=== PATIENT | male | born 1965 | race African-American/Black ===

== ENCOUNTER 2017-08-25 07:42 | Emergency (ER) | payer OTHER ==
[~2017-08-25] VITALS: Ht 167.6 cm; Wt 93.4 kg
[~2017-08-25 07:42] MED LIST: AMLO10TA2 PO; AMLO10TA4 PO; AMOX1TAB61 PO; ASPI-612 PO; ATOR40TA59 PO; CARV25TA2 PO; CLON0.2T PO; CYCL5TAB PO; DOXA1TAB PO; FURO-68 PO; HYDR-2758 PO; HYDR-2869 PO; HYDR-971 PO; HYDR12.58 PO; INSU100C4 SQ; INSU100V13 SQ; ISOS30TA4 PO; LABE200T2 PO; LEVO750T31 PO; LISI1TAB7 PO; LISI40TA PO; LOSA100T6 PO; METO25TA4 PO; POLY17PO29 PO
[2017-08-25] MEDS ORDERED: BENZONATATE 100 MG CAPSULE. PO ONE (08:15)
[2017-08-25] MEDS ORDERED: IPRATRPIUM/ALBUTEROL 0.5/2.5MG 3 ML NEBU. NEB ONE (08:15)
[2017-08-25] MEDS ORDERED: predniSONE 20 MG TABLET PO ONE (08:15)
--- NOTE | 2017-08-25 08:30 | PHYS DOC ---
Past Medical History Past Medical History: Cancer, CHF, Diabetes-Type II, Hypertension, Other Additional Past Medical Histor: COLON CA Past Surgical History: Cholecystectomy, Colectomy Alcohol Use: Occasionally Drug Use: None Adult General Chief Complaint Chief Complaint: COUGH HPI HPI Patient is a 52 year old male with history of diabetes type 2, hypertension, who presents today with a productive cough that began one week. Patient denies any fever. Denies any chest pain or shortness of breath. PCP Dr. Ricketts Review of Systems Review of Systems Constitutional: Denies fever or chills [] Eyes: Denies change in visual acuity, redness, or eye pain [] HENT: Denies nasal congestion or sore throat [] Respiratory: Productive cough, denies shortness of breath [] Cardiovascular: No additional information not addressed in HPI [] GI: Denies abdominal pain, nausea, vomiting, bloody stools or diarrhea [] : Denies dysuria or hematuria [] Musculoskeletal: Denies back pain or joint pain [] Integument: Denies rash or skin lesions [] Neurologic: Denies headache, focal weakness or sensory changes [] Current Medications Current Medications Current Medications Medications (Trade) Dose Ordered Sig/Adam Start Time Stop Time Status Last Admin Dose Admin Albuterol/ Ipratropium (Duoneb) 3 ml 1X ONCE 08/25/17 08:15 08/25/17 08:16 DC 08/25/17 08:52 3 ML Benzonatate (Tessalon Perle) 200 mg 1X ONCE 08/25/17 08:15 08/25/17 08:16 DC 08/25/17 08:25 200 MG Ceftriaxone Sodium (Rocephin Im) 1 gm 1X ONCE 08/25/17 09:30 08/25/17 09:31 DC 08/25/17 09:48 1 GM Furosemide (Lasix) 40 mg 1X ONCE 08/25/17 09:30 08/25/17 09:31 DC 08/25/17 09:49 40 MG Hydralazine HCl (Apresoline) 100 mg 1X STAT 08/25/17 09:20 08/25/17 09:21 DC 08/25/17 09:53 100 MG Labetalol HCl (Trandate) 100 mg 1X STAT 08/25/17 09:21 08/25/17 09:22 DC 08/25/17 09:53 100 MG Lidocaine HCl (Xylocaine-Mpf 1% Vial) 2 ml 1X ONCE 08/25/17 09:30 08/25/17 09:31 DC 08/25/17 09:48 2 ML Prednisone (Prednisone) 60 mg 1X ONCE 08/25/17 08:15 08/25/17 08:16 DC 08/25/17 08:25 60 MG Allergies Allergies Allergies Coded Allergies Type Severity Reaction Last Updated Verified No Known Drug Allergies 03/20/16 No Physical Exam Physical Exam Constitutional: Well developed, well nourished, no acute distress, non-toxic appearance. [] HENT: Normocephalic, atraumatic, bilateral external ears normal, oropharynx moist, no oral exudates, nose normal. [] Eyes: PERRLA, EOMI, conjunctiva normal, no discharge. [] Neck: Normal range of motion, no tenderness, supple, no stridor. [] Cardiovascular:Heart rate regular rhythm, no murmur [] Lungs & Thorax: Patient is actively coughing, diminished breath sounds to posterior lung bases. Abdomen: Bowel sounds normal, soft, no tenderness, no masses, no pulsatile masses. [] Skin: Warm, dry, no erythema, no rash. [] Back: No tenderness, no CVA tenderness. [] Extremities: No tenderness, no cyanosis, no clubbing, ROM intact, no edema. [] Neurologic: Alert and oriented X 3, normal motor function, normal sensory function, no focal deficits noted. [] Psychologic: Affect normal, judgement normal, mood normal. [] Current Patient Data Vital Signs Vital Signs Date Time Temp Pulse Resp B/P (MAP) Pulse Ox O2 Delivery O2 Flow Rate FiO2 08/25/17 09:53 88 182/92 08/25/17 08:52 93 Room Air 08/25/17 07:58 97.7 18 97.7 EKG EKG [] Radiology/Procedures Radiology/Procedures []PROCEDURE: CHEST PA & LATERAL Chest, 2 views, 08/25/2017: History: Cough for one week Comparison is made to a study from 06/15/2017. The heart size and pulmonary vascularity are normal. There is a faint opacity abutting the anterior aspect of the inferior portion of the oblique fissure on the lateral view, most likely lying on the right. The appearance suggests minimal atelectasis/infiltrate. The lungs are otherwise clear. There is no evidence of pleural fluid. The lungs are somewhat hyperexpanded. IMPRESSION: Minimal right middle lobe atelectasis/infiltrate. DICTATED and SIGNED BY: MIRI TAYLOR MD DATE: 08/25/17 0857 CC: TERE RICKETTS MD; MERLINE CASTRO APRN; NON,STAFF ~ Course & Med Decision Making Course & Med Decision Making Pertinent Labs and Imaging studies reviewed. (See chart for details) This is a 52-year-old male patient presenting to the ED today with a productive cough for 1 week. Patient's lungs were diminished posterior lung bases, he was given a DuoNeb treatment. His chest x-ray showed -Minimal right middle lobe atelectasis/infiltrate. Highly suspect he has pneumonia. Vitals on arrival to the ED temperature 97.7, heart rate 88, respiration 18 on room air, O2 sats 95% on room air, blood pressure to 202/103, patient states he has not taken his blood pressure medicines this morning. He was given his morning blood pressure medicines and reminded to ensure he takes his BP medicines as prescribed. Patient was given 1 g of Rocephin. He was discharged on Levaquin. He was instructed to follow-up with his own PCP in 1-3 days. Patient was instructed to return to the ED if his symptoms worsen. Dragon Disclaimer Dragon Disclaimer This electronic medical record was generated, in whole or in part, using a voice recognition dictation system. Departure Departure Impression: Primary Impression: Community acquired bacterial pneumonia Additional Impression: Hypertension Disposition: 01 HOME, SELF-CARE Condition: STABLE Referrals: TERE RICKETTS MD (PCP) follow up with your doctor in 1-3 days Patient Instructions: Hypertension, Pneumonia, Adult Additional Instructions: You have pneumonia. We put you on antibiotics, take them as prescribed. Please return to the emergency room at any point your symptoms worsen. Return to the emergency room if you not able to take your medicines. Ensure you complete your antibiotics. Follow-up with your doctor in the next 1-3 days. Scripts Promethazine HCl/Codeine (Prometh-Codein 6.25-10 mg/5 ml) 5 Ml Syrup 5 ML PO Q6HRS, #80 MISC Prov: MERLINE CASTRO APRN 08/25/17 Levofloxacin (LEVAQUIN) 500 Mg Tablet 1 TAB PO DAILY, #7 TAB Prov: MERLINE CASTRO APRN 08/25/17 Albuterol Sulfate (Proair Respiclick) 90 Mcg Aer.pow.ba 1 PUFF IH PRN Q6HRS Y for SHORTNESS OF BREATH, #1 INHALER Prov: MERLINE CASTRO APRN 08/25/17 Problem Qualifiers Additional Impression: Hypertension Hypertension type: unspecified Qualified Codes: I10 - Essential (primary) hypertension MERLINE CASTRO APRN Aug 25, 2017 08:30
--- NOTE | 2017-08-25 09:06 | RAD ---
Chest, 2 views, 08/25/2017: History: Cough for one week Comparison is made to a study from 06/15/2017. The heart size and pulmonary vascularity are normal. There is a faint opacity abutting the anterior aspect of the inferior portion of the oblique fissure on the lateral view, most likely lying on the right. The appearance suggests minimal atelectasis/infiltrate. The lungs are otherwise clear. There is no evidence of pleural fluid. The lungs are somewhat hyperexpanded. IMPRESSION: Minimal right middle lobe atelectasis/infiltrate.
[2017-08-25] MEDS ORDERED: LABETALOL HCL 100 MG TABLET. PO STA (09:21)
[2017-08-25] MEDS ORDERED: cefTRIAXone IM 1 GM VIAL IM ONE (09:30)
[2017-08-25] MEDS ORDERED: FUROSEMIDE 40 MG TABLET. PO ONE (09:30)
[2017-08-25] MEDS ORDERED: LIDOCAINE 1% PF 2 ML VIAL. INJ ONE (09:30)
[2017-08-25] MEDS ORDERED: PROAIR RESPICL90 MCG IH (10:03)
[2017-08-25] MEDS ORDERED: LEVO500T59 PO (10:03)
[2017-08-25] MEDS ORDERED: PROM5SYR2 PO (10:03)
[2017-08-25 10:17] VITALS: BP 148/82
== END 2017-08-25 10:18 | disposition home or self-care (01) ==
LOC: ER 07:42
DX: J15.9 Unspecified bacterial pneumonia (principal); I11.0 Hypertensive heart disease with heart failure; I50.9 Heart failure, unspecified; E11.9 Type 2 diabetes mellitus without complications; Z85.038 Personal history of other malignant neoplasm of large intestine; Z90.49 Acquired absence of other specified parts of digestive tract
CPT/HCPCS: 71020; 94250; 94640; 96372; 99284; J0696; J7512; J7620

== ENCOUNTER 2017-11-28 16:09 | Emergency (ER) | payer OTHER ==
[2017-11-28] MEDS: DIPHTH,PERTUSS(ACELL),TET TOX 0.5 ML DISP.SYRIN. VAX IM ×2 (17:33)
== END 2017-11-28 17:38 | disposition home or self-care (01) ==
LOC: ER 16:09
DX: S51.852A Open bite of left forearm, initial encounter (principal); E11.9 Type 2 diabetes mellitus without complications; I11.0 Hypertensive heart disease with heart failure; I50.9 Heart failure, unspecified; F14.10 Cocaine abuse, uncomplicated; Z23 Encounter for immunization; Z87.891 Personal history of nicotine dependence; W54.0XXA Bitten by dog, initial encounter; Y93.89 Activity, other specified; Y92.89 Other specified places as the place of occurrence of the external cause; Y99.8 Other external cause status
CPT/HCPCS: 90471; 90715; 99283-25

== ENCOUNTER → 2017-12-02 | Outpatient (CLI) | payer OTHER | END | disposition home or self-care (01) | LOC: RAD 12:35 | DX: M16.11 Unilateral primary osteoarthritis, right hip (principal); M46.06 Spinal enthesopathy, lumbar region; R05 Cough; R06.02 Shortness of breath | CPT/HCPCS: 71046; 72100; 73502 ==

== ENCOUNTER → 2017-12-08 | Outpatient (CLI) | payer OTHER | END | disposition home or self-care (01) | LOC: KCIC CT 14:53 | DX: R10.9 Unspecified abdominal pain (principal); D17.9 Benign lipomatous neoplasm, unspecified; R91.8 Other nonspecific abnormal finding of lung field | CPT/HCPCS: 74176 ==

== ENCOUNTER 2017-12-31 07:14 | Emergency (ER) | payer OTHER ==
[2017-12-31 07:57] LABS: ADD MAN DIFF? NO
[2017-12-31 08:00] LABS: BASO # 0.1 x10^3/uL (0.0-0.2); BASO % 1 % (0-3); EOS # 0.2 x10^3/uL (0.0-0.7); EOS % 2 % (0-3); HEMATOCRIT 34.7 % (39.0-53.0); HEMOGLOBIN 10.9 g/dL (13.0-17.5); LYMPH # 1.5 x10^3/uL (1.0-4.8); LYMPH % 19 % (24-48); MEAN CORPUSCULAR HEMOGLOBIN 23 pg (25-35); MEAN CORPUSCULAR HGB CONC 32 g/dL (31-37); MEAN CORPUSCULAR VOLUME 73 fL (79-100); MONO # 0.5 x10^3/uL (0.0-1.1); MONO % 7 % (0-9); NEUT # 5.6 x10^3uL (1.8-7.7); NEUT % 71 % (31-73); PLATELET COUNT 221 x10^3/uL (140-400); RED BLOOD COUNT 4.77 x10^6/uL (4.30-5.70); RED CELL DISTRIBUTION WIDTH 16.7 % (11.5-14.5); WHITE BLOOD COUNT 7.9 x10^3/uL (4.0-11.0)
[2017-12-31 08:11] LABS: ANION GAP 15 (6-14); BLOOD UREA NITROGEN 30 mg/dL (8-26); BUN/CREATININE RATIO 9 (6-20); CARBON DIOXIDE 22 mmol/L (21-32); CHLORIDE 107 mmol/L (98-107); CREATININE 3.4 mg/dL (0.7-1.3); GLUCOSE 132 mg/dL (70-99); POTASSIUM 3.9 mmol/L (3.5-5.1); SODIUM 144 mmol/L (136-145)
[2017-12-31 08:18] LABS: TROPONINI < 0.017 ng/mL (0.000-0.055)
[2017-12-31 08:18] LABS: ALBUMIN 3.4 g/dL (3.4-5.0); ALBUMIN/GLOBULIN RATIO 0.9 (1.0-1.7); ALK PHOS 89 U/L (46-116); ALT (SGPT) 139 U/L (16-63); AST (SGOT) 80 U/L (15-37); TOTAL BILIRUBIN 0.4 mg/dL (0.2-1.0); TOTAL PROTEIN 7.3 g/dL (6.4-8.2)
[2017-12-31 08:26] LABS: CKMB INDEX 0.8 % (0-4); CKMB MASS 3.6 ng/mL (0.0-3.6); CREATINE KINASE 428 U/L (39-308)
[2017-12-31 08:26] LABS: NT-PRO BNP 1564 pg/mL (0-124)
[2017-12-31] MEDS ORDERED: FUROSEMIDE 40 MG/4 ML VIAL. IVP (08:30)
[2017-12-31 11:08] LABS: PLT ESTIMATE ADEQUATE (ADEQUATE)
== END 2017-12-31 10:39 | disposition home or self-care (01) ==
LOC: ER 07:14
DX: R06.02 Shortness of breath (principal); E10.22 Type 1 diabetes mellitus with diabetic chronic kidney disease; N18.9 Chronic kidney disease, unspecified; I13.0 Hypertensive heart and chronic kidney disease with heart failure and stage 1 through stage 4 chronic kidney disease, or unspecified chronic kidney disease; I50.9 Heart failure, unspecified; I25.10 Atherosclerotic heart disease of native coronary artery without angina pectoris; E78.00 Pure hypercholesterolemia, unspecified; Z90.49 Acquired absence of other specified parts of digestive tract; Z85.038 Personal history of other malignant neoplasm of large intestine; I25.2 Old myocardial infarction; F14.10 Cocaine abuse, uncomplicated; Z87.891 Personal history of nicotine dependence
CPT/HCPCS: 36415; 70450; 71046; 80053; 82553; 83880; 84484; 85025; 93005; 99285-25

== ENCOUNTER → 2018-06-12 | Outpatient (CLI) | payer OTHER ==
[2018-05-01 15:38] VITALS: BP 136/75
[~2018-06-12] MED LIST changes: +ASPI-630 PO; +CALC0.25 PO; +DOCU-109 PO; +DOXA8TAB59 PO; +FERR325T14 PO; +FURO20TA3 PO; +IPRA3AMP29 NEB; -LABE200T2 PO; +LABE200T4 PO; +LEVO500T59 PO; +LISI-130 PO; -LISI40TA PO; +LUBI8CAP4 PO; +POLY17PO3 PO; +PROAIR RESPICL90 MCG IH; +PROM5SYR2 PO
--- NOTE | 2018-06-12 11:13 | RAD ---
Renal ultrasound. 06/12/2018 INDICATION: Chronic renal disease. COMPARISON STUDY: April 26, 2018. Renal ultrasound Discussion: Ultrasound evaluation of the kidneys was performed. Static images are submitted to PACS. Right kidney measures 11.5 x 5.9 x 5.4 cm. Left kidney measures 12.0 x 5.4 x 6.9 cm. Bilateral kidneys are normal in morphology without hydronephrosis, nephrolithiasis, or focal renal lesion. The bladder is partially decompressed during the prevoid portion of the exam. This limits morphologic evaluation. Prevoid volume of 25 cc. Postvoid volume is 2 cc. IMPRESSION: Unremarkable sonographic appearance of the kidneys. Electronically signed by: Juancho Mcfarland MD (06/12/2018 11:10 AM) [id number]
== END | disposition home or self-care (01) ==
LOC: US 10:22
PROVIDERS: ATTEND Internal Medicine Nephrology
DX: I13.0 Hypertensive heart and chronic kidney disease with heart failure and stage 1 through stage 4 chronic kidney disease, or unspecified chronic kidney disease (principal); E11.22 Type 2 diabetes mellitus with diabetic chronic kidney disease; N18.4 Chronic kidney disease, stage 4 (severe); I50.9 Heart failure, unspecified; E78.00 Pure hypercholesterolemia, unspecified; J44.9 Chronic obstructive pulmonary disease, unspecified; I25.10 Atherosclerotic heart disease of native coronary artery without angina pectoris; K21.9 Gastro-esophageal reflux disease without esophagitis; Z90.49 Acquired absence of other specified parts of digestive tract
CPT/HCPCS: 76770

== ENCOUNTER 2018-08-09 01:05 | Inpatient (IN) | payer OTHER ==
[~2018-08-09] VITALS: Ht 167.6 cm; Wt 100.2 kg
[~2018-08-09 01:05] MED LIST changes: -AMLO10TA2 PO; +AMLO10TA6 PO; -LOSA100T6 PO; +LOSA100T7 PO
--- NOTE | 2018-08-09 02:06 | PHYS DOC ---
Past Medical History Past Medical History: Anemia, CAD, Cancer, CHF, High Cholesterol, Hypertension , [place], Renal Disease, Other Additional Past Medical Histor: COLON CA Past Surgical History: Cholecystectomy, Colectomy Alcohol Use: None Drug Use: Cocaine Adult General Chief Complaint Chief Complaint: LOWER EXTREMITY SWELLING [facility] HPI Patient is a 53 year old male who presents with complaining of shortness of breath and increasing edema of his feet. He states he is on a diuretic but it's not working despite being compliant and that he has increased fluid buildup and some shortness of breath. He is concerned that he might be getting CHF again. Patient was most recently admitted in April 2018 with atypical chest pain and CHF as well as acute renal failure. Please see the discharge summary and Hospital course below from that hospitalization. Patient has followed up with his renal specialist. He states he saw a specialist in June and was told to take a teaspoon of baking soda every day and this supposed to follow-up on August 18. Patient states he has been compliant with medications. Final Diagnosis - 05/01/2018 Problems Medical Problems: (1) Atypical chest pain Status: Acute (2) Congestive heart failure (CHF) Status: Acute (3) Renal failure Status: Acute Brief Hospital Course HISTORY OF PRESENT ILLNESS: The patient is a pleasant 53-year-old male who presents with shortness of breath. While in the ER, he was noted to have vascular congestion and elevated BNP. He also has a cough. He is noted to have [id number] systolic and diastolic heart failure with a flare. The patient is being admitted for consultation with Cardiology. Renal function was monitored. he may need HD - he has seen asked to f/u with them as an outpt His constipation was reviewed with GI and meds were Rx'ed. He needs an outpt f/ u for colo. He is stable and at baseline and ok for dc with close outpt f/u Patient History: Review of Systems Review of Systems Constitutional: Denies fever or chills [] Eyes: Denies change in visual acuity, redness, or eye pain [] HENT: Denies nasal congestion or sore throat [] Respiratory: Denies cough , positive shortness of breath [] Cardiovascular: No additional information not addressed in HPI [] GI: Denies abdominal pain, nausea, vomiting, bloody stools or diarrhea [] : Denies dysuria or hematuria [] Musculoskeletal: Denies back pain or joint pain [] Integument: Denies rash or skin lesions [] Neurologic: Denies headache, focal weakness or sensory changes [] Endocrine: Denies polyuria or polydipsia [] All other systems were reviewed and found to be within normal limits, except as documented in this note. Current Medications Current Medications Current Medications Medications (Trade) Dose Ordered Sig/Adam Start Time Stop Time Status Last Admin Dose Admin Furosemide (Lasix) 40 mg 1X ONCE 08/09/18 04:00 08/09/18 04:01 08/09/18 03:42 40 MG Allergies Allergies Allergies Coded Allergies Type Severity Reaction Last Updated Verified No Known Drug Allergies 03/20/16 No Physical Exam Physical Exam Constitutional: Well developed, well nourished, no acute distress, non-toxic appearance. [] HENT: Normocephalic, atraumatic, bilateral external ears normal, oropharynx moist, no oral exudates, nose normal. [] Eyes: PERRLA, EOMI, conjunctiva normal, no discharge. [] Neck: Normal range of motion, no tenderness, supple, no stridor. [] Cardiovascular:Heart rate regular rhythm, no murmur [] Lungs & Thorax: Bilateral breath sounds clear to auscultation [] Abdomen: Bowel sounds normal, soft, no tenderness, no masses, no pulsatile masses. [] Skin: Warm, dry, no erythema, no rash. [] Back: No tenderness, no CVA tenderness. [] Extremities: No tenderness, no cyanosis, no clubbing, ROM intact, 1-2+ edema of ankles and feet. [] Neurologic: Alert and oriented X 3, normal motor function, normal sensory function, no focal deficits noted. [] Psychologic: Affect normal, judgement normal, mood normal. [] Current Patient Data Vital Signs Vital Signs Date Time Temp Pulse Resp B/P (MAP) Pulse Ox O2 Delivery O2 Flow Rate FiO2 08/09/18 03:00 92 18 179/82 (114) 95 08/09/18 01:28 98.2 Room Air 98.2 Lab Values Laboratory Tests Test 08/09/18 01:37 White Blood Count 8.0 x10^3/uL (4.0-11.0) Red Blood Count 4.05 x10^6/uL (4.30-5.70) L Hemoglobin 9.5 g/dL (13.0-17.5) L Hematocrit 29.2 % (39.0-53.0) L Mean Corpuscular Volume 72 fL (79-100) L Mean Corpuscular Hemoglobin 23 pg (25-35) L Mean Corpuscular Hemoglobin Concent 32 g/dL (31-37) Red Cell Distribution Width 17.6 % (11.5-14.5) H Platelet Count 215 x10^3/uL (140-400) Neutrophils (%) (Auto) 77 % (31-73) H Lymphocytes (%) (Auto) 15 % (24-48) L Monocytes (%) (Auto) 6 % (0-9) Eosinophils (%) (Auto) 1 % (0-3) Basophils (%) (Auto) 1 % (0-3) Neutrophils # (Auto) 6.2 x10^3uL (1.8-7.7) Lymphocytes # (Auto) 1.2 x10^3/uL (1.0-4.8) Monocytes # (Auto) 0.5 x10^3/uL (0.0-1.1) Eosinophils # (Auto) 0.1 x10^3/uL (0.0-0.7) Basophils # (Auto) 0.0 x10^3/uL (0.0-0.2) Sodium Level 146 mmol/L (136-145) H Potassium Level 4.1 mmol/L (3.5-5.1) Chloride Level 111 mmol/L (98-107) H Carbon Dioxide Level 23 mmol/L (21-32) Anion Gap 12 (6-14) Blood Urea Nitrogen 48 mg/dL (8-26) H Creatinine 4.1 mg/dL (0.7-1.3) H Estimated GFR (Cockcroft-Gault) 18.5 BUN/Creatinine Ratio 12 (6-20) Glucose Level 152 mg/dL (70-99) H Calcium Level 8.3 mg/dL (8.5-10.1) L Total Bilirubin 0.4 mg/dL (0.2-1.0) Aspartate Amino Transferase (AST) 43 U/L (15-37) H Alanine Aminotransferase (ALT) 64 U/L (16-63) H Alkaline Phosphatase 79 U/L (46-116) Troponin I Quantitative < 0.017 ng/mL (0.000-0.055) TI-Civ-P-Type Natriuretic Peptide 3248 pg/mL (0-124) H Total Protein 7.1 g/dL (6.4-8.2) Albumin 3.1 g/dL (3.4-5.0) L Albumin/Globulin Ratio 0.8 (1.0-1.7) L Laboratory Tests 08/09/18 01:37 Laboratory Tests 08/09/18 01:37 EKG EKG Sinus rhythm at a rate of 78[] Radiology/Procedures Radiology/Procedures Portable chest x-ray- pulmonary vascular congestion with evolving pulmonary edema[] Course & Med Decision Making Course & Med Decision Making Pertinent Labs and Imaging studies reviewed. (See chart for details) Patient appears to have stable pulse ox when the patient starts to talk he will desat to low 90s as a result of his pulmonary vascular congestion Discussed with Dr. Ricketts who agrees to admit the patient [] Dragon Disclaimer Dragon Disclaimer This electronic medical record was generated, in whole or in part, using a voice recognition dictation system. Departure Departure Impression: Primary Impression: CHF (congestive heart failure) Additional Impression: Renal failure (ARF), acute on chronic Disposition: ADMITTED INPATIENT Admitting Physician: James Ricketts Condition: STABLE Referrals: JAMES RICKETTS MD (PCP) Problem Qualifiers ANTHONY DORANTES MD Aug 09, 2018 02:06
[2018-08-09 02:21] LABS: BASO % 1 % (0-3); EOS # 0.1 x10^3/uL (0.0-0.7); EOS % 1 % (0-3); HEMATOCRIT 29.2 % (39.0-53.0); HEMOGLOBIN 9.5 g/dL (13.0-17.5); LYMPH # 1.2 x10^3/uL (1.0-4.8); LYMPH % 15 % (24-48); MEAN CORPUSCULAR HEMOGLOBIN 23 pg (25-35); MEAN CORPUSCULAR HGB CONC 32 g/dL (31-37); MEAN CORPUSCULAR VOLUME 72 fL (79-100); MONO # 0.5 x10^3/uL (0.0-1.1); MONO % 6 % (0-9); NEUT # 6.2 x10^3uL (1.8-7.7); NEUT % 77 % (31-73); PLATELET COUNT 215 x10^3/uL (140-400); RED BLOOD COUNT 4.05 x10^6/uL (4.30-5.70); RED CELL DISTRIBUTION WIDTH 17.6 % (11.5-14.5)
[2018-08-09 02:33] LABS: CALCIUM 8.3 mg/dL (8.5-10.1); CREATININE 4.1 mg/dL (0.7-1.3); GFR 18.5; POTASSIUM 4.1 mmol/L (3.5-5.1)
[2018-08-09 02:41] LABS: ALBUMIN 3.1 g/dL (3.4-5.0); ALBUMIN/GLOBULIN RATIO 0.8 (1.0-1.7); TOTAL BILIRUBIN 0.4 mg/dL (0.2-1.0); TOTAL PROTEIN 7.1 g/dL (6.4-8.2)
[2018-08-09] MEDS ORDERED: FUROSEMIDE 40 MG/4 ML VIAL. IVP ONE (04:00)
--- NOTE | 2018-08-09 04:20 | RAD ---
EXAM: AP View of the chest DATE: 08/09/2018 2:31 AM INDICATION: cough COMPARISON: 12/31/2017, 04/23/2018 FINDINGS: Stable mild cardiomegaly. Mediastinal and hilar contours are stable. Patchy opacities in the peripheral right lung base, likely atelectasis. No lobar consolidation. No pleural effusion or pneumothorax. IMPRESSION: Patchy right lung base opacities likely atelectasis. Electronically signed by: Rizwan Jaramillo MD (08/09/2018 4:16 AM) [facility]
--- NOTE | 2018-08-09 04:55 | EKG ---
[facility] [address] [place] [address] Test Date: 2018-08-09 Test Time: 02:21:04 Pat Name: ZARI ELIZONDO Department: Room: 572 1 Gender: M [employer] Operator: : 1965 Requested By: ANTHONY DORANTES Order Number: [id number] Reading MD: Jai Tapia MD Measurements Intervals [place] Rate: 77 P: 69 OK: 174 QRS: 43 QRSD: 78 T: 16 QT: 372 QTc: 427 Interpretive Statements SINUS RHYTHM NON-SPECIFIC ST/T CHANGES Electronically Signed On 08-10-2018 9:12:18 CDT by Jai Tapia MD
[2018-08-09 05:51] VITALS: BP 167/84
[2018-08-09] MEDS ORDERED: CLON0.2T PO (06:40)
[2018-08-09] MEDS ORDERED: DOXY100C2 PO (06:40)
[2018-08-09] MEDS ORDERED: INSU100I17 SQ (06:40)
[2018-08-09] MEDS ORDERED: CALC30CA PO (06:40)
[2018-08-09 07:10] VITALS: BP 170/82
[2018-08-09] MEDS: INSULIN LISPRO 300 UNITS/3 ML INSULN.PEN. SQ SCH ×3 (08:00→18:01)
[2018-08-09] MEDS ORDERED: CALCIFEDIOL PO SCH (09:00)
[2018-08-09] MEDS ORDERED: FUROSEMIDE 40 MG TABLET. PO SCH (09:00)
[2018-08-09] MEDS: DOXYCYCLINE HYCLATE 100 MG TABLET PO SCH ×2 (09:10→20:45)
[2018-08-09] MEDS: ISOSORBIDE MONONITRATE ER 30 MG TAB.ER.24H PO SCH (09:10)
[2018-08-09] MEDS: amLODIPine BESYLATE 10 MG TABLET PO SCH (09:10)
[2018-08-09] MEDS: cloNIDine HCL 0.2 MG TABLET PO SCH ×2 (09:11→22:23)
[2018-08-09] MEDS: CARVEDILOL 12.5 MG TABLET. PO SCH ×2 (09:11→17:58)
[2018-08-09 11:36] VITALS: BP 132/62
[2018-08-09] MEDS: IPRATRPIUM/ALBUTEROL 0.5/2.5MG 3 ML NEBU. NEB SCH ×3 (11:41→19:51)
[2018-08-09] MEDS: POTASSIUM CHLORIDE 10 MEQ TABLET.ER. PO SCH (13:55)
[2018-08-09] MEDS: FUROSEMIDE 40 MG/4 ML VIAL. IVP SCH (13:55)
--- NOTE | 2018-08-09 13:59 | PDOC1 ---
History and Physical Date of Admission Date of Admission 08/09/18 Identification/Chief Complaint Chief Complaint Leg swelling Problems: (1) Extremity edema (2) Renal failure (ARF), acute on chronic (3) CHF (congestive heart failure) (4) Anemia (5) Community acquired bacterial pneumonia (6) Diabetes mellitus Source Source: Patient History of Present Illness History of Present Illness Patient presents to the ER with lower extremity edema, progressively worsening for the past 4 days. Pt visited [facility] ER last Friday, was diagnosed with community acquired pneumonia and discharged from ER on Doxycycline. Since then, he's been mostly inactive and the bilateral lower extremities started to accumulate more fluid. He has been taking his Lasix as prescribed - Lasix 40mg qam and 20 mg qpm. His acid treater is Dr. Heard, and his next appt is Aug 18. Patient last had his labs drawn last Friday. He denies any chest pain or palpitations. He does endorse productive cough, which has improved since starting the antibiotics as well as shortness of breath. Past Medical History Cardiovascular: HTN, Hyperlipidemia Pulmonary: No pertinent hx CENTRAL NERVOUS SYSTEM: Other GI: Constipation Heme/Onc: Anemia NOS, Cancer Hepatobiliary: Cholelithiasis Psych: No pertinent hx Rheumatologic: No pertinent hx Infectious disease: No pertinent hx Renal/: Chronic renal insuff Endocrine: Diabetes Past Surgical History Past Surgical History: Cholecystectomy, Colon Resection Family History Family History: Diabetes, Hypertension Social History ALCOHOL: none Drugs: None Current Problem List Problem List Problems Medical Problems: (1) CHF (congestive heart failure) Status: Acute (2) Renal failure (ARF), acute on chronic Status: Acute Current Medications Current Medications Current Medications Medications (Trade) Dose Ordered Sig/Adam Start Time Stop Time Status Last Admin Dose Admin Albuterol/ Ipratropium (Duoneb) 3 ml RTQID 08/09/18 08:00 08/09/18 11:41 3 ML Amlodipine Besylate (Norvasc) 10 mg DAILY 08/09/18 09:00 08/09/18 09:10 10 MG Atorvastatin Calcium (Lipitor) 40 mg HS 08/09/18 21:00 Carvedilol (Coreg) 25 mg BIDWMEALS 08/09/18 08:00 08/09/18 09:11 25 MG Clonidine HCl (Catapres) 0.2 mg BID 08/09/18 09:00 08/09/18 09:11 0.2 MG Doxazosin Mesylate (Cardura) 8 mg QHS 08/09/18 21:00 Doxycycline Hyclate (Vibra-Tab) 100 mg BID 08/09/18 09:00 08/13/18 21:01 08/09/18 09:10 100 MG Furosemide (Lasix) 40 mg BID92 08/09/18 14:00 Hydralazine HCl (Apresoline) 100 mg TID 08/09/18 09:00 08/09/18 09:09 100 MG Insulin Glargine (Lantus) 30 units QHS 08/09/18 21:00 Insulin Human Lispro (HumaLOG) 5 units TIDWMEALS 08/09/18 08:00 08/09/18 12:09 5 UNITS Isosorbide Mononitrate (Imdur) 60 mg DAILY 08/09/18 09:00 08/09/18 09:10 60 MG Non-Formulary Medication (Calcifediol (Rayaldee)) 300 mcg DAILY 08/09/18 09:00 08/09/18 13:02 DC Potassium Chloride (Klor-Con) 10 meq BID92 08/09/18 14:00 Allergies Allergies Allergies Coded Allergies Type Severity Reaction Last Updated Verified No Known Drug Allergies 03/20/16 No ROS Review of System CONSTITUTIONAL: No fever or chills EYES: No recent changes SKIN: No rash or itching CARDIOVASCULAR: No chest pain, syncope, palpitations, or edema RESPIRATORY: + SOB and cough GASTROINTESTINAL: No nausea, vomiting or abdominal pain NEUROLOGICAL: No headaches or weakness ENDOCRINE: No cold or heat intolerance GENITOURINARY: No urgency or frequency of urination MUSCULOSKELETAL: No back pain or joint pain LYMPHATICS: No enlarged lymph nodes PSYCHIATRIC: No anxiety or depression Physical Exam Physical Exam GEN.: No apparent distress. Alert and oriented. HEENT: Head is normocephalic, atraumatic NECK: Supple. LUNGS: Clear to auscultation. HEART: RRR, S1, S2 present. Peripheral pulses intact ABDOMEN: Soft, nontender. Positive bowel sounds. EXTREMITIES: Without any cyanosis. 1+ BLE edema NEUROLOGIC: Normal speech, normal tone PSYCHIATRIC: Normal affect, normal mood. SKIN: No ulcerations Vitals Vitals Vital Signs Date Time Temp Pulse Resp B/P (MAP) Pulse Ox O2 Delivery O2 Flow Rate FiO2 08/09/18 11:44 93 Room Air 08/09/18 11:36 98.0 74 17 132/62 (85) 98.0 Labs Labs Laboratory Tests Test 08/09/18 01:37 08/09/18 07:52 08/09/18 11:15 White Blood Count 8.0 x10^3/uL (4.0-11.0) Red Blood Count 4.05 x10^6/uL (4.30-5.70) Hemoglobin 9.5 g/dL (13.0-17.5) Hematocrit 29.2 % (39.0-53.0) Mean Corpuscular Volume 72 fL (79-100) Mean Corpuscular Hemoglobin 23 pg (25-35) Mean Corpuscular Hemoglobin Concent 32 g/dL (31-37) Red Cell Distribution Width 17.6 % (11.5-14.5) Platelet Count 215 x10^3/uL (140-400) Neutrophils (%) (Auto) 77 % (31-73) Lymphocytes (%) (Auto) 15 % (24-48) Monocytes (%) (Auto) 6 % (0-9) Eosinophils (%) (Auto) 1 % (0-3) Basophils (%) (Auto) 1 % (0-3) Neutrophils # (Auto) 6.2 x10^3uL (1.8-7.7) Lymphocytes # (Auto) 1.2 x10^3/uL (1.0-4.8) Monocytes # (Auto) 0.5 x10^3/uL (0.0-1.1) Eosinophils # (Auto) 0.1 x10^3/uL (0.0-0.7) Basophils # (Auto) 0.0 x10^3/uL (0.0-0.2) Sodium Level 146 mmol/L (136-145) Potassium Level 4.1 mmol/L (3.5-5.1) Chloride Level 111 mmol/L (98-107) Carbon Dioxide Level 23 mmol/L (21-32) Anion Gap 12 (6-14) Blood Urea Nitrogen 48 mg/dL (8-26) Creatinine 4.1 mg/dL (0.7-1.3) Estimated GFR (Cockcroft-Gault) 18.5 BUN/Creatinine Ratio 12 (6-20) Glucose Level 152 mg/dL (70-99) Calcium Level 8.3 mg/dL (8.5-10.1) Total Bilirubin 0.4 mg/dL (0.2-1.0) Aspartate Amino Transf (AST/SGOT) 43 U/L (15-37) Alanine Aminotransferase (ALT/SGPT) 64 U/L (16-63) Alkaline Phosphatase 79 U/L (46-116) Troponin I Quantitative < 0.017 ng/mL (0.000-0.055) VR-Fvn-P-Type Natriuretic Peptide 3248 pg/mL (0-124) Total Protein 7.1 g/dL (6.4-8.2) Albumin 3.1 g/dL (3.4-5.0) Albumin/Globulin Ratio 0.8 (1.0-1.7) Glucose (Fingerstick) 105 mg/dL (70-99) 124 mg/dL (70-99) Laboratory Tests Test 08/09/18 01:37 08/09/18 07:52 08/09/18 11:15 White Blood Count 8.0 x10^3/uL (4.0-11.0) Red Blood Count 4.05 x10^6/uL (4.30-5.70) Hemoglobin 9.5 g/dL (13.0-17.5) Hematocrit 29.2 % (39.0-53.0) Mean Corpuscular Volume 72 fL (79-100) Mean Corpuscular Hemoglobin 23 pg (25-35) Mean Corpuscular Hemoglobin Concent 32 g/dL (31-37) Red Cell Distribution Width 17.6 % (11.5-14.5) Platelet Count 215 x10^3/uL (140-400) Neutrophils (%) (Auto) 77 % (31-73) Lymphocytes (%) (Auto) 15 % (24-48) Monocytes (%) (Auto) 6 % (0-9) Eosinophils (%) (Auto) 1 % (0-3) Basophils (%) (Auto) 1 % (0-3) Neutrophils # (Auto) 6.2 x10^3uL (1.8-7.7) Lymphocytes # (Auto) 1.2 x10^3/uL (1.0-4.8) Monocytes # (Auto) 0.5 x10^3/uL (0.0-1.1) Eosinophils # (Auto) 0.1 x10^3/uL (0.0-0.7) Basophils # (Auto) 0.0 x10^3/uL (0.0-0.2) Sodium Level 146 mmol/L (136-145) Potassium Level 4.1 mmol/L (3.5-5.1) Chloride Level 111 mmol/L (98-107) Carbon Dioxide Level 23 mmol/L (21-32) Anion Gap 12 (6-14) Blood Urea Nitrogen 48 mg/dL (8-26) Creatinine 4.1 mg/dL (0.7-1.3) Estimated GFR (Cockcroft-Gault) 18.5 BUN/Creatinine Ratio 12 (6-20) Glucose Level 152 mg/dL (70-99) Calcium Level 8.3 mg/dL (8.5-10.1) Total Bilirubin 0.4 mg/dL (0.2-1.0) Aspartate Amino Transf (AST/SGOT) 43 U/L (15-37) Alanine Aminotransferase (ALT/SGPT) 64 U/L (16-63) Alkaline Phosphatase 79 U/L (46-116) Troponin I Quantitative < 0.017 ng/mL (0.000-0.055) ZA-Wkb-U-Type Natriuretic Peptide 3248 pg/mL (0-124) Total Protein 7.1 g/dL (6.4-8.2) Albumin 3.1 g/dL (3.4-5.0) Albumin/Globulin Ratio 0.8 (1.0-1.7) Glucose (Fingerstick) 105 mg/dL (70-99) 124 mg/dL (70-99) VTE Prophylaxis Ordered VTE Prophylaxis Devices: Yes VTE Pharmacological Prophylaxi: Yes (Heparin) Assessment/Plan Assessment/Plan 53yo M hx of CKD Stage IV, HFpEF (diastolic heart failure), hypertension, Type II diabetes, hyperlipidemia presents with lower extremity swelling, found to have HTN urgency and acute on chronic renal failure. 1. Bilateral lower extremity edema: diurese, consult nephro to assist and monitor renal function, Lasix 40mg IV bid 2. HTN urgency: place back on meds and diurese which should assist with lowering bp 3. Acute on chronic renal failure: nephro consulted, baseline eGFR approximately 20, followed by Dr. Heard as outpt 4. Acute on chronic diastolic heart failure: HFpEF, yahir, pt has f/u appt with Cards later this month, Dr. Spears 5. T2DM: levemir 30u qhs and regular insulin 5 units wm 6. HLD: cont statin 7. Anemia of chronic disease: possible iron infusion as outpt 8. CAP: cont Doxycycline, diagnosed and started abx 08/03/18 FEN: Renal diet, replete lytes PPx: Heparin Dispo: admit, possible dc tomorrow if renal function stable and euvolemic TERE SHINE MD Aug 09, 2018 13:59
[2018-08-09 15:02] VITALS: BP 159/74
[2018-08-09 15:53] LABS: BILIRUBIN,URINE NEGATIVE (NEG); CLARITY,URINE CLEAR; COLOR,URINE YELLOW; NITRITE,URINE NEGATIVE (NEG); PROTEIN,URINE 100 mg/dL (NEG-TRACE); UROBILINOGEN,URINE 0.2 mg/dL (0.2 mg/dL)
[2018-08-09 15:57] LABS: BACTERIA,URINE 0 /HPF (0-FEW); RBC,URINE 0 /HPF (0-2)
[2018-08-09 15:58] LABS: SQUAMOUS EPITHELIAL CELL,UR OCC /LPF
[2018-08-09 16:00] LABS: BARBITURATES NEG (NEG); BENZODIAZEPINES NEG (NEG); CANNABINOIDS NEG (NEG); COCAINE NEG (NEG); METHADONE NEG (NEG); OPIATES NEG (NEG); PHENCYCLIDINE NEG (NEG)
[2018-08-09 16:04] LABS: AMPHETAMINE/METHAMPHETAMINE NEG (NEG)
[2018-08-09 19:00] VITALS: BP 148/73
[2018-08-09] MEDS: ATORVASTATIN CALCIUM 40 MG TABLET. PO SCH (20:45)
[2018-08-09] MEDS: DOXAZOSIN MESYLATE 4 MG TABLET. PO SCH (20:47)
[2018-08-09] MEDS: HYDROcodone/APAP 5/325MG 1 TAB TABLET PO PRN (20:48)
[2018-08-09] MEDS ORDERED: INSULIN GLARGINE 300 UNITS/3 ML INSULN.PEN. SQ SCH (21:00)
[2018-08-09] MEDS: HEPARIN for SUB-Q USE 5,000 UNIT/ML VIAL. SQ SCH (22:00)
--- NOTE | 2018-08-09 22:34 | CONS ---
DATE OF CONSULTATION: 08/09/2018 REQUESTING PHYSICIAN: Dr. James Ricketts. REASON FOR CONSULTATION: Renal failure and edema. HISTORY OF PRESENT ILLNESS: A 53-year-old gentleman with history of diabetes mellitus, hypertension, congestive cardiomyopathy and chronic kidney disease stage 4. The patient follows with Dr. Heard of our practice for his renal failure. His GFR by his report has been 18 mL per minute. He currently is admitted in setting of increasing shortness of breath and lower extremity edema. No chest pain. PAST MEDICAL HISTORY: Diabetes mellitus, hypertension, chronic kidney disease stage 4, congestive cardiomyopathy. ALLERGIES: None. MEDICATIONS: Reviewed from medication list. FAMILY HISTORY: Noncontributory. SOCIAL HISTORY: The patient resides with assistance. REVIEW OF SYSTEMS: No headaches, sinus problem, nasal drainage, epistaxis, change in vision or hearing, no difficulty with swallowing. No fever, chills, cough, sputum production or hemoptysis. He has had shortness of breath, dyspnea on exertion. No abdominal pain or upper or lower gastrointestinal blood loss. No nausea, vomiting, diarrhea, seizures or malignancy. He has had lower extremity edema. PHYSICAL EXAMINATION: GENERAL APPEARANCE: The patient awake, conversant, appropriate. HEENT: Clear. NECK: No increased JVD. No thyromegaly, mass or adenopathy. LUNGS: Clear. CARDIAC: Without S3 or rub. ABDOMEN: Obese, bowel sounds are present. Nontender. EXTREMITIES: Bilateral lower extremity edema of 2+ pitting. NEUROLOGIC: Nonfocal localizing. PSYCHIATRIC: Good attention to detail, appropriate affect. LABORATORY DATA: Hemoglobin 9.5, hematocrit 29%. Sodium 146, potassium 4.1, chloride 111, CO2 of 23, BUN is 48, creatinine 4.1, GFR is 18.5. IMPRESSION: 1. Chronic kidney disease stage 4, likely secondary to diabetes mellitus. 2. Hypertension. 3. Congestive cardiomyopathy with edema. RECOMMENDATIONS: 1. Ongoing diuresis. 2. Assess renal function when euvolemic. At that time, decision can be made as to need for dialysis. WILBER MACE MD DR: HARLEY/vaani JOB#: [id number] / [id number]
[2018-08-09 23:00] VITALS: BP 165/83
[2018-08-09] MEDS ORDERED: hydrOXYzine PAMOATE 25 MG CAPSULE PO PRN (23:30)
[2018-08-09] MEDS: PROMETH/CODEINE 6.25/10MG 5 ML SYRUP. PO PRN (23:34)
[2018-08-10 03:00] VITALS: BP 141/68
[2018-08-10 04:38] LABS: CALCIUM 8.3 mg/dL (8.5-10.1); CREATININE 4.2 mg/dL (0.7-1.3); MAGNESIUM 1.6 mg/dL (1.8-2.4); POTASSIUM 3.9 mmol/L (3.5-5.1)
[2018-08-10] MEDS: HEPARIN for SUB-Q USE 5,000 UNIT/ML VIAL. SQ SCH ×2 (06:00→20:49)
[2018-08-10 07:00] VITALS: BP 159/78
[2018-08-10] MEDS: IPRATRPIUM/ALBUTEROL 0.5/2.5MG 3 ML NEBU. NEB SCH ×4 (07:42→19:38)
[2018-08-10] MEDS: INSULIN LISPRO 300 UNITS/3 ML INSULN.PEN. SQ SCH ×3 (08:00→17:57)
[2018-08-10] MEDS ORDERED: MAGNESIUM SULFATE 2GM 50 ML IV ONE (09:30)
[2018-08-10] MEDS: PROMETH/CODEINE 6.25/10MG 5 ML SYRUP. PO PRN ×3 (09:56→22:37)
[2018-08-10] MEDS: HYDROcodone/APAP 5/325MG 1 TAB TABLET PO PRN ×2 (09:56→22:38)
[2018-08-10] MEDS: ISOSORBIDE MONONITRATE ER 30 MG TAB.ER.24H PO SCH (09:58)
[2018-08-10] MEDS: amLODIPine BESYLATE 10 MG TABLET PO SCH (09:59)
[2018-08-10] MEDS: cloNIDine HCL 0.2 MG TABLET PO SCH ×3 (09:59→20:49)
[2018-08-10] MEDS: POTASSIUM CHLORIDE 10 MEQ TABLET.ER. PO SCH ×2 (10:01→15:42)
[2018-08-10] MEDS: CARVEDILOL 12.5 MG TABLET. PO SCH ×2 (10:01→17:57)
[2018-08-10] MEDS: FUROSEMIDE 40 MG/4 ML VIAL. IVP SCH ×2 (10:03→15:42)
[2018-08-10] MEDS: DOXYCYCLINE HYCLATE 100 MG TABLET PO SCH ×2 (10:08→20:47)
--- NOTE | 2018-08-10 10:40 | PDOC ---
SUBJECTIVE ROS Pt states he is doing well, LE edema Improved . Good UOP. Reports he has been Told at Dr. Heard's Office that his Kidney function has been 18% and he doesnt need Dialysis Yet He would like to go back and follow with Dr. Heard Post dc . His appt is on Aug 18 OBJECTIVE Vital Signs Vital Signs Date Time Temp Pulse Resp B/P (MAP) Pulse Ox O2 Delivery O2 Flow Rate FiO2 08/10/18 10:01 79 159/78 08/10/18 09:56 16 Room Air 08/10/18 07:00 96.8 93 96.8 I & 0 Intake and Output 08/10/18 07:00 Intake Total 960 ml Output Total 800 ml Balance 160 ml Intake Oral 960 ml Output Urine Total 800 ml # Voids 2 PHYSICAL EXAM Physical Exam GENERAL : NAD conversant, appropriate. HEENT: Clear. NECK: No increased JVD. LUNGS: Clear, Non labored CARDIAC: Without S3 or rub. ABDOMEN: Obese, bowel sounds are present. Nontender. EXTREMITIES: Bilateral lower extremity edema of 2+ pitting. NEUROLOGIC: Nonfocal localizing. - No Cardenas DIAGNOSIS/ASSESSMENT Assessment & Plan Chronic kidney disease stage 4, likely secondary to diabetes mellitus Follows with Dr. Heard Creatinine at his Baseline currently even with IV Diuretics No uremic Symptoms or Signs, No Emergent Indication for HD, Pt reluctant as well Edema/ CMP - Continue IV Diuretics today As per weight Recorded in the system- wt Going up- though Pt reports Improvement in LE edema He is also on Hydralazibe and amlodipine renal function stable Consider switching to PO Tomorrow and Likely DC Home tomorrow if stable He Has appt with Dr. Heard on 08/18 Hypertension- On multiple meds Discussed with Pt and RN COMMENT/RELEVANT DATA Meds Current Medications Medications (Trade) Dose Ordered Sig/Adam Start Time Stop Time Status Last Admin Dose Admin Acetaminophen/ Hydrocodone Bitart (Lortab 5/325) 1 tab BID PRN 08/09/18 14:15 08/10/18 09:56 1 TAB Albuterol/ Ipratropium (Duoneb) 3 ml RTQID 08/09/18 08:00 08/10/18 07:42 3 ML Amlodipine Besylate (Norvasc) 10 mg DAILY 08/09/18 09:00 08/10/18 09:59 10 MG Atorvastatin Calcium (Lipitor) 40 mg HS 08/09/18 21:00 08/09/18 20:45 40 MG Carvedilol (Coreg) 25 mg BIDWMEALS 08/09/18 08:00 08/10/18 10:01 25 MG Clonidine HCl (Catapres) 0.2 mg BID 08/09/18 09:00 08/10/18 09:59 0.2 MG Doxazosin Mesylate (Cardura) 8 mg QHS 08/09/18 21:00 08/09/18 20:47 8 MG Doxycycline Hyclate (Vibra-Tab) 100 mg BID 08/09/18 09:00 08/13/18 21:01 08/10/18 10:08 100 MG Furosemide (Lasix) 40 mg BID92 08/09/18 14:00 08/10/18 10:03 40 MG Heparin Sodium (Porcine) (Heparin Sodium) 5,000 unit Q8HRS 08/09/18 22:00 Hydralazine HCl (Apresoline) 100 mg TID 08/09/18 09:00 08/10/18 10:00 100 MG Hydroxyzine Pamoate (Vistaril) 25 mg PRN QHS PRN 08/09/18 23:30 Insulin Glargine (Lantus) 25 units QHS 08/10/18 21:00 Insulin Human Lispro (HumaLOG) 5 units TIDWMEALS 08/09/18 08:00 08/09/18 18:01 5 UNITS Isosorbide Mononitrate (Imdur) 60 mg DAILY 08/09/18 09:00 08/10/18 09:58 60 MG Magnesium Sulfate 50 ml @ 25 mls/hr 1X ONCE 08/10/18 09:30 08/10/18 11:29 08/10/18 10:06 25 MLS/HR Non-Formulary Medication (Calcifediol (Rayaldee)) 300 mcg DAILY 08/09/18 09:00 08/09/18 13:02 DC Potassium Chloride (Klor-Con) 10 meq BID92 08/09/18 14:00 08/10/18 10:01 10 MEQ Promethazine HCl/ Codeine (Phenergan With Codeine Oral Syrup) 5 ml PRN Q6HRS PRN 08/09/18 23:30 08/10/18 09:56 5 ML Lab Laboratory Tests Test 08/09/18 11:15 08/09/18 15:45 08/09/18 15:47 08/09/18 16:42 Glucose (Fingerstick) 124 mg/dL (70-99) 171 mg/dL (70-99) Urine Collection Type Unknown Urine Color Yellow Urine Clarity Clear Urine pH 6.0 Urine Specific [place] 1.010 Urine Protein 100 mg/dL (NEG-TRACE) Urine Glucose (UA) Negative mg/dL (NEG) Urine Ketones (Stick) Negative mg/dL (NEG) Urine Blood Negative (NEG) Urine Nitrite Negative (NEG) Urine Bilirubin Negative (NEG) Urine Urobilinogen Dipstick 0.2 mg/dL (0.2 mg/dL) Urine Leukocyte Esterase Negative (NEG) Urine RBC 0 /HPF (0-2) Urine WBC 1-4 /HPF (0-4) Urine Squamous Epithelial Cells Occ /LPF Urine Bacteria 0 /HPF (0-FEW) Urine Opiates Screen Neg (NEG) Urine Methadone Screen Neg (NEG) Urine Barbiturates Neg (NEG) Urine Phencyclidine Screen Neg (NEG) Urine Amphetamine/Methamphetamine Neg (NEG) Urine Benzodiazepines Screen Neg (NEG) Urine Cocaine Screen Neg (NEG) Urine Cannabinoids Screen Neg (NEG) Urine Ethyl Alcohol Neg (NEG) Test 08/09/18 20:43 08/10/18 03:25 08/10/18 07:34 Glucose (Fingerstick) 171 mg/dL (70-99) 73 mg/dL (70-99) Sodium Level 144 mmol/L (136-145) Potassium Level 3.9 mmol/L (3.5-5.1) Chloride Level 111 mmol/L (98-107) Carbon Dioxide Level 22 mmol/L (21-32) Anion Gap 11 (6-14) Blood Urea Nitrogen 42 mg/dL (8-26) Creatinine 4.2 mg/dL (0.7-1.3) Estimated GFR (Cockcroft-Gault) 18.0 Glucose Level 116 mg/dL (70-99) Calcium Level 8.3 mg/dL (8.5-10.1) Magnesium Level 1.6 mg/dL (1.8-2.4) Results All relevant outside records, renal labs, imaging studies, telemetry/EKG's were reviewed. LEYDI IBARRA MD Aug 10, 2018 10:40
[2018-08-10 11:00] VITALS: BP 147/77
--- NOTE | 2018-08-10 12:24 | PDOC ---
PROGRESS NOTES Subjective Subjective Patient doing well, still with productive cough but improved. Almost to baseline as far as swelling goes. Still has some dependent edema. Denies any fever or chest pain Review of System CONSTITUTIONAL: No fever or chills CARDIOVASCULAR: No chest pain, syncope, palpitations RESPIRATORY: + SOB and cough GASTROINTESTINAL: No nausea, vomiting or abdominal pain NEUROLOGICAL: No headaches or weakness . Objective Objective Vital Signs Date Time Temp Pulse Resp B/P (MAP) Pulse Ox O2 Delivery O2 Flow Rate FiO2 08/10/18 12:09 95 Room Air 08/10/18 11:00 98.4 72 18 147/77 (100) 98.4 Intake and Output 08/10/18 07:00 Intake Total 960 ml Output Total 800 ml Balance 160 ml Intake Oral 960 ml Output Urine Total 800 ml # Voids 2 Physical Exam Physical Exam Physical Exam GEN.: No apparent distress. Alert and oriented. HEENT: Head is normocephalic, atraumatic LUNGS: Clear to auscultation. HEART: RRR, S1, S2 present. Peripheral pulses intact ABDOMEN: Soft, nontender. Positive bowel sounds. EXTREMITIES: Without any cyanosis. 1+ BLE edema NEUROLOGIC: Normal speech, normal tone PSYCHIATRIC: Normal affect, normal mood. Assessment Assessment Problems Medical Problems: (1) Anemia in chronic kidney disease (CKD) Status: Acute (2) CHF (congestive heart failure) Status: Acute (3) Community acquired pneumonia Status: Acute (4) Diabetes mellitus Status: Chronic (5) Extremity edema Status: Acute (6) Heart failure with preserved ejection fraction Status: Acute (7) Hypertensive urgency Status: Acute (8) Renal failure (ARF), acute on chronic Status: Acute Plan Plan of Care Assessment/Plan 53yo M hx of CKD Stage IV, HFpEF (diastolic heart failure), hypertension, Type II diabetes, hyperlipidemia presents with lower extremity swelling, found to have HTN urgency and acute on chronic renal failure. 1. Bilateral lower extremity edema: diurese, consult nephro to assist and monitor renal function, Lasix 40mg IV bid, plan to switch to po tomorrow 2. HTN urgency: place back on meds and diurese which should assist with lowering bp 3. Acute on chronic renal failure: resolved, nephro consulted, baseline eGFR approximately 20, followed by Dr. Heard as outpt 4. Acute on chronic diastolic heart failure: HFpEF, diurese, pt has f/u appt with Cards later this month, Dr. Spears 5. T2DM: levemir 25u qhs and regular insulin 7 units wm 6. HLD: cont statin 7. Anemia of chronic disease: possible iron infusion as outpt 8. CAP: cont Doxycycline, diagnosed at outside facility and started abx 08/03/18 FEN: Renal diet, replete lytes PPx: Heparin Dispo: admit, possible dc tomorrow if renal function stable and euvolemic Comment Review of Relevant I have reviewed the following items akanksha (where applicable) has been applied. Labs Laboratory Tests Test 08/09/18 01:37 08/09/18 07:52 08/09/18 11:15 08/09/18 15:45 White Blood Count 8.0 x10^3/uL (4.0-11.0) Red Blood Count 4.05 x10^6/uL (4.30-5.70) Hemoglobin 9.5 g/dL (13.0-17.5) Hematocrit 29.2 % (39.0-53.0) Mean Corpuscular Volume 72 fL (79-100) Mean Corpuscular Hemoglobin 23 pg (25-35) Mean Corpuscular Hemoglobin Concent 32 g/dL (31-37) Red Cell Distribution Width 17.6 % (11.5-14.5) Platelet Count 215 x10^3/uL (140-400) Neutrophils (%) (Auto) 77 % (31-73) Lymphocytes (%) (Auto) 15 % (24-48) Monocytes (%) (Auto) 6 % (0-9) Eosinophils (%) (Auto) 1 % (0-3) Basophils (%) (Auto) 1 % (0-3) Neutrophils # (Auto) 6.2 x10^3uL (1.8-7.7) Lymphocytes # (Auto) 1.2 x10^3/uL (1.0-4.8) Monocytes # (Auto) 0.5 x10^3/uL (0.0-1.1) Eosinophils # (Auto) 0.1 x10^3/uL (0.0-0.7) Basophils # (Auto) 0.0 x10^3/uL (0.0-0.2) Sodium Level 146 mmol/L (136-145) Potassium Level 4.1 mmol/L (3.5-5.1) Chloride Level 111 mmol/L (98-107) Carbon Dioxide Level 23 mmol/L (21-32) Anion Gap 12 (6-14) Blood Urea Nitrogen 48 mg/dL (8-26) Creatinine 4.1 mg/dL (0.7-1.3) Estimated GFR (Cockcroft-Gault) 18.5 BUN/Creatinine Ratio 12 (6-20) Glucose Level 152 mg/dL (70-99) Calcium Level 8.3 mg/dL (8.5-10.1) Total Bilirubin 0.4 mg/dL (0.2-1.0) Aspartate Amino Transf (AST/SGOT) 43 U/L (15-37) Alanine Aminotransferase (ALT/SGPT) 64 U/L (16-63) Alkaline Phosphatase 79 U/L (46-116) Troponin I Quantitative < 0.017 ng/mL (0.000-0.055) CV-Sao-N-Type Natriuretic Peptide 3248 pg/mL (0-124) Total Protein 7.1 g/dL (6.4-8.2) Albumin 3.1 g/dL (3.4-5.0) Albumin/Globulin Ratio 0.8 (1.0-1.7) Glucose (Fingerstick) 105 mg/dL (70-99) 124 mg/dL (70-99) Urine Collection Type Unknown Urine Color Yellow Urine Clarity Clear Urine pH 6.0 Urine Specific [place] 1.010 Urine Protein 100 mg/dL (NEG-TRACE) Urine Glucose (UA) Negative mg/dL (NEG) Urine Ketones (Stick) Negative mg/dL (NEG) Urine Blood Negative (NEG) Urine Nitrite Negative (NEG) Urine Bilirubin Negative (NEG) Urine Urobilinogen Dipstick 0.2 mg/dL (0.2 mg/dL) Urine Leukocyte Esterase Negative (NEG) Urine RBC 0 /HPF (0-2) Urine WBC 1-4 /HPF (0-4) Urine Squamous Epithelial Cells Occ /LPF Urine Bacteria 0 /HPF (0-FEW) Test 08/09/18 15:47 08/09/18 16:42 08/09/18 20:43 08/10/18 03:25 Urine Opiates Screen Neg (NEG) Urine Methadone Screen Neg (NEG) Urine Barbiturates Neg (NEG) Urine Phencyclidine Screen Neg (NEG) Urine Amphetamine/Methamphetamine Neg (NEG) Urine Benzodiazepines Screen Neg (NEG) Urine Cocaine Screen Neg (NEG) Urine Cannabinoids Screen Neg (NEG) Urine Ethyl Alcohol Neg (NEG) Glucose (Fingerstick) 171 mg/dL (70-99) 171 mg/dL (70-99) Sodium Level 144 mmol/L (136-145) Potassium Level 3.9 mmol/L (3.5-5.1) Chloride Level 111 mmol/L (98-107) Carbon Dioxide Level 22 mmol/L (21-32) Anion Gap 11 (6-14) Blood Urea Nitrogen 42 mg/dL (8-26) Creatinine 4.2 mg/dL (0.7-1.3) Estimated GFR (Cockcroft-Gault) 18.0 Glucose Level 116 mg/dL (70-99) Calcium Level 8.3 mg/dL (8.5-10.1) Magnesium Level 1.6 mg/dL (1.8-2.4) Test 08/10/18 07:34 08/10/18 11:41 Glucose (Fingerstick) 73 mg/dL (70-99) 155 mg/dL (70-99) Laboratory Tests Test 08/09/18 15:45 08/09/18 15:47 08/09/18 16:42 08/09/18 20:43 Urine Collection Type Unknown Urine Color Yellow Urine Clarity Clear Urine pH 6.0 Urine Specific [place] 1.010 Urine Protein 100 mg/dL (NEG-TRACE) Urine Glucose (UA) Negative mg/dL (NEG) Urine Ketones (Stick) Negative mg/dL (NEG) Urine Blood Negative (NEG) Urine Nitrite Negative (NEG) Urine Bilirubin Negative (NEG) Urine Urobilinogen Dipstick 0.2 mg/dL (0.2 mg/dL) Urine Leukocyte Esterase Negative (NEG) Urine RBC 0 /HPF (0-2) Urine WBC 1-4 /HPF (0-4) Urine Squamous Epithelial Cells Occ /LPF Urine Bacteria 0 /HPF (0-FEW) Urine Opiates Screen Neg (NEG) Urine Methadone Screen Neg (NEG) Urine Barbiturates Neg (NEG) Urine Phencyclidine Screen Neg (NEG) Urine Amphetamine/Methamphetamine Neg (NEG) Urine Benzodiazepines Screen Neg (NEG) Urine Cocaine Screen Neg (NEG) Urine Cannabinoids Screen Neg (NEG) Urine Ethyl Alcohol Neg (NEG) Glucose (Fingerstick) 171 mg/dL (70-99) 171 mg/dL (70-99) Test 08/10/18 03:25 08/10/18 07:34 08/10/18 11:41 Sodium Level 144 mmol/L (136-145) Potassium Level 3.9 mmol/L (3.5-5.1) Chloride Level 111 mmol/L (98-107) Carbon Dioxide Level 22 mmol/L (21-32) Anion Gap 11 (6-14) Blood Urea Nitrogen 42 mg/dL (8-26) Creatinine 4.2 mg/dL (0.7-1.3) Estimated GFR (Cockcroft-Gault) 18.0 Glucose Level 116 mg/dL (70-99) Calcium Level 8.3 mg/dL (8.5-10.1) Magnesium Level 1.6 mg/dL (1.8-2.4) Glucose (Fingerstick) 73 mg/dL (70-99) 155 mg/dL (70-99) Medications Current Medications Furosemide (Lasix) 40 mg 1X ONCE IVP Last administered on 08/09/18 03:42; Start 08/09/18 at 04:00; Stop 08/09/18 at 04:01; Status DC Amlodipine Besylate (Norvasc) 10 mg DAILY PO Last administered on 08/10/18at 09 :59; Start 08/09/18 at 09:00 Atorvastatin Calcium (Lipitor) 40 mg HS PO Last administered on 08/09/18at 20: 45; Start 08/09/18 at 21:00 Clonidine HCl (Catapres) 0.2 mg BID PO Last administered on 08/09/18at 22:23; Start 08/09/18 at 09:00 Furosemide (Lasix) 40 mg [id number] PO Last administered on 08/09/18 09:10; Start 08/09/18 at 09:00; Stop 08/09/18 at 13:38; Status DC Albuterol/ Ipratropium (Duoneb) 3 ml RTQID NEB Last administered on 08/10/18at 12:09; Start 08/09/18 at 08:00 Isosorbide Mononitrate (Imdur) 60 mg DAILY PO Last administered on 10/15/18at 09:58; Start 08/09/18 at 09:00 Non-Formulary Medication (Calcifediol (Rayaldee)) 300 mcg DAILY PO ; Start at 09:00; Stop 08/09/18 at 13:02; Status DC Carvedilol (Coreg) 25 mg BIDWMEALS PO Last administered on 08/10/18at 10:01; Start 08/09/18 at 08:00 Doxazosin Mesylate (Cardura) 8 mg QHS PO Last administered on 08/09/18at 20:47 ; Start 08/09/18 at 21:00 Doxycycline Hyclate (Vibra-Tab) 100 mg BID PO Last administered on 08/10/18 10:08; Start 08/09/18 at 09:00; Stop 08/13/18 at 21:01 Hydralazine HCl (Apresoline) 100 mg TID PO Last administered on 08/10/18at 10: 00; Start 08/09/18 at 09:00 Insulin Human Lispro (HumaLOG) 5 units TIDWMEALS SQ Last administered on at 18:01; Start 08/09/18 at 08:00 Insulin Glargine (Lantus) 30 units QHS SQ Last administered on 08/09/18at 20:51 ; Start 08/09/18 at 21:00; Stop 08/10/18 at 09:33; Status DC Furosemide (Lasix) 40 mg BID92 IVP Last administered on 08/10/18at 10:03; Start 08/09/18 at 14:00 Potassium Chloride (Klor-Con) 10 meq BID92 PO Last administered on 08/10/18at 10:01; Start 08/09/18 at 14:00 Acetaminophen/ Hydrocodone Bitart (Lortab 5/325) 1 tab BID PRN PO PAIN Last administered on 08/10/18at 09:56; Start 08/09/18 at 14:15 Heparin Sodium (Porcine) (Heparin Sodium) 5,000 unit Q8HRS SQ ; Start 08/09/18 at 22:00; Stop 08/10/18 at 11:22; Status DC Promethazine HCl/ Codeine (Phenergan With Codeine Oral Syrup) 5 ml PRN Q6HRS PRN PO COUGH 1ST COUGH Last administered on 08/10/18at 09:56; Start 08/09/18 at 23:30 Hydroxyzine Pamoate (Vistaril) 25 mg PRN QHS PRN PO ITCHING; Start 08/09/18 at 23:30 Magnesium Sulfate 50 ml @ 25 mls/hr 1X ONCE IV Last administered on at 10:06; Start 08/10/18 at 09:30; Stop 08/10/18 at 11:29; Status DC Insulin Glargine (Lantus) 25 units QHS SQ ; Start 08/10/18 at 21:00 Heparin Sodium (Porcine) (Heparin Sodium) 5,000 unit Q12HR SQ ; Start 08/10/18 at 21:00 Active Scripts Active Duoneb 0.5-3(2.5) Mg/3 Ml (Albuterol/Ipratropium) 3 Ml Ampul.neb 3 Ml NEB RTQID 30 Days Isosorbide Mononitrate Er (Isosorbide Mononitrate) 30 Mg Tab.er.24h 60 Mg PO DAILY 30 Days Hydralazine Hcl 50 Mg Tablet 100 Mg PO TID 30 Days Reported Rayaldee (Calcifediol) 30 Mcg Cap.sa.24h 300 Mcg PO DAILY Novolog Flexpen (Insulin Aspart) 100 Unit/1 Ml Insuln.pen 5 Unit SQ TIDAC Doxycycline Hyclate 100 Mg Capsule 1 Cap PO BID Clonidine Hcl 0.2 Mg Tablet 1 Tab PO BID Doxazosin Mesylate 8 Mg Tablet 8 Mg PO HS Lasix (Furosemide) 40 Mg Tablet 1 Tab PO BID Carvedilol 25 Mg Tablet 1 Tab PO BID Atorvastatin Calcium 40 Mg Tablet 40 Mg PO HS Norvasc (Amlodipine Besylate) 10 Mg Tablet 10 Mg PO DAILY Levemir (Insulin Detemir) 100 Unit/1 Ml Vial 30 Unit SQ HS Vitals/I & O Vital Sign - Last 24 Hours 08/09/18 08/09/18 08/09/18 08/09/18 13:54 15:02 15:37 17:58 Temp 98.6 98.6 Pulse 74 80 80 Resp 17 B/P (MAP) 132/62 159/74 (102) 159/74 Pulse Ox 90 O2 Delivery Room Air Room Air 08/09/18 08/09/18 08/09/18 08/09/18 19:00 19:45 19:51 20:46 Temp 98.7 98.7 Pulse 83 83 Resp 18 B/P (MAP) 148/73 (98) 148/73 Pulse Ox 90 93 O2 Delivery Room Air Room Air 08/09/18 08/09/18 08/09/18 08/09/18 20:47 20:48 21:49 22:23 Pulse 83 87 Resp 16 14 B/P (MAP) 148/73 165/83 Pulse Ox 93 93 O2 Delivery Room Air Room Air 08/09/18 08/10/18 08/10/18 08/10/18 23:00 03:00 07:00 07:43 Temp 98.1 97.9 96.8 98.1 97.9 96.8 Pulse 87 73 79 Resp 17 18 20 B/P (MAP) 165/83 (110) 141/68 (92) 159/78 (105) Pulse Ox 92 90 93 O2 Delivery Room Air Room Air Room Air Room Air 08/10/18 08/10/18 08/10/18 08/10/18 08:00 09:56 09:58 09:59 Pulse 79 79 Resp 16 B/P (MAP) 159/78 159/78 O2 Delivery Room Air Room Air 08/10/18 08/10/18 08/10/18 08/10/18 10:00 10:01 10:25 11:00 Temp 98.4 98.4 Pulse 79 79 79 72 Resp 18 B/P (MAP) 159/78 159/78 159/78 147/77 (100) Pulse Ox 92 O2 Delivery Room Air 08/10/18 12:09 Pulse Ox 95 O2 Delivery Room Air Intake and Output 08/09/18 08/09/18 08/10/18 15:00 23:00 07:00 Intake Total 960 ml Output Total 800 ml Balance 160 ml TERE SHINE MD Aug 10, 2018 12:24
[2018-08-10] MEDS ORDERED: INSULIN LISPRO 300 UNITS/3 ML INSULN.PEN. SQ SCH (12:30)
[2018-08-10 15:29] VITALS: BP 138/67
[2018-08-10 19:35] VITALS: BP 146/66
[2018-08-10] MEDS: ATORVASTATIN CALCIUM 40 MG TABLET. PO SCH (20:47)
[2018-08-10] MEDS: DOXAZOSIN MESYLATE 4 MG TABLET. PO SCH (20:48)
[2018-08-10] MEDS ORDERED: INSULIN GLARGINE 300 UNITS/3 ML INSULN.PEN. SQ SCH (21:00)
[2018-08-10 23:06] VITALS: BP 143/60
[2018-08-11 03:47] VITALS: BP 153/69
[2018-08-11 03:50] LABS: HEMATOCRIT 28.7 % (39.0-53.0); HEMOGLOBIN 9.2 g/dL (13.0-17.5); RED BLOOD COUNT 4.02 x10^6/uL (4.30-5.70); RED CELL DISTRIBUTION WIDTH 17.7 % (11.5-14.5); WHITE BLOOD COUNT 6.9 x10^3/uL (4.0-11.0)
[2018-08-11 04:13] LABS: CALCIUM 8.2 mg/dL (8.5-10.1); MAGNESIUM 1.9 mg/dL (1.8-2.4); POTASSIUM 3.8 mmol/L (3.5-5.1)
[2018-08-11 07:00] VITALS: BP 116/59
[2018-08-11] MEDS: IPRATRPIUM/ALBUTEROL 0.5/2.5MG 3 ML NEBU. NEB SCH ×3 (07:40→15:52)
[2018-08-11] MEDS: PROMETH/CODEINE 6.25/10MG 5 ML SYRUP. PO PRN ×2 (08:27→15:00)
[2018-08-11] MEDS: HYDROcodone/APAP 5/325MG 1 TAB TABLET PO PRN ×2 (08:28→15:00)
[2018-08-11] MEDS: POTASSIUM CHLORIDE 10 MEQ TABLET.ER. PO SCH ×2 (08:29→17:18)
[2018-08-11] MEDS: CARVEDILOL 12.5 MG TABLET. PO SCH ×2 (08:31→17:18)
[2018-08-11] MEDS: amLODIPine BESYLATE 10 MG TABLET PO SCH (08:32)
[2018-08-11] MEDS: cloNIDine HCL 0.2 MG TABLET PO SCH (08:41)
[2018-08-11] MEDS: HEPARIN for SUB-Q USE 5,000 UNIT/ML VIAL. SQ SCH (08:41)
[2018-08-11] MEDS: ISOSORBIDE MONONITRATE ER 30 MG TAB.ER.24H PO SCH (08:41)
[2018-08-11] MEDS: DOXYCYCLINE HYCLATE 100 MG TABLET PO SCH (08:41)
[2018-08-11] MEDS ORDERED: DOCUSATE SODIUM 100 MG CAPSULE. PO PRN (08:45)
[2018-08-11] MEDS: INSULIN LISPRO 300 UNITS/3 ML INSULN.PEN. SQ SCH ×3 (08:47→17:00)
[2018-08-11] MEDS ORDERED: LACTOBACILLUS RHAMNOSUS GG 1 CAPSULE. PO SCH (09:30)
[2018-08-11] MEDS ORDERED: POLYETHYLENE GLYCOL 3350 17 GM PACKET. PO SCH (09:30)
[2018-08-11] MEDS ORDERED: FUROSEMIDE 40 MG TABLET. PO SCH (09:30)
--- NOTE | 2018-08-11 11:12 | PDOC ---
PROGRESS NOTES Subjective Subjective Pt doing well, a little constipated, no fever or chills or shortness of breath. Productive cough. Swelling improved, compression stalkings help. Agreeable to going home today Review of System CONSTITUTIONAL: No fever or chills CARDIOVASCULAR: No chest pain, syncope, palpitations RESPIRATORY: + SOB and cough GASTROINTESTINAL: No nausea, vomiting or abdominal pain NEUROLOGICAL: No headaches or weakness Objective Objective Vital Signs Date Time Temp Pulse Resp B/P (MAP) Pulse Ox O2 Delivery O2 Flow Rate FiO2 08/11/18 09:28 96 Room Air 08/11/18 08:41 76 116/59 08/11/18 08:28 18 08/11/18 07:00 98.1 98.1 Intake and Output 08/11/18 07:00 Intake Total 2000 ml Output Total 1100 ml Balance 900 ml Intake Oral 2000 ml Output Urine Total 1100 ml # Voids 3 Physical Exam Physical Exam Physical Exam GEN.: No apparent distress. Alert and oriented. HEENT: Head is normocephalic, atraumatic LUNGS: Clear to auscultation. HEART: RRR, S1, S2 present. Peripheral pulses intact ABDOMEN: Soft, nontender. Positive bowel sounds. EXTREMITIES: Without any cyanosis. no LE edema NEUROLOGIC: Normal speech, normal tone PSYCHIATRIC: Normal affect, normal mood. Assessment Assessment Problems Medical Problems: (1) Anemia in chronic kidney disease (CKD) Status: Acute (2) CHF (congestive heart failure) Status: Acute (3) Community acquired pneumonia Status: Acute (4) Diabetes mellitus Status: Chronic (5) Extremity edema Status: Acute (6) Heart failure with preserved ejection fraction Status: Acute (7) Hypertensive urgency Status: Acute (8) Hypomagnesemia Status: Acute (9) Renal failure (ARF), acute on chronic Status: Acute Plan Plan of Care Assessment/Plan 53yo M hx of CKD Stage IV, HFpEF (diastolic heart failure), hypertension, Type II diabetes, hyperlipidemia presents with lower extremity swelling, found to have HTN urgency and acute on chronic renal failure. 1. Bilateral lower extremity edema: diurese, consult nephro to assist and monitor renal function, Lasix 40mg IV bid, plan to switch to po today 2. HTN urgency: place back on meds and diurese which should assist with lowering bp 3. Acute on chronic renal failure: resolved, nephro consulted, baseline eGFR approximately 20, followed by Dr. Heard as outpt, next appt 08/18 4. Acute on chronic diastolic heart failure: HFpEF, marciee, pt has f/u appt with Cards later this month, Dr. Spears 5. T2DM: levemir 25u qhs and regular insulin 7 units wm 6. HLD: cont statin 7. Anemia of chronic disease: stable, possible iron infusion before dc home today 8. CAP: cont Doxycycline, diagnosed at outside facility and started abx 08/03/18 FEN: Renal diet, replete lytes PPx: Heparin Dispo: anticipate dc today following completion of IV iron per Nephro Comment Review of Relevant I have reviewed the following items akanksha (where applicable) has been applied. Labs Laboratory Tests Test 08/09/18 11:15 08/09/18 15:45 08/09/18 15:47 08/09/18 16:42 Glucose (Fingerstick) 124 mg/dL (70-99) 171 mg/dL (70-99) Urine Collection Type Unknown Urine Color Yellow Urine Clarity Clear Urine pH 6.0 Urine Specific [place] 1.010 Urine Protein 100 mg/dL (NEG-TRACE) Urine Glucose (UA) Negative mg/dL (NEG) Urine Ketones (Stick) Negative mg/dL (NEG) Urine Blood Negative (NEG) Urine Nitrite Negative (NEG) Urine Bilirubin Negative (NEG) Urine Urobilinogen Dipstick 0.2 mg/dL (0.2 mg/dL) Urine Leukocyte Esterase Negative (NEG) Urine RBC 0 /HPF (0-2) Urine WBC 1-4 /HPF (0-4) Urine Squamous Epithelial Cells Occ /LPF Urine Bacteria 0 /HPF (0-FEW) Urine Opiates Screen Neg (NEG) Urine Methadone Screen Neg (NEG) Urine Barbiturates Neg (NEG) Urine Phencyclidine Screen Neg (NEG) Urine Amphetamine/Methamphetamine Neg (NEG) Urine Benzodiazepines Screen Neg (NEG) Urine Cocaine Screen Neg (NEG) Urine Cannabinoids Screen Neg (NEG) Urine Ethyl Alcohol Neg (NEG) Test 08/09/18 20:43 08/10/18 03:25 08/10/18 07:34 08/10/18 11:41 Glucose (Fingerstick) 171 mg/dL (70-99) 73 mg/dL (70-99) 155 mg/dL (70-99) Sodium Level 144 mmol/L (136-145) Potassium Level 3.9 mmol/L (3.5-5.1) Chloride Level 111 mmol/L (98-107) Carbon Dioxide Level 22 mmol/L (21-32) Anion Gap 11 (6-14) Blood Urea Nitrogen 42 mg/dL (8-26) Creatinine 4.2 mg/dL (0.7-1.3) Estimated GFR (Cockcroft-Gault) 18.0 Glucose Level 116 mg/dL (70-99) Calcium Level 8.3 mg/dL (8.5-10.1) Magnesium Level 1.6 mg/dL (1.8-2.4) Test 08/10/18 16:47 08/10/18 20:45 08/11/18 03:25 08/11/18 07:17 Glucose (Fingerstick) 97 mg/dL (70-99) 85 mg/dL (70-99) 123 mg/dL (70-99) White Blood Count 6.9 x10^3/uL (4.0-11.0) Red Blood Count 4.02 x10^6/uL (4.30-5.70) Hemoglobin 9.2 g/dL (13.0-17.5) Hematocrit 28.7 % (39.0-53.0) Mean Corpuscular Volume 72 fL (79-100) Mean Corpuscular Hemoglobin 23 pg (25-35) Mean Corpuscular Hemoglobin Concent 32 g/dL (31-37) Red Cell Distribution Width 17.7 % (11.5-14.5) Platelet Count 219 x10^3/uL (140-400) Sodium Level 143 mmol/L (136-145) Potassium Level 3.8 mmol/L (3.5-5.1) Chloride Level 108 mmol/L (98-107) Carbon Dioxide Level 22 mmol/L (21-32) Anion Gap 13 (6-14) Blood Urea Nitrogen 39 mg/dL (8-26) Creatinine 4.0 mg/dL (0.7-1.3) Estimated GFR (Cockcroft-Gault) 19.0 Glucose Level 139 mg/dL (70-99) Calcium Level 8.2 mg/dL (8.5-10.1) Magnesium Level 1.9 mg/dL (1.8-2.4) Laboratory Tests Test 08/10/18 11:41 08/10/18 16:47 08/10/18 20:45 08/11/18 03:25 Glucose (Fingerstick) 155 mg/dL (70-99) 97 mg/dL (70-99) 85 mg/dL (70-99) White Blood Count 6.9 x10^3/uL (4.0-11.0) Red Blood Count 4.02 x10^6/uL (4.30-5.70) Hemoglobin 9.2 g/dL (13.0-17.5) Hematocrit 28.7 % (39.0-53.0) Mean Corpuscular Volume 72 fL (79-100) Mean Corpuscular Hemoglobin 23 pg (25-35) Mean Corpuscular Hemoglobin Concent 32 g/dL (31-37) Red Cell Distribution Width 17.7 % (11.5-14.5) Platelet Count 219 x10^3/uL (140-400) Sodium Level 143 mmol/L (136-145) Potassium Level 3.8 mmol/L (3.5-5.1) Chloride Level 108 mmol/L (98-107) Carbon Dioxide Level 22 mmol/L (21-32) Anion Gap 13 (6-14) Blood Urea Nitrogen 39 mg/dL (8-26) Creatinine 4.0 mg/dL (0.7-1.3) Estimated GFR (Cockcroft-Gault) 19.0 Glucose Level 139 mg/dL (70-99) Calcium Level 8.2 mg/dL (8.5-10.1) Magnesium Level 1.9 mg/dL (1.8-2.4) Test 08/11/18 07:17 Glucose (Fingerstick) 123 mg/dL (70-99) Medications Current Medications Furosemide (Lasix) 40 mg 1X ONCE IVP Last administered on 08/09/18at 03:42; Start 08/09/18 at 04:00; Stop 08/09/18 at 04:01; Status DC Amlodipine Besylate (Norvasc) 10 mg DAILY PO Last administered on 08/11/18at 08 :32; Start 08/09/18 at 09:00 Atorvastatin Calcium (Lipitor) 40 mg HS PO Last administered on 08/10/18at 20: 47; Start 08/09/18 at 21:00 Clonidine HCl (Catapres) 0.2 mg BID PO Last administered on 08/10/18at 20:49; Start 08/09/18 at 09:00 Furosemide (Lasix) 40 mg [id number] PO Last administered on 08/09/18at 09:10; Start 08/09/18 at 09:00; Stop 08/09/18 at 13:38; Status DC Albuterol/ Ipratropium (Duoneb) 3 ml RTQID NEB Last administered on 08/11/18at 07:40; Start 08/09/18 at 08:00 Isosorbide Mononitrate (Imdur) 60 mg DAILY PO Last administered on 08/11/18 08:41; Start 08/09/18 at 09:00 Non-Formulary Medication (Calcifediol (Rayaldee)) 300 mcg DAILY PO ; Start at 09:00; Stop 08/09/18 at 13:02; Status DC Carvedilol (Coreg) 25 mg BIDWMEALS PO Last administered on 08/11/18at 08:31; Start 08/09/18 at 08:00 Doxazosin Mesylate (Cardura) 8 mg QHS PO Last administered on 08/10/18 20:48 ; Start 08/09/18 at 21:00 Doxycycline Hyclate (Vibra-Tab) 100 mg BID PO Last administered on 08/11/18 08:41; Start 08/09/18 at 09:00; Stop 08/13/18 at 21:01 Hydralazine HCl (Apresoline) 100 mg TID PO Last administered on 08/11/18at 08: 29; Start 08/09/18 at 09:00 Insulin Human Lispro (HumaLOG) 5 units TIDWMEALS SQ Last administered on at 18:01; Start 08/09/18 at 08:00; Stop 08/10/18 at 12:36; Status DC Insulin Glargine (Lantus) 30 units QHS SQ Last administered on 08/09/18at 20:51 ; Start 08/09/18 at 21:00; Stop 08/10/18 at 09:33; Status DC Furosemide (Lasix) 40 mg BID92 IVP Last administered on 08/10/18at 15:42; Start 08/09/18 at 14:00; Stop 08/11/18 at 08:37; Status DC Potassium Chloride (Klor-Con) 10 meq BID92 PO Last administered on 08/11/18at 08:29; Start 08/09/18 at 14:00 Acetaminophen/ Hydrocodone Bitart (Lortab 5/325) 1 tab BID PRN PO PAIN Last administered on 08/11/18 08:28; Start 08/09/18 at 14:15 Heparin Sodium (Porcine) (Heparin Sodium) 5,000 unit Q8HRS SQ ; Start 08/09/18 at 22:00; Stop 08/10/18 at 11:22; Status DC Promethazine HCl/ Codeine (Phenergan With Codeine Oral Syrup) 5 ml PRN Q6HRS PRN PO COUGH 1ST COUGH Last administered on 08/11/18at 08:27; Start 08/09/18 at 23:30 Hydroxyzine Pamoate (Vistaril) 25 mg PRN QHS PRN PO ITCHING; Start 08/09/18 at 23:30 Magnesium Sulfate 50 ml @ 25 mls/hr 1X ONCE IV Last administered on at 10:06; Start 08/10/18 at 09:30; Stop 08/10/18 at 11:29; Status DC Insulin Glargine (Lantus) 25 units QHS SQ ; Start 08/10/18 at 21:00 Heparin Sodium (Porcine) (Heparin Sodium) 5,000 unit Q12HR SQ ; Start 08/10/18 at 21:00 Insulin Human Lispro (HumaLOG) 7 units TIDWMEALS SQ Last administered on at 08:47; Start 08/10/18 at 13:00 Insulin Human Lispro (HumaLOG) 7 units TIDAC SQ ; Start 08/10/18 at 12:30; Status UNV Polyethylene Glycol (miraLAX PACKET) 17 gm DAILY PO Last administered on at 10:34; Start 08/11/18 at 09:30 Docusate Sodium (Colace) 100 mg PRN DAILY PRN PO HARD STOOLS Last administered on 08/11/18at 10:33; Start 08/11/18 at 08:45 Furosemide (Lasix) 40 mg BID PO Last administered on 08/11/18at 10:33; Start 08/11/18 at 09:30 Lactobacillus Rhamnosus (Culturelle) 1 cap BID PO Last administered on at 10:33; Start 08/11/18 at 09:30 Active Scripts Active Duoneb 0.5-3(2.5) Mg/3 Ml (Albuterol/Ipratropium) 3 Ml Ampul.neb 3 Ml NEB RTQID 30 Days Isosorbide Mononitrate Er (Isosorbide Mononitrate) 30 Mg Tab.er.24h 60 Mg PO DAILY 30 Days Hydralazine Hcl 50 Mg Tablet 100 Mg PO TID 30 Days Reported Rayaldee (Calcifediol) 30 Mcg Cap.sa.24h 300 Mcg PO DAILY Novolog Flexpen (Insulin Aspart) 100 Unit/1 Ml Insuln.pen 5 Unit SQ TIDAC Doxycycline Hyclate 100 Mg Capsule 1 Cap PO BID Clonidine Hcl 0.2 Mg Tablet 1 Tab PO BID Doxazosin Mesylate 8 Mg Tablet 8 Mg PO HS Lasix (Furosemide) 40 Mg Tablet 1 Tab PO BID Carvedilol 25 Mg Tablet 1 Tab PO BID Atorvastatin Calcium 40 Mg Tablet 40 Mg PO HS Norvasc (Amlodipine Besylate) 10 Mg Tablet 10 Mg PO DAILY Levemir (Insulin Detemir) 100 Unit/1 Ml Vial 30 Unit SQ HS Vitals/I & O Vital Sign - Last 24 Hours 08/10/18 08/10/18 08/10/18 08/10/18 12:09 15:27 15:29 15:42 Temp 98.0 98.0 Pulse 77 77 Resp 18 B/P (MAP) 138/67 (90) 138/67 Pulse Ox 95 92 93 O2 Delivery Room Air Room Air Room Air 08/10/18 08/10/18 08/10/18 08/10/18 17:57 19:35 19:39 20:00 Temp 97.5 97.5 Pulse 77 76 Resp 16 B/P (MAP) 138/67 146/66 (92) Pulse Ox 92 95 O2 Delivery Room Air Room Air Room Air 08/10/18 08/10/18 08/10/18 08/10/18 20:48 20:48 20:49 22:38 Pulse 76 76 76 Resp 16 B/P (MAP) 146/66 146/66 146/66 Pulse Ox 95 O2 Delivery Room Air 08/10/18 08/10/18 08/11/18 08/11/18 23:06 23:37 03:47 07:00 Temp 97.7 98.6 98.1 97.7 98.6 98.1 Pulse 79 75 76 Resp 16 16 18 B/P (MAP) 143/60 (87) 153/69 (97) 116/59 (78) Pulse Ox 92 92 92 O2 Delivery Room Air Room Air Room Air 08/11/18 08/11/18 08/11/18 08/11/18 07:41 08:00 08:28 08:29 Pulse 76 Resp 18 B/P (MAP) 116/59 Pulse Ox 96 O2 Delivery Room Air Room Air Room Air 08/11/18 08/11/18 08/11/18 08/11/18 08:31 08:32 08:41 09:28 Pulse 76 76 76 B/P (MAP) 116/59 116/59 116/59 Pulse Ox 96 O2 Delivery Room Air Intake and Output 08/10/18 08/10/18 08/11/18 15:00 23:00 07:00 Intake Total 1200 ml 800 ml Output Total 1100 ml Balance 1200 ml -300 ml TERE SHINE MD Aug 11, 2018 11:12
--- NOTE | 2018-08-11 11:19 | PDOC ---
SUBJECTIVE ROS Pt states he is feeling better , LE edema Improved . Good UOP He states he called our Office yesterday and Teri(LPN0 told him he should get IV Fe While he is in the Hospital OBJECTIVE Vital Signs Vital Signs Date Time Temp Pulse Resp B/P (MAP) Pulse Ox O2 Delivery O2 Flow Rate FiO2 08/11/18 09:28 96 Room Air 08/11/18 08:41 76 116/59 08/11/18 08:28 18 08/11/18 07:00 98.1 98.1 I & 0 Intake and Output 08/11/18 07:00 Intake Total 2000 ml Output Total 1100 ml Balance 900 ml Intake Oral 2000 ml Output Urine Total 1100 ml # Voids 3 PHYSICAL EXAM Physical Exam GENERAL : NAD conversant, appropriate. HEENT: Clear. NECK: No increased JVD. LUNGS: Clear, Non labored CARDIAC: Without S3 or rub. ABDOMEN: Obese, bowel sounds are present. Nontender. EXTREMITIES: Bilateral lower extremity edema of 2+ pitting. NEUROLOGIC: Nonfocal localizing. - No Cardenas DIAGNOSIS/ASSESSMENT Assessment & Plan Chronic kidney disease stage 4, likely secondary to diabetes mellitus Follows with Dr. Beckford Creatinine at his Baseline (on IV Diuretics), switched to PO today No uremic Symptoms or Signs, No Emergent Indication for HD, Edema/ CMP - Switched to PO He is also on Hydralazine and amlodipine renal function stable He Has appt with Dr. Beckford on 08/18 Hypertension- On multiple meds Anemia - as per Pt told by [employer]UCATION TEACHER at our office to get IV Fe Most recent TSat April 2018 - 5% Iron studies done today Tsat 10%, [facility] [employer] following the pt- Plan to Give IV FE if Indicated after seeing him at his OP appt Discussed with Pt and RN, can be dced from Renal standpoint , follow up with Dr. beckford COMMENT/RELEVANT DATA Meds Current Medications Medications (Trade) Dose Ordered Sig/Adam Start Time Stop Time Status Last Admin Dose Admin Acetaminophen/ Hydrocodone Bitart (Lortab 5/325) 1 tab BID PRN 08/09/18 14:15 08/11/18 08:28 1 TAB Albuterol/ Ipratropium (Duoneb) 3 ml RTQID 08/09/18 08:00 08/11/18 07:40 3 ML Amlodipine Besylate (Norvasc) 10 mg DAILY 08/09/18 09:00 08/11/18 08:32 10 MG Atorvastatin Calcium (Lipitor) 40 mg HS 08/09/18 21:00 08/10/18 20:47 40 MG Carvedilol (Coreg) 25 mg BIDWMEALS 08/09/18 08:00 08/11/18 08:31 25 MG Clonidine HCl (Catapres) 0.2 mg BID 08/09/18 09:00 08/10/18 20:49 0.2 MG Docusate Sodium (Colace) 100 mg PRN DAILY PRN 08/11/18 08:45 08/11/18 10:33 100 MG Doxazosin Mesylate (Cardura) 8 mg QHS 08/09/18 21:00 08/10/18 20:48 8 MG Doxycycline Hyclate (Vibra-Tab) 100 mg BID 08/09/18 09:00 08/13/18 21:01 08/11/18 08:41 100 MG Furosemide (Lasix) 40 mg BID 08/11/18 09:30 08/11/18 10:33 40 MG Heparin Sodium (Porcine) (Heparin Sodium) 5,000 unit Q12HR 08/10/18 21:00 Hydralazine HCl (Apresoline) 100 mg TID 08/09/18 09:00 08/11/18 08:29 100 MG Hydroxyzine Pamoate (Vistaril) 25 mg PRN QHS PRN 08/09/18 23:30 Insulin Glargine (Lantus) 25 units QHS 08/10/18 21:00 Insulin Human Lispro (HumaLOG) 7 units TIDAC 08/10/18 12:30 UNV Isosorbide Mononitrate (Imdur) 60 mg DAILY 08/09/18 09:00 08/11/18 08:41 60 MG Lactobacillus Rhamnosus (Culturelle) 1 cap BID 08/11/18 09:30 08/11/18 10:33 1 CAP Magnesium Sulfate 50 ml @ 25 mls/hr 1X ONCE 08/10/18 09:30 08/10/18 11:29 DC 08/10/18 10:06 25 MLS/HR Non-Formulary Medication (Calcifediol (Rayaldee)) 300 mcg DAILY 08/09/18 09:00 08/09/18 13:02 DC Polyethylene Glycol (miraLAX PACKET) 17 gm DAILY 08/11/18 09:30 08/11/18 10:34 17 GM Potassium Chloride (Klor-Con) 10 meq BID92 08/09/18 14:00 08/11/18 08:29 10 MEQ Promethazine HCl/ Codeine (Phenergan With Codeine Oral Syrup) 5 ml PRN Q6HRS PRN 08/09/18 23:30 08/11/18 08:27 5 ML Lab Laboratory Tests Test 08/10/18 11:41 08/10/18 16:47 08/10/18 20:45 08/11/18 03:25 Glucose (Fingerstick) 155 mg/dL (70-99) 97 mg/dL (70-99) 85 mg/dL (70-99) White Blood Count 6.9 x10^3/uL (4.0-11.0) Red Blood Count 4.02 x10^6/uL (4.30-5.70) Hemoglobin 9.2 g/dL (13.0-17.5) Hematocrit 28.7 % (39.0-53.0) Mean Corpuscular Volume 72 fL (79-100) Mean Corpuscular Hemoglobin 23 pg (25-35) Mean Corpuscular Hemoglobin Concent 32 g/dL (31-37) Red Cell Distribution Width 17.7 % (11.5-14.5) Platelet Count 219 x10^3/uL (140-400) Sodium Level 143 mmol/L (136-145) Potassium Level 3.8 mmol/L (3.5-5.1) Chloride Level 108 mmol/L (98-107) Carbon Dioxide Level 22 mmol/L (21-32) Anion Gap 13 (6-14) Blood Urea Nitrogen 39 mg/dL (8-26) Creatinine 4.0 mg/dL (0.7-1.3) Estimated GFR (Cockcroft-Gault) 19.0 Glucose Level 139 mg/dL (70-99) Calcium Level 8.2 mg/dL (8.5-10.1) Magnesium Level 1.9 mg/dL (1.8-2.4) Test 08/11/18 07:17 Glucose (Fingerstick) 123 mg/dL (70-99) Results All relevant outside records, renal labs, imaging studies, telemetry/EKG's were reviewed. LEYDI IBARRA MD Aug 11, 2018 11:19
[2018-08-11 11:21] VITALS: BP 138/74
--- NOTE | 2018-08-11 13:11 | DISCH ---
DISCHARGE INSTRUCTIONS Condition on Discharge Condition on Discharge: Stable Activity After Discharge Activity Instructions for Disc: Activity as tolerated Exercise Instruction after Dis: Progress as tolerated Weight Bearing Status after Di: No restrictions Diet after Discharge Diet after Discharge: Low Potassium, Renal Non-Dialysis, No Added Salt, Diabetic No Calorie Level, Low Sodium 2 gm Diet Texture: Regular Swallowing Supervision: None needed Wound Incision Care Wound/Incision Care: No wound care needed Checks after Discharge Checks after discharge: Check blood press - daily, Check blood sugar, ac/hs, Weigh Yourself Daily Contacting the [facility] after DC Call your doctor for: If your condition worsens Follow-Up Follow up with: Dr. Logan Ricketts @ [facility] Tuesday 08/14 @ 1:15pm TERE RICKETTS MD Aug 11, 2018 13:11
[2018-08-11] MEDS ORDERED: INSU100I13 SQ (13:16)
[2018-08-11] MEDS ORDERED: INSU100I11 SQ (13:16)
[2018-08-11] MEDS ORDERED: FURO-68 PO (13:16)
[2018-08-11 15:30] VITALS: BP 150/69
--- NOTE | 2018-08-11 17:02 | PDOC3 ---
Discharge Summary Visit Information Date of Admission: Aug 09, 2018 Date of Discharge: Aug 11, 2018 Admitting Diagnosis: Peripheral edema, acute kidney injury, pneumonia Final Diagnosis Problems Medical Problems: (1) Anemia in chronic kidney disease (CKD) Status: Acute (2) CHF (congestive heart failure) Status: Acute (3) Community acquired pneumonia Status: Acute (4) Diabetes mellitus Status: Chronic (5) Extremity edema Status: Acute (6) Heart failure with preserved ejection fraction Status: Acute (7) Hypertensive urgency Status: Acute (8) Hypomagnesemia Status: Acute (9) Renal failure (ARF), acute on chronic Status: Acute Brief Hospital Course Allergies Allergies Coded Allergies Type Severity Reaction Last Updated Verified No Known Drug Allergies 03/20/16 No Vital Signs Vital Signs Date Time Temp Pulse Resp B/P (MAP) Pulse Ox O2 Delivery O2 Flow Rate FiO2 08/11/18 15:30 98.0 74 18 150/69 (96) 92 Room Air 98.0 Lab Results Laboratory Tests Test 08/09/18 20:43 08/10/18 03:25 08/10/18 07:34 08/10/18 11:41 Glucose (Fingerstick) 171 mg/dL (70-99) 73 mg/dL (70-99) 155 mg/dL (70-99) Sodium Level 144 mmol/L (136-145) Potassium Level 3.9 mmol/L (3.5-5.1) Chloride Level 111 mmol/L (98-107) Carbon Dioxide Level 22 mmol/L (21-32) Anion Gap 11 (6-14) Blood Urea Nitrogen 42 mg/dL (8-26) Creatinine 4.2 mg/dL (0.7-1.3) Estimated GFR (Cockcroft-Gault) 18.0 Glucose Level 116 mg/dL (70-99) Calcium Level 8.3 mg/dL (8.5-10.1) Magnesium Level 1.6 mg/dL (1.8-2.4) Test 08/10/18 16:47 08/10/18 20:45 08/11/18 03:25 08/11/18 07:17 Glucose (Fingerstick) 97 mg/dL (70-99) 85 mg/dL (70-99) 123 mg/dL (70-99) White Blood Count 6.9 x10^3/uL (4.0-11.0) Red Blood Count 4.02 x10^6/uL (4.30-5.70) Hemoglobin 9.2 g/dL (13.0-17.5) Hematocrit 28.7 % (39.0-53.0) Mean Corpuscular Volume 72 fL (79-100) Mean Corpuscular Hemoglobin 23 pg (25-35) Mean Corpuscular Hemoglobin Concent 32 g/dL (31-37) Red Cell Distribution Width 17.7 % (11.5-14.5) Platelet Count 219 x10^3/uL (140-400) Sodium Level 143 mmol/L (136-145) Potassium Level 3.8 mmol/L (3.5-5.1) Chloride Level 108 mmol/L (98-107) Carbon Dioxide Level 22 mmol/L (21-32) Anion Gap 13 (6-14) Blood Urea Nitrogen 39 mg/dL (8-26) Creatinine 4.0 mg/dL (0.7-1.3) Estimated GFR (Cockcroft-Gault) 19.0 Glucose Level 139 mg/dL (70-99) Calcium Level 8.2 mg/dL (8.5-10.1) Magnesium Level 1.9 mg/dL (1.8-2.4) Iron Level 24 ug/dL (65-175) Total Iron Binding Capacity 239 ug/dL (250-450) Iron Saturation 10 % (15-34) Test 08/11/18 10:43 08/11/18 14:28 08/11/18 15:25 08/11/18 16:29 Glucose (Fingerstick) 142 mg/dL (70-99) 46 mg/dL (70-99) 114 mg/dL (70-99) 171 mg/dL (70-99) Laboratory Tests Test 08/10/18 20:45 08/11/18 03:25 08/11/18 07:17 08/11/18 10:43 Glucose (Fingerstick) 85 mg/dL (70-99) 123 mg/dL (70-99) 142 mg/dL (70-99) White Blood Count 6.9 x10^3/uL (4.0-11.0) Red Blood Count 4.02 x10^6/uL (4.30-5.70) Hemoglobin 9.2 g/dL (13.0-17.5) Hematocrit 28.7 % (39.0-53.0) Mean Corpuscular Volume 72 fL (79-100) Mean Corpuscular Hemoglobin 23 pg (25-35) Mean Corpuscular Hemoglobin Concent 32 g/dL (31-37) Red Cell Distribution Width 17.7 % (11.5-14.5) Platelet Count 219 x10^3/uL (140-400) Sodium Level 143 mmol/L (136-145) Potassium Level 3.8 mmol/L (3.5-5.1) Chloride Level 108 mmol/L (98-107) Carbon Dioxide Level 22 mmol/L (21-32) Anion Gap 13 (6-14) Blood Urea Nitrogen 39 mg/dL (8-26) Creatinine 4.0 mg/dL (0.7-1.3) Estimated GFR (Cockcroft-Gault) 19.0 Glucose Level 139 mg/dL (70-99) Calcium Level 8.2 mg/dL (8.5-10.1) Magnesium Level 1.9 mg/dL (1.8-2.4) Iron Level 24 ug/dL (65-175) Total Iron Binding Capacity 239 ug/dL (250-450) Iron Saturation 10 % (15-34) Test 08/11/18 14:28 08/11/18 15:25 08/11/18 16:29 Glucose (Fingerstick) 46 mg/dL (70-99) 114 mg/dL (70-99) 171 mg/dL (70-99) Brief Hospital Course 53yo M hx of CKD Stage IV, HFpEF (diastolic heart failure), hypertension, Type II diabetes, hyperlipidemia presents with lower extremity swelling, found to have HTN urgency and acute on chronic renal failure. 1. Bilateral lower extremity edema: resolved by diuresis of Lasix 40mg IV bid with stable renal function, consulted nephro to assist and monitor renal function, discharged on Lasix 40mg po bid, f/u with Dr. Heard Aug 18 2. HTN urgency: resolved, placed back on meds and diuresed 3. Acute on chronic renal failure: nephro consulted, baseline eGFR approximately 20, followed by Dr. Heard as outpt 4. Acute on chronic diastolic heart failure: resolved, HFpEF, diuresed, pt has f /u appt with [facility] later this month, Dr. Spears 5. T2DM: lowered levemir from 30u qhs to 25units qhs and increased regular insulin from 5 units wm to 7 units wm 6. HLD: cont statin 7. Anemia of chronic disease: possible iron infusion as outpt 8. CAP: completed doxycycline while inpt, started at outside facility 08/03/18 Patient to f/u with pcp, [facility]. Tere Shine at [facility] Friday08/14/18 @ 1:15pm Discharge Information Condition at Discharge: Stable Follow Up: Weeks Disposition/Orders: D/C to Home Scheduled Amlodipine Besylate (Norvasc) 10 Mg Tablet, 10 MG PO DAILY, (Reported) Entered as Reported by: ROSIO ANDERSEN on 03/16/16 1602 Last Action: Continued on 08/09/18640 by BOBBY BOYD Atorvastatin Calcium (Atorvastatin Calcium) 40 Mg Tablet, 40 MG PO HS for FOR CHOLESTEROL, #30 Ref 0 (Reported) Entered as Reported by: JOHN WARE on 06/13/17 1112 Last Action: Continued on 08/09/18640 by BOBBY BOYD Calcifediol (Rayaldee) 30 Mcg Cap.sa.24h, 300 MCG PO DAILY, (Reported) Entered as Reported by: BOBBY BOYD on 08/09/18639 Last Taken: UNKNOWN on Unknown Date & Time Last Action: Converted on 641 by BOBBY BOYD Carvedilol (Carvedilol) 25 Mg Tablet, 1 TAB PO BID, #180 Ref 1 (Reported) Entered as Reported by: JOHN WARE on 06/13/17 1112 Last Action: Converted on 08/09/18641 by BOBBY BOYD Clonidine Hcl (Clonidine Hcl) 0.2 Mg Tablet, 1 TAB PO BID, #60 Ref 5 (Reported) Entered as Reported by: BOBBY BOYD on 08/09/18639 Last Taken: UNKNOWN on Unknown Date & Time Last Action: Continued on 640 by BOBBY BOYD Doxazosin Mesylate (Doxazosin Mesylate) 8 Mg Tablet, 8 MG PO HS, (Reported) Entered as Reported by: MARYCHUY LAWSON on 04/23/18 0647 Last Action: Converted on 08/09/18641 by BOBBY BOYD Furosemide (Lasix) 40 Mg Tablet, 1 TAB PO BID, #60 Ref 2 Prescribed by: TERE SHINE MD on 08/11/18 1316 Hydralazine Hcl (Hydralazine Hcl) 50 Mg Tablet, 100 MG PO TID for 30 Days, #180 Prescribed by: TERE SHINE MD on 06/17/17 1215 Last Action: Converted on 08/09/18641 by BOBBY BOYD Insulin Glargine,Hum.rec.anlog (Lantus Solostar) 100 Unit/1 Ml Insuln.pen, 25 UNITS SQ QHS for 30 Days, #750 Ref 2 Prescribed by: TERE SHINE MD on 08/11/18 1316 Insulin Lispro (Humalog) 100 Unit/1 Ml Insuln.pen, 7 UNITS SQ TIDWMEALS for 30 Days, #630 Ref 2 Prescribed by: TERE SHINE MD on 08/11/18 1316 Isosorbide Mononitrate (Isosorbide Mononitrate Er) 30 Mg Tab.er.24h, 60 MG PO DAILY for 30 Days, #60 Prescribed by: TERE SHINE MD on 06/17/17 1215 Last Action: Continued on 08/09/18640 by BOBBY BOYD Discontinued Medications Aspirin (Aspirin) 81 Mg Tab.chew, 1 TAB PO DAILY, #90 Ref 3 (Reported) Entered as Reported by: MARYCHUY LAWSON on 04/23/18646 Last Action: Discontinued on 08/09/18639 by BOBBY BOYD Calcitriol (Calcitriol) 0.25 Mcg Capsule, 1 CAP PO DAILY, #90 Ref 3 (Reported) Entered as Reported by: MARYCHUY LAWSON on 04/23/18646 Last Action: Discontinued on 08/09/18639 by BOBBY BOYD Doxycycline Hyclate (Doxycycline Hyclate) 100 Mg Capsule, 1 CAP PO BID, #14 ( Reported) Entered as Reported by: BOBBY BOYD on 08/09/18639 Last Taken: UNKNOWN on Unknown Date & Time Last Action: Converted on 641 by BOBBY BOYD Ferrous Sulfate (Ferrous Sulfate) 325 Mg Tablet, 1 TAB PO BID, #30 Ref 3 ( Reported) Entered as Reported by: MARYCHUY LAWSON on 04/23/18646 Last Action: Discontinued on 08/09/18639 by BOBBY BOYD Insulin Aspart (Novolog Flexpen) 100 Unit/1 Ml Insuln.pen, 5 UNIT SQ TIDAC, ( Reported) Entered as Reported by: BOBBY BOYD on 08/09/18639 Last Taken: UNKNOWN on Unknown Date & Time Last Action: Converted on 641 by BOBBY BOYD Insulin Detemir (Levemir) 100 Unit/1 Ml Vial, 30 UNIT SQ HS, (Reported) Entered as Reported by: ROSIO ANDERSEN on 03/16/16 1602 Last Action: Converted on 08/09/18641 by BOBBY BOYD Ipratropium/Albuterol Sulfate (Duoneb 0.5-3(2.5) Mg/3 Ml) 3 Ml Ampul.neb, 3 ML NEB RTQID for 30 Days, #120 Prescribed by: CHOLO KITCHEN MD on 05/01/18 1604 Last Action: Continued on 08/09/18 06 by TERE DEE MD Aug 11, 2018 17:01
[2018-08-11 17:18] VITALS: BP 150/69
== END 2018-08-11 15:30 | disposition home or self-care (01) | DRG 682 ==
LOC: ER 01:05 → 5 SOUTH 04:18 → EEVIPCON 04:18
PROVIDERS: ADMIT Family Medicine; ATTEND Family Medicine
DX: N17.9 Acute kidney failure, unspecified (principal); I50.43 Acute on chronic combined systolic (congestive) and diastolic (congestive) heart failure; J18.9 Pneumonia, unspecified organism; I13.0 Hypertensive heart and chronic kidney disease with heart failure and stage 1 through stage 4 chronic kidney disease, or unspecified chronic kidney disease; I42.0 Dilated cardiomyopathy; D63.1 Anemia in chronic kidney disease; E11.22 Type 2 diabetes mellitus with diabetic chronic kidney disease; E78.00 Pure hypercholesterolemia, unspecified; E78.5 Hyperlipidemia, unspecified; E83.42 Hypomagnesemia; I16.0 Hypertensive urgency; I25.10 Atherosclerotic heart disease of native coronary artery without angina pectoris; N18.4 Chronic kidney disease, stage 4 (severe); Z79.4 Long term (current) use of insulin; Z82.49 Family history of ischemic heart disease and other diseases of the circulatory system; Z83.3 Family history of diabetes mellitus; Z85.038 Personal history of other malignant neoplasm of large intestine; I25.2 Old myocardial infarction; Z90.49 Acquired absence of other specified parts of digestive tract
CPT/HCPCS: 36415; 71045; 80048; 80053; 80307; 81001; 82962; 83540; 83550; 83735; 83880; 84484; 85025; 85027; 93005; 94640; 96374; J1815; J1940; J3475; J7620; 99285-25; G0479

== ENCOUNTER → 2018-08-18 | Outpatient (CLI) | payer OTHER ==
[2018-08-11 17:18] VITALS: BP 150/69
[~2018-08-18] MED LIST changes: +CALC30CA PO; +DOXY100C2 PO; +INSU100I11 SQ; +INSU100I13 SQ; +INSU100I17 SQ
--- NOTE | 2018-08-18 15:02 | CARD ---
MR#: [id number] Date of Study: 08/18/2018 Ordering Physician: SUKUMAR STANLEY, Referring Physician: SUKUMAR STANLEY, Tech: Rosalva Avila APPROVED REPORT EXAM: Two-dimensional and M-mode echocardiogram with Doppler and color Doppler. Other Information Quality : AverageHR: 76bpm Rhythm : NSR INDICATION Diastolic Heart Failure RISK FACTORS Hypertension Hyperlipidemia Diabetes 2D DIMENSIONS RVDd3.1 (2.9-3.5cm)Left Atrium(2D)3.8 (1.6-4.0cm) IVSd1.0 (0.7-1.1cm)Aortic Root(2D)3.0 (2.0-3.7cm) LVDd6.1 (3.9-5.9cm)LVOT Diameter2.0 (1.8-2.4cm) PWd1.3 (0.7-1.1cm)LVDs3.4 (2.5-4.0cm) FS (%) 43.6 %SV135.8 ml LVEF(%)74.0 (>50%) Aortic Valve AoV Peak Sin.151.7cm/sAoV VTI32.9cm AO Peak GR.9.2mmHgLVOT Peak Sin.115.8cm/s AO Mean GR.5mmHgAVA (VMAX)2.50cm2 Mitral Valve MV E Avbaayyr16.2cm/sMV DECEL [id number] MV A Scbfnsub77.2cm/sE/A Ratio1.1 Tricuspid Valve TR P. [id number]/sRAP [id number] TR Peak Gr.[id number] LEFT VENTRICLE The left ventricle is normal size. There is borderline concentric left ventricular hypertrophy. The l eft ventricular systolic function is normal and the ejection fraction is within normal range. The Eje ction Fraction is 60-65%. There is normal LV segmental wall motion. Tissue Doppler imaging reveals mi ld left ventricular diastolic dysfunction. RIGHT VENTRICLE The right ventricle is normal size. There is normal right ventricular wall thickness. The right ventr icular systolic function is normal. ATRIA The left atrium size is normal. The right atrium size is normal. The interatrial septum is intact wit h no evidence for an atrial septal defect or patent foramen ovale as noted on 2-D or Doppler imaging. AORTIC VALVE The aortic valve is normal in structure and function. Doppler and Color Flow revealed trace aortic re gurgitation. Calculated aortic valve area is 2.6 cm2 with maximum pressure gradient of 9 mmHg and beatrice n pressure gradient of 5 mmHg. MITRAL VALVE The mitral valve is normal in structure and function. There is no mitral valve stenosis. Doppler and Color-flow revealed trace mitral regurgitation. TRICUSPID VALVE The tricuspid valve is not well visualized. Doppler and Color Flow revealed trace tricuspid regurgita tion. There is no tricuspid valve stenosis. PULMONIC VALVE The pulmonic valve is not well visualized. Doppler and Color Flow revealed no pulmonic valvular regur gitation. There is no pulmonic valvular stenosis. GREAT VESSELS The aortic root is normal in size. The IVC is normal in size and collapses >50% with inspiration. PERICARDIAL EFFUSION There is no evidence of significant pericardial effusion. Critical Notification Critical Value: No <Conclusion> The left ventricular systolic function is normal and the ejection fraction is within normal range. Th e Ejection Fraction is 60-65%. There is normal LV segmental wall motion. Signed by : Jai Tapia, Electronically Approved : 08/18/2018 15:02:15
== END | disposition home or self-care (01) ==
LOC: ECHO 13:22
PROVIDERS: ATTEND Internal Medicine Cardiovascular Disease
DX: E11.22 Type 2 diabetes mellitus with diabetic chronic kidney disease (principal); I13.0 Hypertensive heart and chronic kidney disease with heart failure and stage 1 through stage 4 chronic kidney disease, or unspecified chronic kidney disease; I50.33 Acute on chronic diastolic (congestive) heart failure; N18.4 Chronic kidney disease, stage 4 (severe); F17.200 Nicotine dependence, unspecified, uncomplicated; Z79.4 Long term (current) use of insulin
CPT/HCPCS: 93306

== ENCOUNTER 2019-10-17 05:00 | Inpatient (IN) | payer MEDICARE, OTHER ==
[~2019-10-17] VITALS: Ht 167.6 cm; Wt 83.1 kg
[~2019-10-17 05:00] MED LIST changes: -AMLO10TA6 PO; +AMLO10TA8 PO; +CETI10TA16 PO; +FAMO20TA5 PO; +FLUT16SP NS; +FOLI1CAP10 PO; -HYDR-2758 PO; +HYDR-2761 PO; +HYDR-3164 PO; -HYDR-971 PO; +LISI1TAB20 PO; -LISI1TAB7 PO; +LOSA100T14 PO; -LOSA100T7 PO; +OSEL30CA PO; +POLY17PO28 PO; -POLY17PO3 PO; +guaiFENesin/CODEINE 100mg/10mg PO
[2019-10-17] MEDS ORDERED: IPRATRPIUM/ALBUTEROL 0.5/2.5MG 3 ML NEBU. NEB ONE (06:30)
[2019-10-17] MEDS ORDERED: fentaNYL PF VIAL 100 MCG/2 ML VIAL IVP ONE ×2 (06:30→07:15)
[2019-10-17] MEDS ORDERED: ACETAMINOPHEN 500 MG TABLET PO ONE (06:30)
[2019-10-17 06:31] LABS: BASO % 1 % (0-3); EOS # 0.1 x10^3/uL (0.0-0.7); EOS % 2 % (0-3); HEMATOCRIT 34.9 % (39.0-53.0); HEMOGLOBIN 11.2 g/dL (13.0-17.5); LYMPH # 0.5 x10^3/uL (1.0-4.8); LYMPH % 6 % (24-48); MEAN CORPUSCULAR HEMOGLOBIN 25 pg (25-35); MEAN CORPUSCULAR HGB CONC 32 g/dL (31-37); MEAN CORPUSCULAR VOLUME 77 fL (79-100); MONO % 13 % (0-9); NEUT # 6.3 x10^3/uL (1.8-7.7); NEUT % 79 % (31-73); PLATELET COUNT 177 x10^3/uL (140-400); RED BLOOD COUNT 4.51 x10^6/uL (4.30-5.70); RED CELL DISTRIBUTION WIDTH 15.7 % (11.5-14.5)
[2019-10-17 06:35] LABS: CALCIUM 9.7 mg/dL (8.5-10.1); CREATININE 5.2 mg/dL (0.7-1.3); POTASSIUM 4.2 mmol/L (3.5-5.1)
[2019-10-17 06:41] LABS: ALBUMIN 3.9 g/dL (3.4-5.0); ALBUMIN/GLOBULIN RATIO 0.8 (1.0-1.7); TOTAL BILIRUBIN 0.3 mg/dL (0.2-1.0); TOTAL PROTEIN 8.7 g/dL (6.4-8.2)
--- NOTE | 2019-10-17 06:56 | RAD ---
Exam: Chest one view INDICATION: Fever TECHNIQUE: Frontal view of the chest Comparisons: 01/20/2019 FINDINGS: The cardiomediastinal silhouette and pulmonary vessels are within normal limits. The lung and pleural spaces are clear. IMPRESSION: No acute cardiopulmonary process. Electronically signed by: Onel Rivas MD (10/17/2019 6:53 AM) [facility]
[2019-10-17 06:58] LABS: INFLUENZA A PATIENT POSITIVE (NEGATIVE); INFLUENZA B PATIENT NEGATIVE (NEGATIVE)
--- NOTE | 2019-10-17 07:14 | PHYS DOC ---
Past Medical History Past Medical History: Anemia, CAD, Cancer, CHF, High Cholesterol, Hypertension, VT, Renal Disease, Other Additional Past Medical Histor: COLON CA Past Surgical History: Cholecystectomy, Colectomy, Other Additional Past Surgical Histo: left upper arm dialysis fistula; rightn chest dialysis catheter Alcohol Use: None Drug Use: Cocaine Adult General Chief Complaint Chief Complaint: FLU SYMPTOM HPI HPI Patient is a 54 year old patient with history of hypertension, anemia, coronary artery disease, diabetes mellitus, CHF, anemia, chronic renal failure on dialysis with the last dialysis yesterday colon cancer and status post colectomy who presents with complaining of cough and congestion. Patient complaining of productive cough with brownish sputum since yesterday with shortness of breath and chest soreness during episodes of cough. Patient states he had 2 episodes of vomiting and one episode of diarrhea and complaining of hurting all over and had chills and subjective fever. Patient complaining of generalized weakness and not feeling good. Review of Systems Review of Systems Constitutional: Reports subjective fever and chills Eyes: Denies change in visual acuity, redness, or eye pain [] HENT: Reports nasal congestion and sore throat Respiratory: Reports cough and shortness of breath Cardiovascular: No additional information not addressed in HPI [] GI: Denies abdominal pain, reports nausea, vomiting, diarrhea [] : Denies dysuria or hematuria [] Musculoskeletal: Denies back pain or joint pain [] Integument: Denies rash or skin lesions [] Neurologic: Denies headache, focal weakness or sensory changes [] Endocrine: Denies polyuria or polydipsia [] All other systems were reviewed and found to be within normal limits, except as documented in this note. Current Medications Current Medications Current Medications Medications (Trade) Dose Ordered Sig/[facility] Start Time Stop Time Status Last Admin Dose Admin Acetaminophen (Tylenol) 1,000 mg 1X ONCE 10/17/19 06:30 10/17/19 06:31 DC 10/17/19 06:25 1,000 MG Albuterol/ Ipratropium (Duoneb) 3 ml 1X ONCE 10/17/19 06:30 10/17/19 06:31 DC 10/17/19 06:25 3 ML Fentanyl Citrate (Fentanyl 2ml Vial) 50 mcg PRN Q2HR PRN 10/17/19 07:30 Ondansetron HCl (Zofran) 4 mg PRN Q8HRS PRN 10/17/19 07:30 10/17/19 14:00 Oseltamivir Phosphate (Tamiflu) 30 mg 1X ONCE 10/17/19 07:30 10/17/19 07:31 DC 10/17/19 07:22 30 MG Allergies Allergies Allergies Coded Allergies Type Severity Reaction Last Updated Verified No Known Medication Allergies Allergy Unknown 09/05/18 Yes Influenza Virus Vaccines Adverse Reaction Intermediate Swelling 09/01/18 Yes shrimp Adverse Reaction Intermediate Swelling 09/01/18 Yes Physical Exam Physical Exam Constitutional: Well developed, moderate distress, non-toxic appearance, temperature 100.6. [] HENT: Normocephalic, atraumatic, bilateral external ears normal, oropharynx moist, pharyngeal erythema, no oral exudates, nose normal. [] Eyes: PERRLA, EOMI, conjunctiva normal, no discharge. [] Neck: Normal range of motion, no tenderness, supple, no stridor. [] Cardiovascular:Heart rate regular rhythm, no murmur [] Lungs & Thorax: Bilateral breath sounds clear to auscultation [] Abdomen: Bowel sounds normal, soft, no tenderness, no masses, no pulsatile masses. [] Skin: Warm, dry, no erythema, no rash. [] Back: No tenderness, no CVA tenderness. [] Extremities: No tenderness, no cyanosis, no clubbing, ROM intact, no edema. [] Neurologic: Alert and oriented X 3, normal motor function, normal sensory function, no focal deficits noted. [] Psychologic: Affect normal, judgement normal, mood normal. [] Current Patient Data Vital Signs Vital Signs Date Time Temp Pulse Resp B/P (MAP) Pulse Ox O2 Delivery O2 Flow Rate FiO2 10/17/19 06:26 94 Room Air 10/17/19 05:28 100.6 93 24 152/71 (98) 100.6 Lab Values Laboratory Tests Test 10/17/19 05:42 10/17/19 06:05 White Blood Count 8.0 x10^3/uL (4.0-11.0) Red Blood Count 4.51 x10^6/uL (4.30-5.70) Hemoglobin 11.2 g/dL (13.0-17.5) L Hematocrit 34.9 % (39.0-53.0) L Mean Corpuscular Volume 77 fL (79-100) L Mean Corpuscular Hemoglobin 25 pg (25-35) Mean Corpuscular Hemoglobin Concent 32 g/dL (31-37) Red Cell Distribution Width 15.7 % (11.5-14.5) H Platelet Count 177 x10^3/uL (140-400) Neutrophils (%) (Auto) 79 % (31-73) H Lymphocytes (%) (Auto) 6 % (24-48) L Monocytes (%) (Auto) 13 % (0-9) H Eosinophils (%) (Auto) 2 % (0-3) Basophils (%) (Auto) 1 % (0-3) Neutrophils # (Auto) 6.3 x10^3/uL (1.8-7.7) Lymphocytes # (Auto) 0.5 x10^3/uL (1.0-4.8) L Monocytes # (Auto) 1.0 x10^3/uL (0.0-1.1) Eosinophils # (Auto) 0.1 x10^3/uL (0.0-0.7) Basophils # (Auto) 0.0 x10^3/uL (0.0-0.2) Sodium Level 134 mmol/L (136-145) L Potassium Level 4.2 mmol/L (3.5-5.1) Chloride Level 98 mmol/L (98-107) Carbon Dioxide Level 28 mmol/L (21-32) Anion Gap 8 (6-14) Blood Urea Nitrogen 34 mg/dL (8-26) H Creatinine 5.2 mg/dL (0.7-1.3) H Estimated GFR (Cockcroft-Gault) 14.0 BUN/Creatinine Ratio 7 (6-20) Glucose Level 178 mg/dL (70-99) H Calcium Level 9.7 mg/dL (8.5-10.1) Total Bilirubin 0.3 mg/dL (0.2-1.0) Aspartate Amino Transferase (AST) 23 U/L (15-37) Alanine Aminotransferase (ALT) 40 U/L (16-63) Alkaline Phosphatase 59 U/L (46-116) Total Protein 8.7 g/dL (6.4-8.2) H Albumin 3.9 g/dL (3.4-5.0) Albumin/Globulin Ratio 0.8 (1.0-1.7) L Influenza Type A Antigen Positive (NEGATIVE) Influenza Type B Antigen Negative (NEGATIVE) Laboratory Tests 10/17/19 05:42 Laboratory Tests 10/17/19 05:42 EKG EKG [] Radiology/Procedures Radiology/Procedures [][facility] [address] [place] [address] IMAGING REPORT Signed PATIENT: RAUL ELIZONDOOUNT: [id number] : 1965 LOCATION: ER AGE: 54 SEX: M EXAM STATUS: REG ER ORD. PHYSICIAN: CARLOS RHOADES MD REASON: fever, chest pain, cough PROCEDURE: PORTABLE CHEST 1V Exam: Chest one view INDICATION: Fever TECHNIQUE: Frontal view of the chest Comparisons: 01/20/2019 FINDINGS: The cardiomediastinal silhouette and pulmonary vessels are within normal limits. The lung and pleural spaces are clear. IMPRESSION: No acute cardiopulmonary process. Electronically signed by: Onel Wharton MD (10/17/2019 6:53 AM) [facility] DICTATED and SIGNED BY: ONEL WHARTON MD DATE: 10/17/19 0653 Course & Med Decision Making Course & Med Decision Making Pertinent Labs and Imaging studies reviewed. (See chart for details) Evaluation of patient in ER showed 54-year-old male patient with multiple medical problem on dialysis presented with fever and cough and congestion and positive influenza A. Because of several comorbidity plan to admit patient. Patient requiring admission for further evaluation and treatment. Discussed with Dr. Zamorano who is in agreement with admission. Discussed findings and plan with patient and family, who acknowledge understanding and agreement. Patient was treated with fentanyl, Zofran, DuoNeb and Tylenol with improvement of his condition, IV fluids was not given because of renal failure. Dragon Disclaimer Dragon Disclaimer This electronic medical record was generated, in whole or in part, using a voice recognition dictation system. Departure Departure Impression: Primary Impression: Influenza A Additional Impressions: Chronic kidney disease with end stage renal failure on dialysis Anemia in chronic kidney disease (CKD) Generalized weakness Disposition: ADMITTED INPATIENT Admitting Physician: MARGARITO Condition: IMPROVED Referrals: TERE SHINE MD (PCP) Problem Qualifiers Additional Impressions: Anemia in chronic kidney disease (CKD) Chronic kidney disease stage: unspecified stage Qualified Codes: N18.9 - Chronic kidney disease, unspecified; D63.1 - Anemia in chronic kidney disease CARLOS RHOADES MD Oct 17, 2019 07:14
[2019-10-17] MEDS ORDERED: ONDANSETRON PF 4 MG/2 ML VIAL. IV ONE (07:15)
[2019-10-17] MEDS ORDERED: OSELTAMIVIR 30 MG CAPSULE PO ONE (07:30)
[2019-10-17] MEDS ORDERED: ONDANSETRON PF 4 MG/2 ML VIAL. IV PRN ×2 (07:30→11:30)
[2019-10-17] MEDS ORDERED: fentaNYL PF VIAL 100 MCG/2 ML VIAL IV PRN (07:30)
[2019-10-17 09:00] VITALS: BP 150/73
--- NOTE | 2019-10-17 09:34 | PDOC1 ---
History and Physical Date of Admission Date of Admission DATE: 10/17/19 TIME: 07:32 Identification/Chief Complaint Chief Complaint SEEN IN ER FLU A POS 54 year old patient with history of hypertension, anemia, coronary artery disease, diabetes mellitus, CHF, anemia, chronic renal failure on dialysis with the last dialysis yesterday colon cancer and status post colectomy who presents with complaining of cough and congestion. Patient complaining of productive cough with brownish sputum since yesterday with shortness of breath and chest soreness during episodes of cough Past Medical History Past Medical History Past Medical History Past Medical History Past Medical History: Anemia, CAD, Cancer, CHF, High Cholesterol, Hypertension, DC, Renal Disease, Other Additional Past Medical Histor: COLON CA Past Surgical History: Cholecystectomy, Colectomy, Other Additional Past Surgical Histo: left upper arm dialysis fistula; rightn chest dialysis catheter Alcohol Use: None Drug Use: Cocaine fhx htn Cardiovascular: HTN, Hyperlipidemia Pulmonary: No pertinent hx CENTRAL NERVOUS SYSTEM: Other GI: Constipation Heme/Onc: Anemia NOS, Cancer Hepatobiliary: Cholelithiasis Psych: No pertinent hx Rheumatologic: No pertinent hx Infectious disease: No pertinent hx Renal/: Chronic renal insuff Endocrine: Diabetes, Hyperparathyroidism Past Surgical History Past Surgical History: Cholecystectomy, Colon Resection Family History Family History: Diabetes, Hypertension Social History Smoke: No ALCOHOL: none Drugs: None Current Problem List Problem List Problems Medical Problems: (1) Anemia in chronic kidney disease (CKD) Status: Acute (2) Chronic kidney disease with end stage renal failure on dialysis Status: Acute (3) Generalized weakness Status: Acute (4) Influenza A Status: Acute Current Medications Current Medications Current Medications Acetaminophen (Tylenol) 1,000 mg 1X ONCE PO Last administered on 10/17/19at 06:25; Start 10/17/19 at 06:30; Stop 10/17/19 at 06:31; Status DC Fentanyl Citrate (Fentanyl 2ml Vial) 50 mcg 1X ONCE IVP ; Start 10/17/19 at 06:30; Stop 10/17/19 at 06:31; Status DC Albuterol/ Ipratropium (Duoneb) 3 ml 1X ONCE NEB Last administered on 10/17/19at 06:25; Start 10/17/19 at 06:30; Stop 10/17/19 at 06:31; Status DC Oseltamivir Phosphate (Tamiflu) 30 mg 1X ONCE PO Last administered on 10/17/19at 07:22; Start 10/17/19 at 07:30; Stop 10/17/19 at 07:31; Status DC Ondansetron HCl (Zofran) 4 mg 1X ONCE IV Last administered on 10/17/19at 07:21; Start 10/17/19 at 07:15; Stop 10/17/19 at 07:16; Status DC Fentanyl Citrate (Fentanyl 2ml Vial) 50 mcg 1X ONCE IVP Last administered on 10/17/19at 07:22; Start 10/17/19 at 07:15; Stop 10/17/19 at 07:16; Status DC Ondansetron HCl (Zofran) 4 mg PRN Q8HRS PRN IV NAUSEA/VOMITING; Start 10/17/19 at 07:30; Stop 10/17/19 at 14:00 Fentanyl Citrate (Fentanyl 2ml Vial) 50 mcg PRN Q2HR PRN IV PAIN; Start 10/17/19 at 07:30 Active Scripts Active Fluticasone Propionate Nasal [place] (Fluticasone Propionate) 16 Gm [place].susp 2 [place] NS DAILY MDD 1 7 Days [guaiFENesin/CODEINE 100mg/10mg] 5 ML Liquid 10 Ml PO QID MDD 1 7 Days Tamiflu (Oseltamivir Phosphate) 30 Mg Capsule 30 Mg PO QMWF MDD 1 7 Days Cetirizine Hcl 10 Mg Tablet 10 Mg PO DAILY MDD 1 7 Days Famotidine 20 Mg Tablet 20 Mg PO Q48H Isosorbide Mononitrate Er (Isosorbide Mononitrate) 30 Mg Tab.er.24h 120 Mg PO DA TIFFANIE 30 Days Humalog (Insulin Lispro) 100 Unit/1 Ml Insuln.pen 7 Units SQ TIDWMEALS 30 Days Lantus Solostar (Insulin Glargine,Hum.rec.anlog) 100 Unit/1 Ml Insuln.pen 25 Units SQ QHS 30 Days Lasix (Furosemide) 40 Mg Tablet 1 Tab PO BID Hydralazine Hcl 50 Mg Tablet 100 Mg PO TID 30 Days Reported Renal Caps Softgel (Folic Acid/Vitamin B Comp W-C) 1 Mg Capsule 1 Cap PO DAILY Doxazosin Mesylate 8 Mg Tablet 8 Mg PO HS Carvedilol 25 Mg Tablet 1 Tab PO BID Atorvastatin Calcium 40 Mg Tablet 40 Mg PO HS Norvasc (Amlodipine Besylate) 10 Mg Tablet 10 Mg PO DAILY Allergies Allergies: Coded Allergies: No Known Medication Allergies (Verified Allergy, Unknown, 09/05/18) Influenza Virus Vaccines (Verified Adverse Reaction, Intermediate, Swelling, 09/01/18) shrimp (Verified Adverse Reaction, Intermediate, Swelling, 09/01/18) ROS Review of System Review of Systems Review of Systems Constitutional: Reports subjective fever and chills Eyes: Denies change in visual acuity, redness, or eye pain [] HENT: Reports nasal congestion and sore throat Respiratory: Reports cough and shortness of breath Cardiovascular: No additional information not addressed in HPI [] GI: Denies abdominal pain, reports nausea, vomiting, diarrhea [] : Denies dysuria or hematuria [] Musculoskeletal: Denies back pain or joint pain [] Integument: Denies rash or skin lesions [] Neurologic: Denies headache, focal weakness or sensory changes [] Endocrine: Denies polyuria or polydipsia [] 14 PT systems were reviewed and found to be within normal limits, except as documented . Musculoskeletal: Yes Joint Stiffness Physical Exam Physical Exam Physical Exam Physical Exam Constitutional: Well developed, moderate distress, non-toxic appearance, temperature 100.6. [] HENT: Normocephalic, atraumatic, bilateral external ears normal, oropharynx moist, pharyngeal erythema, no oral exudates, nose normal. [] Eyes: PERRLA, EOMI, conjunctiva normal, no discharge. [] Neck: Normal range of motion, no tenderness, supple, no stridor. [] Cardiovascular:Heart rate regular rhythm, no murmur [] Lungs & Thorax: Bilateral breath sounds clear to auscultation [] Abdomen: Bowel sounds normal, soft, no tenderness, no masses, no pulsatile masses. [] Skin: Warm, dry, no erythema, no rash. [] Back: No tenderness, no CVA tenderness. [] Extremities: No tenderness, no cyanosis, no clubbing, ROM intact, no edema. [] Neurologic: Alert and oriented X 3, normal motor function, normal sensory function, no focal deficits noted. [] Psychologic: Affect normal, judgement normal, mood normal. [] General: Alert, Oriented X3, Cooperative, moderate distress HEENT: EOMI Lungs: Normal air movement Heart: RRR Abdomen: Normal bowel sounds, Soft Rectal Exam: not examined PELVIC: Examination not indicated Extremities: No cyanosis Neuro: Normal speech, Cranial nerves 3-12 NL Psych/Mental Status: Mental status NL, Mood NL Vitals Vitals Vital Signs Date Time Temp Pulse Resp B/P (MAP) Pulse Ox O2 Delivery O2 Flow Rate FiO2 10/17/19 06:26 94 Room Air 10/17/19 05:28 100.6 93 24 152/71 (98) 100.6 Labs Labs Laboratory Tests Test 10/17/19 05:42 10/17/19 06:05 White Blood Count 8.0 x10^3/uL (4.0-11.0) Red Blood Count 4.51 x10^6/uL (4.30-5.70) Hemoglobin 11.2 g/dL (13.0-17.5) Hematocrit 34.9 % (39.0-53.0) Mean Corpuscular Volume 77 fL (79-100) Mean Corpuscular Hemoglobin 25 pg (25-35) Mean Corpuscular Hemoglobin Concent 32 g/dL (31-37) Red Cell Distribution Width 15.7 % (11.5-14.5) Platelet Count 177 x10^3/uL (140-400) Neutrophils (%) (Auto) 79 % (31-73) Lymphocytes (%) (Auto) 6 % (24-48) Monocytes (%) (Auto) 13 % (0-9) Eosinophils (%) (Auto) 2 % (0-3) Basophils (%) (Auto) 1 % (0-3) Neutrophils # (Auto) 6.3 x10^3/uL (1.8-7.7) Lymphocytes # (Auto) 0.5 x10^3/uL (1.0-4.8) Monocytes # (Auto) 1.0 x10^3/uL (0.0-1.1) Eosinophils # (Auto) 0.1 x10^3/uL (0.0-0.7) Basophils # (Auto) 0.0 x10^3/uL (0.0-0.2) Sodium Level 134 mmol/L (136-145) Potassium Level 4.2 mmol/L (3.5-5.1) Chloride Level 98 mmol/L (98-107) Carbon Dioxide Level 28 mmol/L (21-32) Anion Gap 8 (6-14) Blood Urea Nitrogen 34 mg/dL (8-26) Creatinine 5.2 mg/dL (0.7-1.3) Estimated GFR (Cockcroft-Gault) 14.0 BUN/Creatinine Ratio 7 (6-20) Glucose Level 178 mg/dL (70-99) Calcium Level 9.7 mg/dL (8.5-10.1) Total Bilirubin 0.3 mg/dL (0.2-1.0) Aspartate Amino Transf (AST/SGOT) 23 U/L (15-37) Alanine Aminotransferase (ALT/SGPT) 40 U/L (16-63) Alkaline Phosphatase 59 U/L (46-116) Total Protein 8.7 g/dL (6.4-8.2) Albumin 3.9 g/dL (3.4-5.0) Albumin/Globulin Ratio 0.8 (1.0-1.7) Influenza Type A Antigen Positive (NEGATIVE) Influenza Type B Antigen Negative (NEGATIVE) Laboratory Tests Test 10/17/19 05:42 10/17/19 06:05 White Blood Count 8.0 x10^3/uL (4.0-11.0) Red Blood Count 4.51 x10^6/uL (4.30-5.70) Hemoglobin 11.2 g/dL (13.0-17.5) Hematocrit 34.9 % (39.0-53.0) Mean Corpuscular Volume 77 fL (79-100) Mean Corpuscular Hemoglobin 25 pg (25-35) Mean Corpuscular Hemoglobin Concent 32 g/dL (31-37) Red Cell Distribution Width 15.7 % (11.5-14.5) Platelet Count 177 x10^3/uL (140-400) Neutrophils (%) (Auto) 79 % (31-73) Lymphocytes (%) (Auto) 6 % (24-48) Monocytes (%) (Auto) 13 % (0-9) Eosinophils (%) (Auto) 2 % (0-3) Basophils (%) (Auto) 1 % (0-3) Neutrophils # (Auto) 6.3 x10^3/uL (1.8-7.7) Lymphocytes # (Auto) 0.5 x10^3/uL (1.0-4.8) Monocytes # (Auto) 1.0 x10^3/uL (0.0-1.1) Eosinophils # (Auto) 0.1 x10^3/uL (0.0-0.7) Basophils # (Auto) 0.0 x10^3/uL (0.0-0.2) Sodium Level 134 mmol/L (136-145) Potassium Level 4.2 mmol/L (3.5-5.1) Chloride Level 98 mmol/L (98-107) Carbon Dioxide Level 28 mmol/L (21-32) Anion Gap 8 (6-14) Blood Urea Nitrogen 34 mg/dL (8-26) Creatinine 5.2 mg/dL (0.7-1.3) Estimated GFR (Cockcroft-Gault) 14.0 BUN/Creatinine Ratio 7 (6-20) Glucose Level 178 mg/dL (70-99) Calcium Level 9.7 mg/dL (8.5-10.1) Total Bilirubin 0.3 mg/dL (0.2-1.0) Aspartate Amino Transf (AST/SGOT) 23 U/L (15-37) Alanine Aminotransferase (ALT/SGPT) 40 U/L (16-63) Alkaline Phosphatase 59 U/L (46-116) Total Protein 8.7 g/dL (6.4-8.2) Albumin 3.9 g/dL (3.4-5.0) Albumin/Globulin Ratio 0.8 (1.0-1.7) Influenza Type A Antigen Positive (NEGATIVE) Influenza Type B Antigen Negative (NEGATIVE) Images Images Exam: Chest one view INDICATION: Fever TECHNIQUE: Frontal view of the chest Comparisons: 01/20/2019 FINDINGS: The cardiomediastinal silhouette and pulmonary vessels are within normal limits. The lung and pleural spaces are clear. IMPRESSION: No acute cardiopulmonary process. Electronically signed by: Teo Wharton MD (10/17/2019 6:53 AM) [facility] DICTATED and SIGNED BY: TEO WHARTON MD VTE Prophylaxis Ordered VTE Prophylaxis Devices: No VTE Pharmacological Prophylaxi: Yes Assessment/Plan Assessment/Plan Impression: fever viral sepsis Chronic kidney disease with end stage renal failure on dialysis Anemia in chronic kidney disease (CKD) Generalized weakness Influenza A+ ESRD on dialysis TTH S Anemia of ESRD Hypertension, Diabetes type 2 on insulin Myalgias ADMITTED ID CONSULT TAMIFLU BID RENAL DOSING NEPHROLOGY CONSULT DUONEBS QID BLOOD CULTURE PULM CONSULT HEPARIN DVT PROPHYLAXIS pt/ot IBIS RIVERA MD Oct 17, 2019 09:34
[2019-10-17 11:02] VITALS: BP 142/58
[2019-10-17] MEDS ORDERED: ACETAMINOPHEN 325 MG TABLET. PO PRN (11:15)
[2019-10-17] MEDS ORDERED: cloNIDine HCL 0.1 MG TABLET PO PRN (11:30)
[2019-10-17] MEDS ORDERED: 0.9 % SODIUM CHLORIDE 10 ML DISP.SYRIN. IV PRN (11:30)
[2019-10-17] MEDS: IPRATRPIUM/ALBUTEROL 0.5/2.5MG 3 ML NEBU. NEB SCH ×4 (11:30→23:30)
--- NOTE | 2019-10-17 11:58 | PDOC ---
Infectious Disease Note Vital Sign Vital Signs Vital Signs Date Time Temp Pulse Resp B/P (MAP) Pulse Ox O2 Delivery O2 Flow Rate FiO2 10/17/19 11:02 101.3 88 18 142/58 (86) 95 Room Air 101.3 Labs Lab Laboratory Tests Test 10/17/19 05:42 10/17/19 06:05 White Blood Count 8.0 x10^3/uL (4.0-11.0) Red Blood Count 4.51 x10^6/uL (4.30-5.70) Hemoglobin 11.2 g/dL (13.0-17.5) Hematocrit 34.9 % (39.0-53.0) Mean Corpuscular Volume 77 fL (79-100) Mean Corpuscular Hemoglobin 25 pg (25-35) Mean Corpuscular Hemoglobin Concent 32 g/dL (31-37) Red Cell Distribution Width 15.7 % (11.5-14.5) Platelet Count 177 x10^3/uL (140-400) Neutrophils (%) (Auto) 79 % (31-73) Lymphocytes (%) (Auto) 6 % (24-48) Monocytes (%) (Auto) 13 % (0-9) Eosinophils (%) (Auto) 2 % (0-3) Basophils (%) (Auto) 1 % (0-3) Neutrophils # (Auto) 6.3 x10^3/uL (1.8-7.7) Lymphocytes # (Auto) 0.5 x10^3/uL (1.0-4.8) Monocytes # (Auto) 1.0 x10^3/uL (0.0-1.1) Eosinophils # (Auto) 0.1 x10^3/uL (0.0-0.7) Basophils # (Auto) 0.0 x10^3/uL (0.0-0.2) Sodium Level 134 mmol/L (136-145) Potassium Level 4.2 mmol/L (3.5-5.1) Chloride Level 98 mmol/L (98-107) Carbon Dioxide Level 28 mmol/L (21-32) Anion Gap 8 (6-14) Blood Urea Nitrogen 34 mg/dL (8-26) Creatinine 5.2 mg/dL (0.7-1.3) Estimated GFR (Cockcroft-Gault) 14.0 BUN/Creatinine Ratio 7 (6-20) Glucose Level 178 mg/dL (70-99) Calcium Level 9.7 mg/dL (8.5-10.1) Total Bilirubin 0.3 mg/dL (0.2-1.0) Aspartate Amino Transf (AST/SGOT) 23 U/L (15-37) Alanine Aminotransferase (ALT/SGPT) 40 U/L (16-63) Alkaline Phosphatase 59 U/L (46-116) Total Protein 8.7 g/dL (6.4-8.2) Albumin 3.9 g/dL (3.4-5.0) Albumin/Globulin Ratio 0.8 (1.0-1.7) Influenza Type A Antigen Positive (NEGATIVE) Influenza Type B Antigen Negative (NEGATIVE) Objective Assessment Influenza A Fever N/V CKD on hemodialysis via AV fistula Diabetes h/o E. coli (pansensitive) Plan Plan of Care Tamiflu, renally dosed Maintain aspiration precautions Supportive care Droplet isolation D/w Dr. Zamorano Thank you [phone] Patient seen and examined. Chart reviewed in detail. Case discussed with PLANT MAINTENANCE TECHNICIAN. Agree with above plan. RENE HALL APRN Oct 17, 2019 11:58 ANNABEL VILLANUEVA MD Oct 17, 2019 19:46
[2019-10-17] MEDS: INSULIN LISPRO 300 UNITS/3 ML VIAL. SQ SCH ×2 (12:00→17:00)
[2019-10-17] MEDS ORDERED: ISOSORBIDE MONONITRATE ER 30 MG TAB.ER.24H PO SCH (12:00)
--- NOTE | 2019-10-17 12:38 | CONS ---
DATE OF CONSULTATION: 10/17/2019 REFERRING PHYSICIAN: Bob Zamorano MD REASON FOR CONSULTATION: Influenza. HISTORY OF PRESENT ILLNESS: This patient is a 54-year-old -[place] male who about 2 days ago developed acute onset of cough, chest congestion, shortness of air associated with fevers, chills and sweats. He tried to self-manage with [id number] cough suppressant and Tylenol without improvement. He tested positive for influenza A. Chest x-ray showed clear lungs. He is now on Tamiflu. The patient continues not to feel very well. He says he had some nausea and vomiting yesterday. He has a history of chronic kidney disease, on hemodialysis via AV fistula. He has noticed several other patients with cough. He denies recent travel, antibiotics or pets. He says his sinuses have been draining some and has a mild headache. He denies difficulty swallowing or sore throat. He makes some urine. Denies rash or itching. PAST MEDICAL HISTORY: Influenza A 12/2018. Chronic kidney disease on hemodialysis, diabetes, peripheral neuropathy, coronary artery disease, congestive heart failure, heart attack, hyperlipidemia, hypertension, history of colon cancer, gastroesophageal reflux, anxiety, left retinal detachment, history of E. coli (pansensitive). PAST SURGICAL HISTORY: Colectomy, cholecystectomy, AV fistula. FAMILY HISTORY: Diabetes. SOCIAL HISTORY: The patient lives at home alone. No pets. Nonsmoker. ALLERGIES: INFLUENZA A VIRUS VACCINES AND SHRIMP. REVIEW OF SYSTEMS: Per HPI, otherwise all other review of systems are negative. PHYSICAL EXAMINATION: VITAL SIGNS: Temperature is 101.3, blood pressure 142/58, heart rate 88, respiratory rate 18, and pulse oximetry 95% on room air. BMI is 30.8. GENERAL: The patient is lying down, alert, tired appearance. HEENT: Pupils equal. Oropharynx pink and moist. No lesions. NECK: Supple. LUNGS: Clear to auscultation. CARDIAC: S1, S2. ABDOMEN: Obese, soft, nontender with bowel sounds present. EXTREMITIES: No gross edema or cyanosis. LUE-AV fistula unremarkable. SKIN: Warm to touch without signs of rash. NEUROLOGIC: Alert, answering questions appropriately. LABORATORY DATA: Today's WBC 8.0, hemoglobin 11.2, platelets 177,000. Sodium 134, potassium 4.2, creatinine 5.2, BUN 34, glucose 178. Total bilirubin 0.3, AST 23, ALT 40, albumin 3.9. Influenza type A positive. Chest x-ray per HPI. Blood cultures pending. IMPRESSION: 1. Influenza A. 2. Fever, nausea and vomiting. 3. Chronic kidney disease, on hemodialysis. 4. Diabetes PLAN: 1. Continue Tamiflu renally dosed. 2. Maintain aspiration precautions. 3. Supportive care. 4. Droplet isolation. Thank you, Dr. Zamorano for asking us to participate in this patient's care. Should you have further questions or concerns, please call. ANNABEL VILLANUEVA MD DR: MARICEL/avani JOB#: [id number] / [id number]
[2019-10-17] MEDS: CARVEDILOL 12.5 MG TABLET. PO SCH ×2 (12:51→17:24)
[2019-10-17] MEDS: CETIRIZINE HCL 10 MG TABLET. PO SCH (12:51)
[2019-10-17] MEDS: FLUTICASONE 50MCG/NASAL SPRAY 16GM BOTTLE. NS SCH (12:51)
[2019-10-17] MEDS: HYDROcodone/APAP 5/325MG 1 TAB TABLET PO PRN ×4 (12:52→23:24)
[2019-10-17] MEDS: FOLIC/VIT B COMP W-C (RENAL) TABLET. PO SCH (12:53)
[2019-10-17] MEDS: amLODIPine BESYLATE 10 MG TABLET PO SCH (12:55)
--- NOTE | 2019-10-17 13:33 | PDOC ---
PULMONARY PROGRESS NOTES Vitals Vital Signs Date Time Temp Pulse Resp B/P (MAP) Pulse Ox O2 Delivery O2 Flow Rate FiO2 10/17/19 12:55 88 142/58 10/17/19 12:52 18 Room Air 10/17/19 11:02 101.3 95 101.3 Lungs: Clear, Crackles Cardiovascular: S1, S2 Abdomen: Soft Extremities: No Edema Labs Laboratory Tests Test 10/17/19 05:42 10/17/19 06:05 10/17/19 12:42 White Blood Count 8.0 x10^3/uL (4.0-11.0) Red Blood Count 4.51 x10^6/uL (4.30-5.70) Hemoglobin 11.2 g/dL (13.0-17.5) Hematocrit 34.9 % (39.0-53.0) Mean Corpuscular Volume 77 fL (79-100) Mean Corpuscular Hemoglobin 25 pg (25-35) Mean Corpuscular Hemoglobin Concent 32 g/dL (31-37) Red Cell Distribution Width 15.7 % (11.5-14.5) Platelet Count 177 x10^3/uL (140-400) Neutrophils (%) (Auto) 79 % (31-73) Lymphocytes (%) (Auto) 6 % (24-48) Monocytes (%) (Auto) 13 % (0-9) Eosinophils (%) (Auto) 2 % (0-3) Basophils (%) (Auto) 1 % (0-3) Neutrophils # (Auto) 6.3 x10^3/uL (1.8-7.7) Lymphocytes # (Auto) 0.5 x10^3/uL (1.0-4.8) Monocytes # (Auto) 1.0 x10^3/uL (0.0-1.1) Eosinophils # (Auto) 0.1 x10^3/uL (0.0-0.7) Basophils # (Auto) 0.0 x10^3/uL (0.0-0.2) Sodium Level 134 mmol/L (136-145) Potassium Level 4.2 mmol/L (3.5-5.1) Chloride Level 98 mmol/L (98-107) Carbon Dioxide Level 28 mmol/L (21-32) Anion Gap 8 (6-14) Blood Urea Nitrogen 34 mg/dL (8-26) Creatinine 5.2 mg/dL (0.7-1.3) Estimated GFR (Cockcroft-Gault) 14.0 BUN/Creatinine Ratio 7 (6-20) Glucose Level 178 mg/dL (70-99) Calcium Level 9.7 mg/dL (8.5-10.1) Total Bilirubin 0.3 mg/dL (0.2-1.0) Aspartate Amino Transf (AST/SGOT) 23 U/L (15-37) Alanine Aminotransferase (ALT/SGPT) 40 U/L (16-63) Alkaline Phosphatase 59 U/L (46-116) Total Protein 8.7 g/dL (6.4-8.2) Albumin 3.9 g/dL (3.4-5.0) Albumin/Globulin Ratio 0.8 (1.0-1.7) Procalcitonin 0.43 ng/mL (0.00-0.10) Influenza Type A Antigen Positive (NEGATIVE) Influenza Type B Antigen Negative (NEGATIVE) Glucose (Fingerstick) 138 mg/dL (70-99) Laboratory Tests Test 10/17/19 05:42 10/17/19 06:05 10/17/19 12:42 White Blood Count 8.0 x10^3/uL (4.0-11.0) Red Blood Count 4.51 x10^6/uL (4.30-5.70) Hemoglobin 11.2 g/dL (13.0-17.5) Hematocrit 34.9 % (39.0-53.0) Mean Corpuscular Volume 77 fL (79-100) Mean Corpuscular Hemoglobin 25 pg (25-35) Mean Corpuscular Hemoglobin Concent 32 g/dL (31-37) Red Cell Distribution Width 15.7 % (11.5-14.5) Platelet Count 177 x10^3/uL (140-400) Neutrophils (%) (Auto) 79 % (31-73) Lymphocytes (%) (Auto) 6 % (24-48) Monocytes (%) (Auto) 13 % (0-9) Eosinophils (%) (Auto) 2 % (0-3) Basophils (%) (Auto) 1 % (0-3) Neutrophils # (Auto) 6.3 x10^3/uL (1.8-7.7) Lymphocytes # (Auto) 0.5 x10^3/uL (1.0-4.8) Monocytes # (Auto) 1.0 x10^3/uL (0.0-1.1) Eosinophils # (Auto) 0.1 x10^3/uL (0.0-0.7) Basophils # (Auto) 0.0 x10^3/uL (0.0-0.2) Sodium Level 134 mmol/L (136-145) Potassium Level 4.2 mmol/L (3.5-5.1) Chloride Level 98 mmol/L (98-107) Carbon Dioxide Level 28 mmol/L (21-32) Anion Gap 8 (6-14) Blood Urea Nitrogen 34 mg/dL (8-26) Creatinine 5.2 mg/dL (0.7-1.3) Estimated GFR (Cockcroft-Gault) 14.0 BUN/Creatinine Ratio 7 (6-20) Glucose Level 178 mg/dL (70-99) Calcium Level 9.7 mg/dL (8.5-10.1) Total Bilirubin 0.3 mg/dL (0.2-1.0) Aspartate Amino Transf (AST/SGOT) 23 U/L (15-37) Alanine Aminotransferase (ALT/SGPT) 40 U/L (16-63) Alkaline Phosphatase 59 U/L (46-116) Total Protein 8.7 g/dL (6.4-8.2) Albumin 3.9 g/dL (3.4-5.0) Albumin/Globulin Ratio 0.8 (1.0-1.7) Procalcitonin 0.43 ng/mL (0.00-0.10) Influenza Type A Antigen Positive (NEGATIVE) Influenza Type B Antigen Negative (NEGATIVE) Glucose (Fingerstick) 138 mg/dL (70-99) Medications Active Scripts Medications Dose Route/Sig Max Daily Dose Days Date Category Fluticasone Propionate Nasal [place] (Fluticasone Propionate) 16 Gm [place].susp 2 [place] NS DAILY MDD 1 7 01/22/19 Rx [guaiFENesin/CODEINE 100mg/10mg] 5 ML Liquid 10 Ml PO QID MDD 1 7 01/22/19 Rx Tamiflu (Oseltamivir Phosphate) 30 Mg Capsule 30 Mg PO QMWF MDD 1 7 01/22/19 Rx Cetirizine Hcl 10 Mg Tablet 10 Mg PO DAILY MDD 1 7 01/22/19 Rx Renal Caps Softgel (Folic Acid/Vitamin B Comp W-C) 1 Mg Capsule 1 Cap PO DAILY 01/20/19 Reported Famotidine 20 Mg Tablet 20 Mg PO Q48H 09/12/18 Rx Isosorbide Mononitrate Er (Isosorbide Mononitrate) 30 Mg Tab.er.24h 120 Mg PO DAILY 30 09/12/18 Rx Humalog (Insulin Lispro) 100 Unit/1 Ml Insuln.pen 7 Units SQ TIDWMEALS 30 08/11/18 Rx Lantus Solostar (Insulin Glargine,Hum.rec.anlog) 100 Unit/1 Ml Insuln.pen 25 Units SQ QHS 30 08/11/18 Rx Lasix (Furosemide) 40 Mg Tablet 1 Tab PO BID 08/11/18 Rx Doxazosin Mesylate 8 Mg Tablet 8 Mg PO HS 04/23/18 Reported Hydralazine Hcl 50 Mg Tablet 100 Mg PO TID 30 06/17/17 Rx Carvedilol 25 Mg Tablet 1 Tab PO BID 06/13/17 Reported Atorvastatin Calcium 40 Mg Tablet 40 Mg PO HS 06/13/17 Reported Norvasc (Amlodipine Besylate) 10 Mg Tablet 10 Mg PO DAILY 03/16/16 Reported Impression . note dictated thanks agree with current rx RACHID ANDERSEN MD Oct 17, 2019 13:33
[2019-10-17] MEDS ORDERED: guaiFENesin/CODEINE 100mg/10mg 5 ML LIQUID PO PRN (13:45)
[2019-10-17] MEDS: HEPARIN for SUB-Q USE 5,000 UNIT/ML VIAL. SQ SCH ×2 (14:00→21:21)
[2019-10-17] MEDS: FUROSEMIDE 40 MG TABLET. PO SCH (14:00)
[2019-10-17 15:00] VITALS: BP 101/58
--- NOTE | 2019-10-17 17:25 | NUR ---
lunch and dinner insulin non administered by RN d/t no eating
[2019-10-17 19:00] VITALS: BP 114/56
--- NOTE | 2019-10-17 19:03 | CONS ---
DATE OF CONSULTATION: 10/17/2019 ATTENDING PHYSICIAN: Dr. Zamorano. REASON FOR CONSULTATION: The patient seen in pulmonary consultation at the request of Dr. Zamorano for increasing shortness of breath and cough. HISTORY OF PRESENT ILLNESS: The patient is a 54-year-old immunocompromised on hemodialysis, presented with a 2-3 day history of increasing shortness of breath, cough, congestion. He took some [id number]-[id number] medications with no significant improvement. He has severe muscle aches and joint pain. His cough is mostly nonproductive. No documented fever, chills, nausea, vomiting. Allergic to influenza virus vaccine. He had influenza screen, which was positive for influenza A. His electrolytes were noted. BUN and creatinine were elevated. White count was normal. Chest x-ray was reviewed, no acute infiltrates. PAST MEDICAL HISTORY: Chronic kidney disease, on hemodialysis; peripheral neuropathy, type 2 diabetes, coronary artery disease, congestive heart failure, previous myocardial infarction, hyperlipidemia, hypertension, colon cancer, gastroesophageal reflux. He has had previous Escherichia coli septicemia. PAST SURGICAL HISTORY: Status post colostomy, cholecystectomy, AV fistula formation. FAMILY HISTORY: Diabetes. SOCIAL HISTORY: He is currently not working. He quit tobacco in 1992. ALLERGIES: TO INFLUENZA VIRUS VACCINE. REVIEW OF SYSTEMS: As indicated above, otherwise, a 10-point system was reviewed and negative. CONSTITUTIONAL: No fever or chills. EYES: No change in visual acuity. HENT: No nasal congestion or sore throat. PULMONARY: As indicated above. CARDIOVASCULAR: No chest pain. No pressure. GASTROINTESTINAL: No nausea, vomiting, diarrhea. GENITOURINARY: No dysuria or frequency. MUSCULOSKELETAL: As indicated above. SKIN: No new skin rashes. NEUROLOGIC: No headaches, diplopia or blurred vision. PHYSICAL EXAMINATION: GENERAL: The patient had severe paroxysmal coughing spells. VITAL SIGNS: T-max was 101.3. HEENT: Eyes, the sclerae were nonicteric. NECK: Jugular venous distention was not elevated. No lymphadenopathy. CHEST: Full expansion. LUNGS: Crackles throughout both lung vazquez. CARDIOVASCULAR: Regular rate and rhythm with S1, S2, no S3. ABDOMEN: Soft, nontender, nondistended. EXTREMITIES: No clubbing, cyanosis or edema. NEUROLOGICAL: The patient was awake, alert, following commands. A detailed neuro exam was not performed. LABORATORY DATA: As indicated above. IMPRESSION: 1. Progressive dyspnea, paroxysmal coughing spell secondary to influenza A. 2. Influenza A. 3. Fever. 4. Immunocompromised, the patient on chronic hemodialysis for chronic kidney disease. 5. History of Escherichia coli sepsis. PLAN: 1. We will continue support with Tamiflu. 2. Oxygen supplementation. 3. Pain management. 4. Cough suppressor. I do appreciate the privilege in sharing in the patient's care. RACHID ANDERSEN MD DR: ALEXANDRA/avani JOB#: [id number] / [id number]
[2019-10-17] MEDS ORDERED: DOXAZOSIN MESYLATE 4 MG TABLET. PO SCH (21:00)
[2019-10-17] MEDS ORDERED: ATORVASTATIN CALCIUM 40 MG TABLET. PO SCH (21:00)
[2019-10-17] MEDS: ACETAMINOPHEN 325 MG TABLET. PO PRN (21:10)
[2019-10-17] MEDS: guaiFENesin ORAL 200 MG/10 ML LIQUID. PO PRN (21:11)
[2019-10-17] MEDS: INSULIN GLARGINE SYRINGE. SQ SCH (21:21)
[2019-10-17 23:00] VITALS: BP 116/57
[2019-10-18] MEDS ORDERED: ASPI-612 PO (00:18)
[2019-10-18] MEDS ORDERED: OMEP-229 PO (00:18)
[2019-10-18] MEDS ORDERED: ENAL10TA PO (00:18)
[2019-10-18] MEDS ORDERED: HYDR-2869 PO (00:18)
[2019-10-18] MEDS ORDERED: ATOR10TA60 PO (00:18)
[2019-10-18] MEDS ORDERED: INSU100V6 SQ (00:24)
[2019-10-18] MEDS ORDERED: INSU100I13 SQ (00:24)
--- NOTE | 2019-10-18 00:39 | NUR ---
MEDICATION NOTE After reviewing pts home medications that he brought to the hospital compared with the home med list in the computer, medication doses adjusted to what pt actually takes at home, and medications d/c'd in orders because pt no longer takes them at home. Home medication list is now correct with pts current home meds.
--- NOTE | 2019-10-18 01:23 | CONS ---
DATE OF CONSULTATION: REASON FOR CONSULTATION: Renal failure. HISTORY OF PRESENT ILLNESS: A 54-year-old gentleman with history of diabetes mellitus and end-stage renal disease, hemodialysis dependent on Friday, Friday, Friday schedule. Presented to the hospital with fever, chills, diaphoresis, cough, and shortness of breath. He was found to be positive for influenza A. ____ the ongoing dialysis such Nephrology evaluation requested. PAST MEDICAL HISTORY: Diabetes mellitus, hypertension, end-stage renal disease, hemodialysis dependent, anemia of chronic kidney disease, secondary hyperparathyroidism, renal disease, peripheral neuropathy, coronary artery disease with congestive cardiomyopathy, hyperlipidemia, colon cancer, GE reflux disease, left retinal detachment with E. coli, history of E. coli infection, colectomy, cholecystectomy, AV fistula placement. ALLERGIES: SHRIMP, IV CONTRAST, IODINE. MEDICATIONS: Reviewed per medication list. FAMILY HISTORY: Noncontributory. SOCIAL HISTORY: The patient resides independently. REVIEW OF SYSTEMS: No headache, sinus problem, nasal drainage, epistaxis, change in vision or hearing. No difficulty swallowing. No fever, chills, cough, sputum production, or hemoptysis. No abdominal pain. No nausea, vomiting, diarrhea, or seizures. He does have history of colon cancer. PHYSICAL EXAMINATION: GENERAL APPEARANCE: The patient is somnolent, but awakens and follows. HEENT: Clear. NECK: No increased JVD. No thyromegaly, mass or adenopathy. LUNGS: Clear. CARDIAC: Without S3 or rub. ABDOMEN: Soft, nontender, no bruits. EXTREMITIES: Without edema. NEUROLOGIC: Nonfocal, nonlocalized. PSYCHIATRIC: Somnolent reduced attention to detail. LABORATORY DATA: White count 8, hemoglobin 11.2, hematocrit 34.9, platelets are 177. Sodium 134, potassium 4.2, chloride 98, CO2 28, BUN 34, creatinine 5.2, GFR is 14, calcium 9.7. Influenza A antigen positive. Influenza B antigen negative. IMPRESSION: 1. End-stage renal disease, hemodialysis dependent, secondary to diabetic nephropathy. 2. Influenza A. 3. Anemia of chronic kidney disease. RECOMMENDATIONS: 1. Ongoing dialysis with dialysis scheduled for Friday. 2. Treatment of influenza as per Infectious Disease consultation. We will follow. WILBER MACE MD DR: HARLEY/avani JOB#: [id number] / [id number]
[2019-10-18 03:00] VITALS: BP 126/59
[2019-10-18] MEDS: IPRATRPIUM/ALBUTEROL 0.5/2.5MG 3 ML NEBU. NEB SCH ×6 (03:30→23:30)
[2019-10-18] MEDS: HYDROcodone/APAP 5/325MG 1 TAB TABLET PO PRN ×3 (04:48→20:04)
[2019-10-18] MEDS: HEPARIN for SUB-Q USE 5,000 UNIT/ML VIAL. SQ SCH ×3 (04:55→20:17)
[2019-10-18 05:20] LABS: BASO % 1 % (0-3); EOS # 0.1 x10^3/uL (0.0-0.7); EOS % 1 % (0-3); HEMATOCRIT 32.2 % (39.0-53.0); HEMOGLOBIN 10.3 g/dL (13.0-17.5); LYMPH # 1.4 x10^3/uL (1.0-4.8); LYMPH % 29 % (24-48); MEAN CORPUSCULAR HEMOGLOBIN 25 pg (25-35); MEAN CORPUSCULAR HGB CONC 32 g/dL (31-37); MEAN CORPUSCULAR VOLUME 79 fL (79-100); MONO % 20 % (0-9); NEUT # 2.5 x10^3/uL (1.8-7.7); NEUT % 50 % (31-73); PLATELET COUNT 138 x10^3/uL (140-400); RED CELL DISTRIBUTION WIDTH 15.9 % (11.5-14.5)
[2019-10-18 05:40] LABS: ALBUMIN 3.3 g/dL (3.4-5.0); CALCIUM 9.1 mg/dL (8.5-10.1); CREATININE 6.6 mg/dL (0.7-1.3); GFR 10.6; PHOSPHORUS 4.9 mg/dL (2.6-4.7); POTASSIUM 4.1 mmol/L (3.5-5.1)
[2019-10-18 07:00] VITALS: BP 127/67
[2019-10-18 07:29] LABS: % BANDS 2 % (0-9); % EOS 3 % (0-5); % LYMPHS 33 % (24-48); % MONOS 10 % (0-10); % SEGS 52 % (35-66); ANISOCYTOSIS SLIGHT; NUCLEATED RBC 1; PLT ESTIMATE ADEQUATE (ADEQUATE)
--- NOTE | 2019-10-18 09:47 | NUR ---
IP: Pt is influenza + requiring droplet precautions for 7 days and 24 hours without a fever, whichever is longest.
--- NOTE | 2019-10-18 09:58 | PDOC ---
PROGRESS NOTES History of Present Illness History of Present Illness VTE Prophylaxis Ordered VTE Prophylaxis Devices: No VTE Pharmacological Prophylaxi: Yes Assessment/Plan Assessment/Plan Impression: fever viral sepsis Chronic kidney disease with end stage renal failure on dialysis Anemia in chronic kidney disease (CKD) Generalized weakness Influenza A+ ESRD on dialysis TTH S Anemia of ESRD Hypertension, Diabetes type 2 on insulin Myalgias ADMITTED ID CONSULT TAMIFLU BID RENAL DOSING NEPHROLOGY CONSULT DUONEBS QID BLOOD CULTURE PULM CONSULT HEPARIN DVT PROPHYLAXIS pt/ot 10/18 poor appetite, little intake so far Vitals Vitals Vital Signs Date Time Temp Pulse Resp B/P (MAP) Pulse Ox O2 Delivery O2 Flow Rate FiO2 10/18/19 08:12 94 Room Air 10/18/19 07:00 98.5 72 18 127/67 (87) 98.5 Physical Exam General: Alert, Oriented X3, Cooperative, moderate distress Lungs: Clear, Crackles Abdomen: Normal bowel sounds, Soft Extremities: No cyanosis Labs LABS SPEC #: [id number] MAYNOR: 10/17/19 STATUS: RES REQ #: [id number] RECD: 10/17/[address]: IBIS RIVERA MD SOURCE: BLOOD ENTR: 10/17/[address]: ISABEL RODRIGUEZ MD SPDESC: TERE SHINE MD,WILBER Cheney MD ORDERED: BCULT Procedure Result ---- -------- BLOOD CULTURE Preliminary NO GROWTH AFTER 1 DAY Laboratory Tests Test 10/17/19 12:42 10/17/19 13:00 10/17/19 16:24 10/17/19 19:46 Glucose (Fingerstick) 138 mg/dL (70-99) 141 mg/dL (70-99) 218 mg/dL (70-99) Lactic Acid Level 0.8 mmol/L (0.4-2.0) Test 10/18/19 03:40 10/18/19 07:26 White Blood Count 5.0 x10^3/uL (4.0-11.0) Red Blood Count 4.10 x10^6/uL (4.30-5.70) Hemoglobin 10.3 g/dL (13.0-17.5) Hematocrit 32.2 % (39.0-53.0) Mean Corpuscular Volume 79 fL (79-100) Mean Corpuscular Hemoglobin 25 pg (25-35) Mean Corpuscular Hemoglobin Concent 32 g/dL (31-37) Red Cell Distribution Width 15.9 % (11.5-14.5) Platelet Count 138 x10^3/uL (140-400) Neutrophils (%) (Auto) 50 % (31-73) Lymphocytes (%) (Auto) 29 % (24-48) Monocytes (%) (Auto) 20 % (0-9) Eosinophils (%) (Auto) 1 % (0-3) Basophils (%) (Auto) 1 % (0-3) Neutrophils # (Auto) 2.5 x10^3/uL (1.8-7.7) Lymphocytes # (Auto) 1.4 x10^3/uL (1.0-4.8) Monocytes # (Auto) 1.0 x10^3/uL (0.0-1.1) Eosinophils # (Auto) 0.1 x10^3/uL (0.0-0.7) Basophils # (Auto) 0.0 x10^3/uL (0.0-0.2) Segmented Neutrophils % 52 % (35-66) Band Neutrophils % 2 % (0-9) Lymphocytes % 33 % (24-48) Monocytes % 10 % (0-10) Eosinophils % 3 % (0-5) Nucleated Red Blood Cells 1 Platelet Estimate Adequate (ADEQUATE) Anisocytosis Slight Sodium Level 135 mmol/L (136-145) Potassium Level 4.1 mmol/L (3.5-5.1) Chloride Level 97 mmol/L (98-107) Carbon Dioxide Level 28 mmol/L (21-32) Anion Gap 10 (6-14) Blood Urea Nitrogen 51 mg/dL (8-26) Creatinine 6.6 mg/dL (0.7-1.3) Estimated GFR (Cockcroft-Gault) 10.6 Glucose Level 146 mg/dL (70-99) Calcium Level 9.1 mg/dL (8.5-10.1) Phosphorus Level 4.9 mg/dL (2.6-4.7) Albumin 3.3 g/dL (3.4-5.0) Glucose (Fingerstick) 198 mg/dL (70-99) Assessment and Plan Assessmemt and Plan Problems Medical Problems: (1) Anemia in chronic kidney disease (CKD) Status: Acute (2) Chronic kidney disease with end stage renal failure on dialysis Status: Acute (3) Generalized weakness Status: Acute (4) Influenza A Status: Acute Comment Review of Relevant I have reviewed the following items akanksha (where applicable) has been applied. Labs Laboratory Tests Test 10/17/19 05:42 10/17/19 06:05 10/17/19 12:42 10/17/19 13:00 White Blood Count 8.0 x10^3/uL (4.0-11.0) Red Blood Count 4.51 x10^6/uL (4.30-5.70) Hemoglobin 11.2 g/dL (13.0-17.5) Hematocrit 34.9 % (39.0-53.0) Mean Corpuscular Volume 77 fL (79-100) Mean Corpuscular Hemoglobin 25 pg (25-35) Mean Corpuscular Hemoglobin Concent 32 g/dL (31-37) Red Cell Distribution Width 15.7 % (11.5-14.5) Platelet Count 177 x10^3/uL (140-400) Neutrophils (%) (Auto) 79 % (31-73) Lymphocytes (%) (Auto) 6 % (24-48) Monocytes (%) (Auto) 13 % (0-9) Eosinophils (%) (Auto) 2 % (0-3) Basophils (%) (Auto) 1 % (0-3) Neutrophils # (Auto) 6.3 x10^3/uL (1.8-7.7) Lymphocytes # (Auto) 0.5 x10^3/uL (1.0-4.8) Monocytes # (Auto) 1.0 x10^3/uL (0.0-1.1) Eosinophils # (Auto) 0.1 x10^3/uL (0.0-0.7) Basophils # (Auto) 0.0 x10^3/uL (0.0-0.2) Sodium Level 134 mmol/L (136-145) Potassium Level 4.2 mmol/L (3.5-5.1) Chloride Level 98 mmol/L (98-107) Carbon Dioxide Level 28 mmol/L (21-32) Anion Gap 8 (6-14) Blood Urea Nitrogen 34 mg/dL (8-26) Creatinine 5.2 mg/dL (0.7-1.3) Estimated GFR (Cockcroft-Gault) 14.0 BUN/Creatinine Ratio 7 (6-20) Glucose Level 178 mg/dL (70-99) Calcium Level 9.7 mg/dL (8.5-10.1) Total Bilirubin 0.3 mg/dL (0.2-1.0) Aspartate Amino Transf (AST/SGOT) 23 U/L (15-37) Alanine Aminotransferase (ALT/SGPT) 40 U/L (16-63) Alkaline Phosphatase 59 U/L (46-116) Total Protein 8.7 g/dL (6.4-8.2) Albumin 3.9 g/dL (3.4-5.0) Albumin/Globulin Ratio 0.8 (1.0-1.7) Procalcitonin 0.43 ng/mL (0.00-0.10) Influenza Type A Antigen Positive (NEGATIVE) Influenza Type B Antigen Negative (NEGATIVE) Glucose (Fingerstick) 138 mg/dL (70-99) Lactic Acid Level 0.8 mmol/L (0.4-2.0) Test 10/17/19 16:24 10/17/19 19:46 10/18/19 03:40 10/18/19 07:26 Glucose (Fingerstick) 141 mg/dL (70-99) 218 mg/dL (70-99) 198 mg/dL (70-99) White Blood Count 5.0 x10^3/uL (4.0-11.0) Red Blood Count 4.10 x10^6/uL (4.30-5.70) Hemoglobin 10.3 g/dL (13.0-17.5) Hematocrit 32.2 % (39.0-53.0) Mean Corpuscular Volume 79 fL (79-100) Mean Corpuscular Hemoglobin 25 pg (25-35) Mean Corpuscular Hemoglobin Concent 32 g/dL (31-37) Red Cell Distribution Width 15.9 % (11.5-14.5) Platelet Count 138 x10^3/uL (140-400) Neutrophils (%) (Auto) 50 % (31-73) Lymphocytes (%) (Auto) 29 % (24-48) Monocytes (%) (Auto) 20 % (0-9) Eosinophils (%) (Auto) 1 % (0-3) Basophils (%) (Auto) 1 % (0-3) Neutrophils # (Auto) 2.5 x10^3/uL (1.8-7.7) Lymphocytes # (Auto) 1.4 x10^3/uL (1.0-4.8) Monocytes # (Auto) 1.0 x10^3/uL (0.0-1.1) Eosinophils # (Auto) 0.1 x10^3/uL (0.0-0.7) Basophils # (Auto) 0.0 x10^3/uL (0.0-0.2) Segmented Neutrophils % 52 % (35-66) Band Neutrophils % 2 % (0-9) Lymphocytes % 33 % (24-48) Monocytes % 10 % (0-10) Eosinophils % 3 % (0-5) Nucleated Red Blood Cells 1 Platelet Estimate Adequate (ADEQUATE) Anisocytosis Slight Sodium Level 135 mmol/L (136-145) Potassium Level 4.1 mmol/L (3.5-5.1) Chloride Level 97 mmol/L (98-107) Carbon Dioxide Level 28 mmol/L (21-32) Anion Gap 10 (6-14) Blood Urea Nitrogen 51 mg/dL (8-26) Creatinine 6.6 mg/dL (0.7-1.3) Estimated GFR (Cockcroft-Gault) 10.6 Glucose Level 146 mg/dL (70-99) Calcium Level 9.1 mg/dL (8.5-10.1) Phosphorus Level 4.9 mg/dL (2.6-4.7) Albumin 3.3 g/dL (3.4-5.0) Laboratory Tests Test 10/17/19 12:42 10/17/19 13:00 10/17/19 16:24 10/17/19 19:46 Glucose (Fingerstick) 138 mg/dL (70-99) 141 mg/dL (70-99) 218 mg/dL (70-99) Lactic Acid Level 0.8 mmol/L (0.4-2.0) Test 10/18/19 03:40 10/18/19 07:26 White Blood Count 5.0 x10^3/uL (4.0-11.0) Red Blood Count 4.10 x10^6/uL (4.30-5.70) Hemoglobin 10.3 g/dL (13.0-17.5) Hematocrit 32.2 % (39.0-53.0) Mean Corpuscular Volume 79 fL (79-100) Mean Corpuscular Hemoglobin 25 pg (25-35) Mean Corpuscular Hemoglobin Concent 32 g/dL (31-37) Red Cell Distribution Width 15.9 % (11.5-14.5) Platelet Count 138 x10^3/uL (140-400) Neutrophils (%) (Auto) 50 % (31-73) Lymphocytes (%) (Auto) 29 % (24-48) Monocytes (%) (Auto) 20 % (0-9) Eosinophils (%) (Auto) 1 % (0-3) Basophils (%) (Auto) 1 % (0-3) Neutrophils # (Auto) 2.5 x10^3/uL (1.8-7.7) Lymphocytes # (Auto) 1.4 x10^3/uL (1.0-4.8) Monocytes # (Auto) 1.0 x10^3/uL (0.0-1.1) Eosinophils # (Auto) 0.1 x10^3/uL (0.0-0.7) Basophils # (Auto) 0.0 x10^3/uL (0.0-0.2) Segmented Neutrophils % 52 % (35-66) Band Neutrophils % 2 % (0-9) Lymphocytes % 33 % (24-48) Monocytes % 10 % (0-10) Eosinophils % 3 % (0-5) Nucleated Red Blood Cells 1 Platelet Estimate Adequate (ADEQUATE) Anisocytosis Slight Sodium Level 135 mmol/L (136-145) Potassium Level 4.1 mmol/L (3.5-5.1) Chloride Level 97 mmol/L (98-107) Carbon Dioxide Level 28 mmol/L (21-32) Anion Gap 10 (6-14) Blood Urea Nitrogen 51 mg/dL (8-26) Creatinine 6.6 mg/dL (0.7-1.3) Estimated GFR (Cockcroft-Gault) 10.6 Glucose Level 146 mg/dL (70-99) Calcium Level 9.1 mg/dL (8.5-10.1) Phosphorus Level 4.9 mg/dL (2.6-4.7) Albumin 3.3 g/dL (3.4-5.0) Glucose (Fingerstick) 198 mg/dL (70-99) Medications Current Medications Acetaminophen (Tylenol) 1,000 mg 1X ONCE PO Last administered on 10/17/19at 06:25; Start 10/17/19 at 06:30; Stop 10/17/19 at 06:31; Status DC Fentanyl Citrate (Fentanyl 2ml Vial) 50 mcg 1X ONCE IVP ; Start 10/17/19 at 06:30; Stop 10/17/19 at 06:31; Status DC Albuterol/ Ipratropium (Duoneb) 3 ml 1X ONCE NEB Last administered on 10/17/19at 06:25; Start 10/17/19 at 06:30; Stop 10/17/19 at 06:31; Status DC Oseltamivir Phosphate (Tamiflu) 30 mg 1X ONCE PO Last administered on 10/17/19at 07:22; Start 10/17/19 at 07:30; Stop 10/17/19 at 07:31; Status DC Ondansetron HCl (Zofran) 4 mg 1X ONCE IV Last administered on 10/17/19at 07:21; Start 10/17/19 at 07:15; Stop 10/17/19 at 07:16; Status DC Fentanyl Citrate (Fentanyl 2ml Vial) 50 mcg 1X ONCE IVP Last administered on 10/17/19at 07:22; Start 10/17/19 at 07:15; Stop 10/17/19 at 07:16; Status DC Ondansetron HCl (Zofran) 4 mg PRN Q8HRS PRN IV NAUSEA/VOMITING; Start 10/17/19 at 07:30; Stop 10/17/19 at 14:00; Status DC Fentanyl Citrate (Fentanyl 2ml Vial) 50 mcg PRN Q2HR PRN IV PAIN; Start 10/17/19 at 07:30; Stop 10/17/19 at 11:50; Status DC Oseltamivir Phosphate (Tamiflu) 30 mg QTUTHSA PO ; Start 10/19/19 at 16:00; Stop 10/21/19 at 16:01 Acetaminophen (Tylenol) 650 mg PRN Q6HRS PRN PO FEVER Last administered on 10/17/19at 11:14; Start 10/17/19 at 11:15; Stop 10/17/19 at 11:26; Status DC Sodium Chloride (Normal Saline Flush) 3 ml QSHIFT PRN IV AFTER MEDS AND BLOOD DRAWS; Start 10/17/19 at 11:30 Ondansetron HCl (Zofran) 4 mg PRN Q4HRS PRN IV NAUSEA/VOMITING; Start 10/17/19 at 11:30 Acetaminophen (Tylenol) 650 mg PRN Q4HRS PRN PO TEMP OVER 100.4F OR MILD PAIN Last administered on 10/17/19at 21:10; Start 10/17/19 at 11:30 Clonidine HCl (Catapres) 0.1 mg PRN Q6HRS PRN PO SBP>160 OR DBP>90; Start 10/17/19 at 11:30 Docusate Sodium (Colace) 100 mg PRN BID PRN PO CONSTIPATION; Start 10/17/19 at 11:30 Albuterol/ Ipratropium (Duoneb) 3 ml Q4H NEB Last administered on 10/18/19at 08:11; Start 10/17/19 at 11:30 Guaifenesin (Robitussin) 200 mg PRN Q4HRS PRN PO COUGH Last administered on 10/17/19at 21:11; Start 10/17/19 at 11:30 Heparin Sodium (Porcine) (Heparin Sodium) 5,000 unit Q8HRS SQ Last administered on 10/18/19at 04:55; Start 10/17/19 at 14:00 Amlodipine Besylate (Norvasc) 10 mg DAILY PO Last administered on 10/17/19at 12:55; Start 10/17/19 at 12:00 Atorvastatin Calcium (Lipitor) 40 mg HS PO Last administered on 10/17/19at 21:11; Start 10/17/19 at 21:00; Stop 10/18/19 at 00:21; Status DC Cetirizine HCl (ZyrTEC) 10 mg DAILY PO Last administered on 10/17/19at 12:51; Start 10/17/19 at 12:00 Famotidine (Pepcid) 20 mg QODAY PO ; Start 10/19/19 at 09:00; Stop 10/18/19 at 00:22; Status DC Fluticasone Propionate (Flonase) 2 spray DAILY NS Last administered on 10/17/19at 12:51; Start 10/17/19 at 12:00 Furosemide (Lasix) 40 mg BID92 PO ; Start 10/17/19 at 14:00 Hydralazine HCl (Apresoline) 100 mg TID PO Last administered on 10/17/19at 21:14; Start 10/17/19 at 14:00; Stop 10/18/19 at 00:22; Status DC Insulin Human Lispro (HumaLOG) 7 units TIDWMEALS SQ ; Start 10/17/19 at 12:00 Isosorbide Mononitrate (Imdur) 120 mg DAILY PO Last administered on 10/17/19at 12:53; Start 10/17/19 at 12:00; Stop 10/18/19 at 00:22; Status DC Oseltamivir Phosphate (Tamiflu) 30 mg QMWF PO ; Start 10/18/19 at 16:00; Stop 10/23/19 at 15:59; Status UNV Carvedilol (Coreg) 25 mg BIDWMEALS PO Last administered on 10/17/19at 17:24; Start 10/17/19 at 12:00 Doxazosin Mesylate (Cardura) 8 mg QHS PO ; Start 10/17/19 at 21:00; Stop 10/18/19 at 00:22; Status DC Vitamin B Complex/ Vitamin C ([place]) 1 tab DAILY PO Last administered on 10/17/19at 12:53; Start 10/17/19 at 12:00 Insulin Glargine (Lantus Syringe) 25 unit QHS SQ Last administered on 10/17/19 at 21:21; Start 10/17/19 at 21:00 Guaifenesin/ Codeine Phosphate (Robitussin Ac) 5 ml PRN Q6HRS PRN PO COUGH; Start 10/17/19 at 11:45 Acetaminophen/ Hydrocodone Bitart (Lortab 5/325) 1 tab PRN Q4HRS PRN PO PAIN Last administered on 10/18/19at 04:48; Start 10/17/19 at 12:00 Guaifenesin/ Codeine Phosphate (Robitussin Ac) 5 ml PRN Q6HRS PRN PO COUGH; Start 10/17/19 at 13:45; Status UNV Atorvastatin Calcium (Lipitor) 10 mg QHS PO ; Start 10/18/19 at 21:00 Hydralazine HCl (Apresoline) 50 mg TID PO ; Start 10/18/19 at 09:00 Pantoprazole Sodium (Protonix) 40 mg DAILYAC PO ; Start 10/18/19 at 07:30 Active Scripts Active Fluticasone Propionate Nasal [place] (Fluticasone Propionate) 16 Gm [place].susp 2 [place] NS DAILY MDD 1 7 Days [guaiFENesin/CODEINE 100mg/10mg] 5 ML Liquid 10 Ml PO QID MDD 1 7 Days Tamiflu (Oseltamivir Phosphate) 30 Mg Capsule 30 Mg PO QMWF MDD 1 7 Days Cetirizine Hcl 10 Mg Tablet 10 Mg PO DAILY MDD 1 7 Days Lasix (Furosemide) 40 Mg Tablet 1 Tab PO BID Reported Lantus Solostar (Insulin Glargine,Hum.rec.anlog) 100 Unit/1 Ml Insuln.pen 45 Unit SQ QHS Humalog (Insulin Lispro) 100 Unit/1 Ml Vial 15 Unit SQ TIDWMEALS Omeprazole 20 Mg Capsule.dr 20 Mg PO DAILY Aspirin Ec (Aspirin) 81 Mg Tablet.dr 81 Mg PO DAILY Atorvastatin Calcium 10 Mg Tablet 10 Mg PO HS Hydralazine Hcl 50 Mg Tablet 50 Mg PO TID Renal Caps Softgel (Folic Acid/Vitamin B Comp W-C) 1 Mg Capsule 1 Cap PO DAILY Carvedilol 25 Mg Tablet 1 Tab PO BID Norvasc (Amlodipine Besylate) 10 Mg Tablet 10 Mg PO DAILY Vitals/I & O Vital Sign - Last 24 Hours 10/17/19 10/17/19 10/17/19 10/17/19 11:02 12:39 12:51 12:52 Temp 101.3 101.3 Pulse 88 88 Resp 18 18 18 B/P (MAP) 142/58 (86) 142/58 Pulse Ox 95 O2 Delivery Room Air Room Air Room Air 10/17/19 10/17/19 10/17/19 10/17/19 12:53 12:55 13:50 14:00 Pulse 88 88 76 Resp 18 B/P (MAP) 142/58 142/58 101/58 O2 Delivery Room Air 10/17/19 10/17/19 10/17/19 10/17/19 15:00 16:07 17:24 17:24 Temp 99.6 99.6 Pulse 76 76 Resp 18 18 B/P (MAP) 101/58 (72) 119/59 Pulse Ox 97 O2 Delivery Room Air Room Air Room Air 10/17/19 10/17/19 10/17/19 10/17/19 18:20 18:24 19:00 20:01 Temp 100.8 100.8 Pulse 93 Resp 19 18 B/P (MAP) 114/56 (75) Pulse Ox 90 O2 Delivery Room Air Room Air Room Air Room Air 10/17/19 10/17/19 10/17/19 10/17/19 20:53 21:14 23:00 23:24 Temp 99.4 99.4 Pulse 93 85 Resp 18 20 B/P (MAP) 114/56 116/57 (76) Pulse Ox 91 O2 Delivery Room Air Room Air Room Air 10/18/19 10/18/19 10/18/19 10/18/19 00:24 03:00 04:48 05:48 Temp 98.7 98.7 Pulse 77 Resp 20 18 20 20 B/P (MAP) 126/59 (81) Pulse Ox 93 O2 Delivery Room Air Room Air Room Air Room Air 10/18/19 10/18/19 10/18/19 07:00 08:00 08:12 Temp 98.5 98.5 Pulse 72 Resp 18 B/P (MAP) 127/67 (87) Pulse Ox 91 94 O2 Delivery Room Air Room Air Room Air Intake and Output 10/17/19 10/17/19 10/18/19 15:00 23:00 07:00 Intake Total 550 ml Output Total 200 ml 125 ml 150 ml Balance -200 ml -125 ml 400 ml IBIS RIVERA MD Oct 18, 2019 09:58
--- NOTE | 2019-10-18 10:28 | NUR ---
SW following pt for dc planning. Chart reviewed and discussed with RN. Pt lives at home alone. SW confirmed pt has chair time at [facility], phone: [phone], fax:[phone] on and Sat at 0600. SW will be available as needed.
[2019-10-18 10:35] VITALS: BP 127/74
[2019-10-18] MEDS: guaiFENesin/CODEINE 100mg/10mg 5 ML LIQUID PO PRN (11:09)
[2019-10-18] MEDS: FLUTICASONE 50MCG/NASAL SPRAY 16GM BOTTLE. NS SCH (11:11)
[2019-10-18] MEDS: CETIRIZINE HCL 10 MG TABLET. PO SCH (11:12)
[2019-10-18] MEDS: FOLIC/VIT B COMP W-C (RENAL) TABLET. PO SCH (11:12)
[2019-10-18] MEDS: CARVEDILOL 12.5 MG TABLET. PO SCH ×2 (11:13→17:22)
[2019-10-18] MEDS: PANTOPRAZOLE 40 MG TABLET.DR. PO SCH (11:14)
[2019-10-18] MEDS: FUROSEMIDE 40 MG TABLET. PO SCH ×3 (11:15→17:35)
[2019-10-18] MEDS: amLODIPine BESYLATE 10 MG TABLET PO SCH (11:15)
[2019-10-18] MEDS: INSULIN LISPRO 300 UNITS/3 ML VIAL. SQ SCH ×3 (11:22→17:29)
--- NOTE | 2019-10-18 11:47 | PDOC ---
PULMONARY PROGRESS NOTES Subjective no soa Vitals Vital Signs Date Time Temp Pulse Resp B/P (MAP) Pulse Ox O2 Delivery O2 Flow Rate FiO2 10/18/19 11:15 77 127/74 10/18/19 10:35 98.4 18 93 Room Air 98.4 General: Alert, No acute distress Lungs: Clear Cardiovascular: S1, S2 Abdomen: Soft Neuro Exam: Alert Extremities: No Edema Skin: Warm Labs Laboratory Tests Test 10/17/19 05:42 10/17/19 06:05 10/17/19 12:42 10/17/19 13:00 White Blood Count 8.0 x10^3/uL (4.0-11.0) Red Blood Count 4.51 x10^6/uL (4.30-5.70) Hemoglobin 11.2 g/dL (13.0-17.5) Hematocrit 34.9 % (39.0-53.0) Mean Corpuscular Volume 77 fL (79-100) Mean Corpuscular Hemoglobin 25 pg (25-35) Mean Corpuscular Hemoglobin Concent 32 g/dL (31-37) Red Cell Distribution Width 15.7 % (11.5-14.5) Platelet Count 177 x10^3/uL (140-400) Neutrophils (%) (Auto) 79 % (31-73) Lymphocytes (%) (Auto) 6 % (24-48) Monocytes (%) (Auto) 13 % (0-9) Eosinophils (%) (Auto) 2 % (0-3) Basophils (%) (Auto) 1 % (0-3) Neutrophils # (Auto) 6.3 x10^3/uL (1.8-7.7) Lymphocytes # (Auto) 0.5 x10^3/uL (1.0-4.8) Monocytes # (Auto) 1.0 x10^3/uL (0.0-1.1) Eosinophils # (Auto) 0.1 x10^3/uL (0.0-0.7) Basophils # (Auto) 0.0 x10^3/uL (0.0-0.2) Sodium Level 134 mmol/L (136-145) Potassium Level 4.2 mmol/L (3.5-5.1) Chloride Level 98 mmol/L (98-107) Carbon Dioxide Level 28 mmol/L (21-32) Anion Gap 8 (6-14) Blood Urea Nitrogen 34 mg/dL (8-26) Creatinine 5.2 mg/dL (0.7-1.3) Estimated GFR (Cockcroft-Gault) 14.0 BUN/Creatinine Ratio 7 (6-20) Glucose Level 178 mg/dL (70-99) Calcium Level 9.7 mg/dL (8.5-10.1) Total Bilirubin 0.3 mg/dL (0.2-1.0) Aspartate Amino Transf (AST/SGOT) 23 U/L (15-37) Alanine Aminotransferase (ALT/SGPT) 40 U/L (16-63) Alkaline Phosphatase 59 U/L (46-116) Total Protein 8.7 g/dL (6.4-8.2) Albumin 3.9 g/dL (3.4-5.0) Albumin/Globulin Ratio 0.8 (1.0-1.7) Procalcitonin 0.43 ng/mL (0.00-0.10) Influenza Type A Antigen Positive (NEGATIVE) Influenza Type B Antigen Negative (NEGATIVE) Glucose (Fingerstick) 138 mg/dL (70-99) Lactic Acid Level 0.8 mmol/L (0.4-2.0) Test 10/17/19 16:24 10/17/19 19:46 10/18/19 03:40 10/18/19 07:26 Glucose (Fingerstick) 141 mg/dL (70-99) 218 mg/dL (70-99) 198 mg/dL (70-99) White Blood Count 5.0 x10^3/uL (4.0-11.0) Red Blood Count 4.10 x10^6/uL (4.30-5.70) Hemoglobin 10.3 g/dL (13.0-17.5) Hematocrit 32.2 % (39.0-53.0) Mean Corpuscular Volume 79 fL (79-100) Mean Corpuscular Hemoglobin 25 pg (25-35) Mean Corpuscular Hemoglobin Concent 32 g/dL (31-37) Red Cell Distribution Width 15.9 % (11.5-14.5) Platelet Count 138 x10^3/uL (140-400) Neutrophils (%) (Auto) 50 % (31-73) Lymphocytes (%) (Auto) 29 % (24-48) Monocytes (%) (Auto) 20 % (0-9) Eosinophils (%) (Auto) 1 % (0-3) Basophils (%) (Auto) 1 % (0-3) Neutrophils # (Auto) 2.5 x10^3/uL (1.8-7.7) Lymphocytes # (Auto) 1.4 x10^3/uL (1.0-4.8) Monocytes # (Auto) 1.0 x10^3/uL (0.0-1.1) Eosinophils # (Auto) 0.1 x10^3/uL (0.0-0.7) Basophils # (Auto) 0.0 x10^3/uL (0.0-0.2) Segmented Neutrophils % 52 % (35-66) Band Neutrophils % 2 % (0-9) Lymphocytes % 33 % (24-48) Monocytes % 10 % (0-10) Eosinophils % 3 % (0-5) Nucleated Red Blood Cells 1 Platelet Estimate Adequate (ADEQUATE) Anisocytosis Slight Sodium Level 135 mmol/L (136-145) Potassium Level 4.1 mmol/L (3.5-5.1) Chloride Level 97 mmol/L (98-107) Carbon Dioxide Level 28 mmol/L (21-32) Anion Gap 10 (6-14) Blood Urea Nitrogen 51 mg/dL (8-26) Creatinine 6.6 mg/dL (0.7-1.3) Estimated GFR (Cockcroft-Gault) 10.6 Glucose Level 146 mg/dL (70-99) Calcium Level 9.1 mg/dL (8.5-10.1) Phosphorus Level 4.9 mg/dL (2.6-4.7) Albumin 3.3 g/dL (3.4-5.0) Test 10/18/19 11:10 Glucose (Fingerstick) 201 mg/dL (70-99) Laboratory Tests Test 10/17/19 12:42 10/17/19 13:00 10/17/19 16:24 10/17/19 19:46 Glucose (Fingerstick) 138 mg/dL (70-99) 141 mg/dL (70-99) 218 mg/dL (70-99) Lactic Acid Level 0.8 mmol/L (0.4-2.0) Test 10/18/19 03:40 10/18/19 07:26 10/18/19 11:10 White Blood Count 5.0 x10^3/uL (4.0-11.0) Red Blood Count 4.10 x10^6/uL (4.30-5.70) Hemoglobin 10.3 g/dL (13.0-17.5) Hematocrit 32.2 % (39.0-53.0) Mean Corpuscular Volume 79 fL (79-100) Mean Corpuscular Hemoglobin 25 pg (25-35) Mean Corpuscular Hemoglobin Concent 32 g/dL (31-37) Red Cell Distribution Width 15.9 % (11.5-14.5) Platelet Count 138 x10^3/uL (140-400) Neutrophils (%) (Auto) 50 % (31-73) Lymphocytes (%) (Auto) 29 % (24-48) Monocytes (%) (Auto) 20 % (0-9) Eosinophils (%) (Auto) 1 % (0-3) Basophils (%) (Auto) 1 % (0-3) Neutrophils # (Auto) 2.5 x10^3/uL (1.8-7.7) Lymphocytes # (Auto) 1.4 x10^3/uL (1.0-4.8) Monocytes # (Auto) 1.0 x10^3/uL (0.0-1.1) Eosinophils # (Auto) 0.1 x10^3/uL (0.0-0.7) Basophils # (Auto) 0.0 x10^3/uL (0.0-0.2) Segmented Neutrophils % 52 % (35-66) Band Neutrophils % 2 % (0-9) Lymphocytes % 33 % (24-48) Monocytes % 10 % (0-10) Eosinophils % 3 % (0-5) Nucleated Red Blood Cells 1 Platelet Estimate Adequate (ADEQUATE) Anisocytosis Slight Sodium Level 135 mmol/L (136-145) Potassium Level 4.1 mmol/L (3.5-5.1) Chloride Level 97 mmol/L (98-107) Carbon Dioxide Level 28 mmol/L (21-32) Anion Gap 10 (6-14) Blood Urea Nitrogen 51 mg/dL (8-26) Creatinine 6.6 mg/dL (0.7-1.3) Estimated GFR (Cockcroft-Gault) 10.6 Glucose Level 146 mg/dL (70-99) Calcium Level 9.1 mg/dL (8.5-10.1) Phosphorus Level 4.9 mg/dL (2.6-4.7) Albumin 3.3 g/dL (3.4-5.0) Glucose (Fingerstick) 198 mg/dL (70-99) 201 mg/dL (70-99) Medications Active Scripts Medications Dose Route/Sig Max Daily Dose Days Date Category Fluticasone Propionate Nasal Carpenter (Fluticasone Propionate) 16 Gm Carpenter.susp 2 Carpenter NS DAILY MDD 1 7 01/22/19 Rx [guaiFENesin/CODEINE 100mg/10mg] 5 ML Liquid 10 Ml PO QID MDD 1 7 01/22/19 Rx Tamiflu (Oseltamivir Phosphate) 30 Mg Capsule 30 Mg PO QMWF MDD 1 7 01/22/19 Rx Cetirizine Hcl 10 Mg Tablet 10 Mg PO DAILY MDD 1 7 01/22/19 Rx Renal Caps Softgel (Folic Acid/Vitamin B Comp W-C) 1 Mg Capsule 1 Cap PO DAILY 01/20/19 Reported Famotidine 20 Mg Tablet 20 Mg PO Q48H 09/12/18 Rx Isosorbide Mononitrate Er (Isosorbide Mononitrate) 30 Mg Tab.er.24h 120 Mg PO DAILY 30 09/12/18 Rx Humalog (Insulin Lispro) 100 Unit/1 Ml Insuln.pen 7 Units SQ TIDWMEALS 30 08/11/18 Rx Lantus Solostar (Insulin Glargine,Hum.rec.anlog) 100 Unit/1 Ml Insuln.pen 25 Units SQ QHS 30 08/11/18 Rx Lasix (Furosemide) 40 Mg Tablet 1 Tab PO BID 08/11/18 Rx Doxazosin Mesylate 8 Mg Tablet 8 Mg PO HS 04/23/18 Reported Hydralazine Hcl 50 Mg Tablet 100 Mg PO TID 30 06/17/17 Rx Carvedilol 25 Mg Tablet 1 Tab PO BID 06/13/17 Reported Atorvastatin Calcium 40 Mg Tablet 40 Mg PO HS 06/13/17 Reported Norvasc (Amlodipine Besylate) 10 Mg Tablet 10 Mg PO DAILY 03/16/16 Reported Impression . 1. dyspnea, paroxysmal coughing spell secondary to influenza A. 2. Influenza A. 3. Fever. 4. Immunocompromised, the patient on chronic hemodialysis for chronic kidney disease. 5. History of Escherichia coli sepsis. Plan . 1. We will continue support with Tamiflu. 2. prn Oxygen supplementation. 3. Pain management. 4. Cough suppressor. Afebrile. ok with dc in am or today ZURI WASHINGTON MD Oct 18, 2019 11:47
--- NOTE | 2019-10-18 12:52 | PDOC ---
Infectious Disease Note Subjective: Subjective pt still has gen aches and pains some nausea and diarrhea no apetite Vital Signs: Vital Signs Vital Signs Date Time Temp Pulse Resp B/P (MAP) Pulse Ox O2 Delivery O2 Flow Rate FiO2 10/18/19 11:44 96 Room Air 10/18/19 11:15 77 127/74 10/18/19 10:35 98.4 18 98.4 Medications: Inpatient Meds: Current Medications Medications (Trade) Dose Ordered Sig/Adam Start Time Stop Time Status Last Admin Dose Admin Acetaminophen (Tylenol) 650 mg PRN Q4HRS PRN 10/17/19 11:30 10/17/19 21:10 650 MG Acetaminophen/ Hydrocodone Bitart (Lortab 5/325) 1 tab PRN Q4HRS PRN 10/17/19 12:00 10/18/19 04:48 1 TAB Albuterol/ Ipratropium (Duoneb) 3 ml Q4H 10/17/19 11:30 10/18/19 11:44 3 ML Amlodipine Besylate (Norvasc) 10 mg DAILY 10/17/19 12:00 10/18/19 11:15 10 MG Atorvastatin Calcium (Lipitor) 10 mg QHS 10/18/19 21:00 Carvedilol (Coreg) 25 mg BIDWMEALS 10/17/19 12:00 10/18/19 11:13 25 MG Cetirizine HCl (ZyrTEC) 10 mg DAILY 10/17/19 12:00 10/18/19 11:12 10 MG Clonidine HCl (Catapres) 0.1 mg PRN Q6HRS PRN 10/17/19 11:30 Docusate Sodium (Colace) 100 mg PRN BID PRN 10/17/19 11:30 Doxazosin Mesylate (Cardura) 8 mg QHS 10/17/19 21:00 10/18/19 00:22 DC Famotidine (Pepcid) 20 mg QODAY 10/19/19 09:00 10/18/19 00:22 DC Fentanyl Citrate (Fentanyl 2ml Vial) 50 mcg PRN Q2HR PRN 10/17/19 07:30 10/17/19 11:50 DC Fluticasone Propionate (Flonase) 2 spray DAILY 10/17/19 12:00 10/18/19 11:11 2 SPRAY Furosemide (Lasix) 40 mg [id number] 10/17/19 14:00 10/18/19 11:15 40 MG Guaifenesin (Robitussin) 200 mg PRN Q4HRS PRN 10/17/19 11:30 10/17/19 21:11 200 MG Guaifenesin/ Codeine Phosphate (Robitussin Ac) 5 ml PRN Q6HRS PRN 10/17/19 13:45 UNV Heparin Sodium (Porcine) (Heparin Sodium) 5,000 unit Q8HRS 10/17/19 14:00 10/18/19 04:55 5,000 UNIT Hydralazine HCl (Apresoline) 50 mg TID 10/18/19 09:00 10/18/19 11:15 50 MG Insulin Glargine (Lantus Syringe) 25 unit QHS 10/17/19 21:00 10/17/19 21:21 25 UNIT Insulin Human Lispro (HumaLOG) 7 units TIDWMEALS 10/17/19 12:00 10/18/19 11:22 7 UNITS Isosorbide Mononitrate (Imdur) 120 mg DAILY 10/17/19 12:00 10/18/19 00:22 DC 10/17/19 12:53 120 MG Ondansetron HCl (Zofran) 4 mg PRN Q4HRS PRN 10/17/19 11:30 Oseltamivir Phosphate (Tamiflu) 30 mg QMWF 10/18/19 16:00 10/23/19 15:59 UNV Pantoprazole Sodium (Protonix) 40 mg DAILYAC 10/18/19 07:30 10/18/19 11:14 40 MG Sodium Chloride (Normal Saline Flush) 3 ml QSHIFT PRN 10/17/19 11:30 Vitamin B Complex/ Vitamin C (Lavern-Elham) 1 tab DAILY 10/17/19 12:00 10/18/19 11:12 1 TAB Labs: Lab Laboratory Tests Test 10/17/19 13:00 10/17/19 16:24 10/17/19 19:46 10/18/19 03:40 Lactic Acid Level 0.8 mmol/L (0.4-2.0) Glucose (Fingerstick) 141 mg/dL (70-99) 218 mg/dL (70-99) White Blood Count 5.0 x10^3/uL (4.0-11.0) Red Blood Count 4.10 x10^6/uL (4.30-5.70) Hemoglobin 10.3 g/dL (13.0-17.5) Hematocrit 32.2 % (39.0-53.0) Mean Corpuscular Volume 79 fL (79-100) Mean Corpuscular Hemoglobin 25 pg (25-35) Mean Corpuscular Hemoglobin Concent 32 g/dL (31-37) Red Cell Distribution Width 15.9 % (11.5-14.5) Platelet Count 138 x10^3/uL (140-400) Neutrophils (%) (Auto) 50 % (31-73) Lymphocytes (%) (Auto) 29 % (24-48) Monocytes (%) (Auto) 20 % (0-9) Eosinophils (%) (Auto) 1 % (0-3) Basophils (%) (Auto) 1 % (0-3) Neutrophils # (Auto) 2.5 x10^3/uL (1.8-7.7) Lymphocytes # (Auto) 1.4 x10^3/uL (1.0-4.8) Monocytes # (Auto) 1.0 x10^3/uL (0.0-1.1) Eosinophils # (Auto) 0.1 x10^3/uL (0.0-0.7) Basophils # (Auto) 0.0 x10^3/uL (0.0-0.2) Segmented Neutrophils % 52 % (35-66) Band Neutrophils % 2 % (0-9) Lymphocytes % 33 % (24-48) Monocytes % 10 % (0-10) Eosinophils % 3 % (0-5) Nucleated Red Blood Cells 1 Platelet Estimate Adequate (ADEQUATE) Anisocytosis Slight Sodium Level 135 mmol/L (136-145) Potassium Level 4.1 mmol/L (3.5-5.1) Chloride Level 97 mmol/L (98-107) Carbon Dioxide Level 28 mmol/L (21-32) Anion Gap 10 (6-14) Blood Urea Nitrogen 51 mg/dL (8-26) Creatinine 6.6 mg/dL (0.7-1.3) Estimated GFR (Cockcroft-Gault) 10.6 Glucose Level 146 mg/dL (70-99) Calcium Level 9.1 mg/dL (8.5-10.1) Phosphorus Level 4.9 mg/dL (2.6-4.7) Albumin 3.3 g/dL (3.4-5.0) Test 10/18/19 07:26 10/18/19 11:10 Glucose (Fingerstick) 198 mg/dL (70-99) 201 mg/dL (70-99) Objective: Assessment: 1. Influenza A. 2. Fever, nausea and vomiting. 3. Chronic kidney disease, on hemodialysis. 4. Diabetes Plan: Plan of Care Tamiflu, renally dosed Maintain aspiration precautions Supportive care Droplet isolation IBETH RODRIGUEZ MD Oct 18, 2019 12:52
--- NOTE | 2019-10-18 14:40 | PDOC ---
PROGRESS NOTES Subjective Subjective SEEN IN FOLLOW UP OF ESRD Objective Objective Vital Signs Date Time Temp Pulse Resp B/P (MAP) Pulse Ox O2 Delivery O2 Flow Rate FiO2 10/18/19 11:44 96 Room Air 10/18/19 11:15 77 127/74 10/18/19 10:35 98.4 18 98.4 Intake and Output 10/18/19 07:00 Intake Total 550 ml Output Total 475 ml Balance 75 ml Intake Oral 550 ml Output Urine Total 475 ml Physical Exam Abdomen: Normal bowel sounds, Soft, No tenderness, No hepatosplenomegaly, No masses Heart: Regular rate, Normal S1, Normal S2, No murmurs, Gallops Extremities: No clubbing, No cyanosis, No edema, Normal pulses, No tenderness/swelling General: Alert, Oriented X3, Cooperative, No acute distress Lungs: Clear to auscultation, Normal air movement Psych/Mental Status: Mental status NL, Mood NL Diagnosis RENAL FAILURE: ESRD Assessment Assessment Problems Medical Problems: (1) Anemia in chronic kidney disease (CKD) Status: Acute (2) Chronic kidney disease with end stage renal failure on dialysis Status: Acute (3) Generalized weakness Status: Acute (4) Influenza A Status: Acute Plan Plan of Care FOR DIALYSIS TODAY. CONT RX OF INFLUENZA A. EPOGEN PER HGB Comment Review of Relevant I have reviewed the following items akanksha (where applicable) has been applied. Labs Laboratory Tests Test 10/17/19 05:42 10/17/19 06:05 10/17/19 12:42 10/17/19 13:00 White Blood Count 8.0 x10^3/uL (4.0-11.0) Red Blood Count 4.51 x10^6/uL (4.30-5.70) Hemoglobin 11.2 g/dL (13.0-17.5) Hematocrit 34.9 % (39.0-53.0) Mean Corpuscular Volume 77 fL (79-100) Mean Corpuscular Hemoglobin 25 pg (25-35) Mean Corpuscular Hemoglobin Concent 32 g/dL (31-37) Red Cell Distribution Width 15.7 % (11.5-14.5) Platelet Count 177 x10^3/uL (140-400) Neutrophils (%) (Auto) 79 % (31-73) Lymphocytes (%) (Auto) 6 % (24-48) Monocytes (%) (Auto) 13 % (0-9) Eosinophils (%) (Auto) 2 % (0-3) Basophils (%) (Auto) 1 % (0-3) Neutrophils # (Auto) 6.3 x10^3/uL (1.8-7.7) Lymphocytes # (Auto) 0.5 x10^3/uL (1.0-4.8) Monocytes # (Auto) 1.0 x10^3/uL (0.0-1.1) Eosinophils # (Auto) 0.1 x10^3/uL (0.0-0.7) Basophils # (Auto) 0.0 x10^3/uL (0.0-0.2) Sodium Level 134 mmol/L (136-145) Potassium Level 4.2 mmol/L (3.5-5.1) Chloride Level 98 mmol/L (98-107) Carbon Dioxide Level 28 mmol/L (21-32) Anion Gap 8 (6-14) Blood Urea Nitrogen 34 mg/dL (8-26) Creatinine 5.2 mg/dL (0.7-1.3) Estimated GFR (Cockcroft-Gault) 14.0 BUN/Creatinine Ratio 7 (6-20) Glucose Level 178 mg/dL (70-99) Calcium Level 9.7 mg/dL (8.5-10.1) Total Bilirubin 0.3 mg/dL (0.2-1.0) Aspartate Amino Transf (AST/SGOT) 23 U/L (15-37) Alanine Aminotransferase (ALT/SGPT) 40 U/L (16-63) Alkaline Phosphatase 59 U/L (46-116) Total Protein 8.7 g/dL (6.4-8.2) Albumin 3.9 g/dL (3.4-5.0) Albumin/Globulin Ratio 0.8 (1.0-1.7) Procalcitonin 0.43 ng/mL (0.00-0.10) Influenza Type A Antigen Positive (NEGATIVE) Influenza Type B Antigen Negative (NEGATIVE) Glucose (Fingerstick) 138 mg/dL (70-99) Lactic Acid Level 0.8 mmol/L (0.4-2.0) Test 10/17/19 16:24 10/17/19 19:46 10/18/19 03:40 10/18/19 07:26 Glucose (Fingerstick) 141 mg/dL (70-99) 218 mg/dL (70-99) 198 mg/dL (70-99) White Blood Count 5.0 x10^3/uL (4.0-11.0) Red Blood Count 4.10 x10^6/uL (4.30-5.70) Hemoglobin 10.3 g/dL (13.0-17.5) Hematocrit 32.2 % (39.0-53.0) Mean Corpuscular Volume 79 fL (79-100) Mean Corpuscular Hemoglobin 25 pg (25-35) Mean Corpuscular Hemoglobin Concent 32 g/dL (31-37) Red Cell Distribution Width 15.9 % (11.5-14.5) Platelet Count 138 x10^3/uL (140-400) Neutrophils (%) (Auto) 50 % (31-73) Lymphocytes (%) (Auto) 29 % (24-48) Monocytes (%) (Auto) 20 % (0-9) Eosinophils (%) (Auto) 1 % (0-3) Basophils (%) (Auto) 1 % (0-3) Neutrophils # (Auto) 2.5 x10^3/uL (1.8-7.7) Lymphocytes # (Auto) 1.4 x10^3/uL (1.0-4.8) Monocytes # (Auto) 1.0 x10^3/uL (0.0-1.1) Eosinophils # (Auto) 0.1 x10^3/uL (0.0-0.7) Basophils # (Auto) 0.0 x10^3/uL (0.0-0.2) Segmented Neutrophils % 52 % (35-66) Band Neutrophils % 2 % (0-9) Lymphocytes % 33 % (24-48) Monocytes % 10 % (0-10) Eosinophils % 3 % (0-5) Nucleated Red Blood Cells 1 Platelet Estimate Adequate (ADEQUATE) Anisocytosis Slight Sodium Level 135 mmol/L (136-145) Potassium Level 4.1 mmol/L (3.5-5.1) Chloride Level 97 mmol/L (98-107) Carbon Dioxide Level 28 mmol/L (21-32) Anion Gap 10 (6-14) Blood Urea Nitrogen 51 mg/dL (8-26) Creatinine 6.6 mg/dL (0.7-1.3) Estimated GFR (Cockcroft-Gault) 10.6 Glucose Level 146 mg/dL (70-99) Calcium Level 9.1 mg/dL (8.5-10.1) Phosphorus Level 4.9 mg/dL (2.6-4.7) Albumin 3.3 g/dL (3.4-5.0) Test 10/18/19 11:10 Glucose (Fingerstick) 201 mg/dL (70-99) Laboratory Tests Test 10/17/19 16:24 10/17/19 19:46 10/18/19 03:40 10/18/19 07:26 Glucose (Fingerstick) 141 mg/dL (70-99) 218 mg/dL (70-99) 198 mg/dL (70-99) White Blood Count 5.0 x10^3/uL (4.0-11.0) Red Blood Count 4.10 x10^6/uL (4.30-5.70) Hemoglobin 10.3 g/dL (13.0-17.5) Hematocrit 32.2 % (39.0-53.0) Mean Corpuscular Volume 79 fL (79-100) Mean Corpuscular Hemoglobin 25 pg (25-35) Mean Corpuscular Hemoglobin Concent 32 g/dL (31-37) Red Cell Distribution Width 15.9 % (11.5-14.5) Platelet Count 138 x10^3/uL (140-400) Neutrophils (%) (Auto) 50 % (31-73) Lymphocytes (%) (Auto) 29 % (24-48) Monocytes (%) (Auto) 20 % (0-9) Eosinophils (%) (Auto) 1 % (0-3) Basophils (%) (Auto) 1 % (0-3) Neutrophils # (Auto) 2.5 x10^3/uL (1.8-7.7) Lymphocytes # (Auto) 1.4 x10^3/uL (1.0-4.8) Monocytes # (Auto) 1.0 x10^3/uL (0.0-1.1) Eosinophils # (Auto) 0.1 x10^3/uL (0.0-0.7) Basophils # (Auto) 0.0 x10^3/uL (0.0-0.2) Segmented Neutrophils % 52 % (35-66) Band Neutrophils % 2 % (0-9) Lymphocytes % 33 % (24-48) Monocytes % 10 % (0-10) Eosinophils % 3 % (0-5) Nucleated Red Blood Cells 1 Platelet Estimate Adequate (ADEQUATE) Anisocytosis Slight Sodium Level 135 mmol/L (136-145) Potassium Level 4.1 mmol/L (3.5-5.1) Chloride Level 97 mmol/L (98-107) Carbon Dioxide Level 28 mmol/L (21-32) Anion Gap 10 (6-14) Blood Urea Nitrogen 51 mg/dL (8-26) Creatinine 6.6 mg/dL (0.7-1.3) Estimated GFR (Cockcroft-Gault) 10.6 Glucose Level 146 mg/dL (70-99) Calcium Level 9.1 mg/dL (8.5-10.1) Phosphorus Level 4.9 mg/dL (2.6-4.7) Albumin 3.3 g/dL (3.4-5.0) Test 10/18/19 11:10 Glucose (Fingerstick) 201 mg/dL (70-99) Microbiology 10/17/19 Blood Culture - Preliminary, Resulted NO GROWTH AFTER 1 DAY Medications Current Medications Acetaminophen (Tylenol) 1,000 mg 1X ONCE PO Last administered on 10/17/19at 06:25; Start 10/17/19 at 06:30; Stop 10/17/19 at 06:31; Status DC Fentanyl Citrate (Fentanyl 2ml Vial) 50 mcg 1X ONCE IVP ; Start 10/17/19 at 06:30; Stop 10/17/19 at 06:31; Status DC Albuterol/ Ipratropium (Duoneb) 3 ml 1X ONCE NEB Last administered on 10/17/19at 06:25; Start 10/17/19 at 06:30; Stop 10/17/19 at 06:31; Status DC Oseltamivir Phosphate (Tamiflu) 30 mg 1X ONCE PO Last administered on 10/17/19at 07:22; Start 10/17/19 at 07:30; Stop 10/17/19 at 07:31; Status DC Ondansetron HCl (Zofran) 4 mg 1X ONCE IV Last administered on 10/17/19at 07:21; Start 10/17/19 at 07:15; Stop 10/17/19 at 07:16; Status DC Fentanyl Citrate (Fentanyl 2ml Vial) 50 mcg 1X ONCE IVP Last administered on 10/17/19at 07:22; Start 10/17/19 at 07:15; Stop 10/17/19 at 07:16; Status DC Ondansetron HCl (Zofran) 4 mg PRN Q8HRS PRN IV NAUSEA/VOMITING; Start 10/17/19 at 07:30; Stop 10/17/19 at 14:00; Status DC Fentanyl Citrate (Fentanyl 2ml Vial) 50 mcg PRN Q2HR PRN IV PAIN; Start 10/17/19 at 07:30; Stop 10/17/19 at 11:50; Status DC Oseltamivir Phosphate (Tamiflu) 30 mg QTUTHSA PO ; Start 10/19/19 at 16:00; Stop 10/21/19 at 16:01 Acetaminophen (Tylenol) 650 mg PRN Q6HRS PRN PO FEVER Last administered on 10/17/19at 11:14; Start 10/17/19 at 11:15; Stop 10/17/19 at 11:26; Status DC Sodium Chloride (Normal Saline Flush) 3 ml QSHIFT PRN IV AFTER MEDS AND BLOOD DRAWS; Start 10/17/19 at 11:30 Ondansetron HCl (Zofran) 4 mg PRN Q4HRS PRN IV NAUSEA/VOMITING; Start 10/17/19 at 11:30 Acetaminophen (Tylenol) 650 mg PRN Q4HRS PRN PO TEMP OVER 100.4F OR MILD PAIN Last administered on 10/17/19at 21:10; Start 10/17/19 at 11:30 Clonidine HCl (Catapres) 0.1 mg PRN Q6HRS PRN PO SBP>160 OR DBP>90; Start 10/17/19 at 11:30 Docusate Sodium (Colace) 100 mg PRN BID PRN PO CONSTIPATION; Start 10/17/19 at 11:30 Albuterol/ Ipratropium (Duoneb) 3 ml Q4H NEB Last administered on 10/18/19at 11:44; Start 10/17/19 at 11:30 Guaifenesin (Robitussin) 200 mg PRN Q4HRS PRN PO COUGH Last administered on 10/17/19 21:11; Start 10/17/19 at 11:30 Heparin Sodium (Porcine) (Heparin Sodium) 5,000 unit Q8HRS SQ Last administered on 10/18/19at 04:55; Start 10/17/19 at 14:00 Amlodipine Besylate (Norvasc) 10 mg DAILY PO Last administered on 10/18/19 11:15; Start 10/17/19 at 12:00 Atorvastatin Calcium (Lipitor) 40 mg HS PO Last administered on 10/17/19 21:11; Start 10/17/19 at 21:00; Stop 10/18/19 at 00:21; Status DC Cetirizine HCl (ZyrTEC) 10 mg DAILY PO Last administered on 10/18/19 11:12; Start 10/17/19 at 12:00 Famotidine (Pepcid) 20 mg QODAY PO ; Start 10/19/19 at 09:00; Stop 10/18/19 at 00:22; Status DC Fluticasone Propionate (Flonase) 2 spray DAILY NS Last administered on 10/18/19 11:11; Start 10/17/19 at 12:00 Furosemide (Lasix) 40 mg BID92 PO Last administered on 10/18/19 11:15; Start 10/17/19 at 14:00 Hydralazine HCl (Apresoline) 100 mg TID PO Last administered on 10/17/19at 21:14; Start 10/17/19 at 14:00; Stop 10/18/19 at 00:22; Status DC Insulin Human Lispro (HumaLOG) 7 units TIDWMEALS SQ Last administered on 10/18/19 11:22; Start 10/17/19 at 12:00 Isosorbide Mononitrate (Imdur) 120 mg DAILY PO Last administered on 10/17/19at 12:53; Start 10/17/19 at 12:00; Stop 10/18/19 at 00:22; Status DC Oseltamivir Phosphate (Tamiflu) 30 mg QMWF PO ; Start 10/18/19 at 16:00; Stop 10/23/19 at 15:59; Status UNV Carvedilol (Coreg) 25 mg BIDWMEALS PO Last administered on 10/18/19at 11:13; Start 10/17/19 at 12:00 Doxazosin Mesylate (Cardura) 8 mg QHS PO ; Start 10/17/19 at 21:00; Stop 10/18/19 at 00:22; Status DC Vitamin B Complex/ Vitamin C (Lavern-Elham) 1 tab DAILY PO Last administered on 10/18/19at 11:12; Start 10/17/19 at 12:00 Insulin Glargine (Lantus Syringe) 25 unit QHS SQ Last administered on 10/17/19at 21:21; Start 10/17/19 at 21:00 Guaifenesin/ Codeine Phosphate (Robitussin Ac) 5 ml PRN Q6HRS PRN PO COUGH Last administered on 10/18/19 11:09; Start 10/17/19 at 11:45 Acetaminophen/ Hydrocodone Bitart (Lortab 5/325) 1 tab PRN Q4HRS PRN PO PAIN Last administered on 10/18/19at 04:48; Start 10/17/19 at 12:00 Guaifenesin/ Codeine Phosphate (Robitussin Ac) 5 ml PRN Q6HRS PRN PO COUGH; Start 10/17/19 at 13:45; Status UNV Atorvastatin Calcium (Lipitor) 10 mg QHS PO ; Start 10/18/19 at 21:00 Hydralazine HCl (Apresoline) 50 mg TID PO Last administered on 10/18/19at 11:15; Start 10/18/19 at 09:00 Pantoprazole Sodium (Protonix) 40 mg DAILYAC PO Last administered on 10/18/19at 11:14; Start 10/18/19 at 07:30 Active Scripts Active Fluticasone Propionate Nasal [place] (Fluticasone Propionate) 16 Gm [place].susp 2 [place] NS DAILY MDD 1 7 Days [guaiFENesin/CODEINE 100mg/10mg] 5 ML Liquid 10 Ml PO QID MDD 1 7 Days Tamiflu (Oseltamivir Phosphate) 30 Mg Capsule 30 Mg PO QMWF MDD 1 7 Days Cetirizine Hcl 10 Mg Tablet 10 Mg PO DAILY MDD 1 7 Days Lasix (Furosemide) 40 Mg Tablet 1 Tab PO BID Reported Lantus Solostar (Insulin Glargine,Hum.rec.anlog) 100 Unit/1 Ml Insuln.pen 45 Unit SQ QHS Humalog (Insulin Lispro) 100 Unit/1 Ml Vial 15 Unit SQ TIDWMEALS Omeprazole 20 Mg Capsule.dr 20 Mg PO DAILY Aspirin Ec (Aspirin) 81 Mg Tablet.dr 81 Mg PO DAILY Atorvastatin Calcium 10 Mg Tablet 10 Mg PO HS Hydralazine Hcl 50 Mg Tablet 50 Mg PO TID Renal Caps Softgel (Folic Acid/Vitamin B Comp W-C) 1 Mg Capsule 1 Cap PO DAILY Carvedilol 25 Mg Tablet 1 Tab PO BID Norvasc (Amlodipine Besylate) 10 Mg Tablet 10 Mg PO DAILY Vitals/I & O Vital Sign - Last 24 Hours 10/17/19 10/17/19 10/17/19 10/17/19 15:00 16:07 17:24 17:24 Temp 99.6 99.6 Pulse 76 76 Resp 18 18 B/P (MAP) 101/58 (72) 119/59 Pulse Ox 97 O2 Delivery Room Air Room Air Room Air 10/17/19 10/17/19 10/17/19 10/17/19 18:20 18:24 19:00 20:01 Temp 100.8 100.8 Pulse 93 Resp 19 18 B/P (MAP) 114/56 (75) Pulse Ox 90 O2 Delivery Room Air Room Air Room Air Room Air 10/17/19 10/17/19 10/17/19 10/17/19 20:53 21:14 23:00 23:24 Temp 99.4 99.4 Pulse 93 85 Resp 18 20 B/P (MAP) 114/56 116/57 (76) Pulse Ox 91 O2 Delivery Room Air Room Air Room Air 10/18/19 10/18/19 10/18/19 10/18/19 00:24 03:00 04:48 05:48 Temp 98.7 98.7 Pulse 77 Resp 20 18 20 20 B/P (MAP) 126/59 (81) Pulse Ox 93 O2 Delivery Room Air Room Air Room Air Room Air 10/18/19 10/18/19 10/18/19 10/18/19 07:00 08:00 08:12 10:35 Temp 98.5 98.4 98.5 98.4 Pulse 72 77 Resp 18 18 B/P (MAP) 127/67 (87) 127/74 (91) Pulse Ox 91 94 93 O2 Delivery Room Air Room Air Room Air Room Air 10/18/19 10/18/19 10/18/19 10/18/19 11:13 11:15 11:15 11:44 Pulse 87 77 77 B/P (MAP) 127/67 127/74 127/74 Pulse Ox 96 O2 Delivery Room Air Intake and Output 10/17/19 10/17/19 10/18/19 15:00 23:00 07:00 Intake Total 550 ml Output Total 200 ml 125 ml 150 ml Balance -200 ml -125 ml 400 ml WILBER MACE MD Oct 18, 2019 14:40
[2019-10-18 14:48] VITALS: BP 126/59
[2019-10-18] MEDS: guaiFENesin ORAL 200 MG/10 ML LIQUID. PO PRN ×2 (15:42→20:03)
[2019-10-18] MEDS ORDERED: OSELTAMIVIR 30 MG CAPSULE PO SCH (16:00)
[2019-10-18 19:43] VITALS: BP 123/69
[2019-10-18] MEDS: ATORVASTATIN CALCIUM 10 MG TABLET. PO SCH (20:03)
[2019-10-18] MEDS: INSULIN GLARGINE SYRINGE. SQ SCH (20:17)
[2019-10-18 23:00] VITALS: BP 131/75
[2019-10-19] VITALS (7 sets, daily range): BP systolic 105–138; BP diastolic 60–75
[2019-10-19] MEDS ORDERED: PANTOPRAZOLE 40 MG TABLET.DR. PO ONE (01:30)
[2019-10-19] MEDS: guaiFENesin/CODEINE 100mg/10mg 5 ML LIQUID PO PRN ×3 (01:36→20:32)
[2019-10-19] MEDS: IPRATRPIUM/ALBUTEROL 0.5/2.5MG 3 ML NEBU. NEB SCH ×6 (03:30→23:30)
[2019-10-19] MEDS: HEPARIN for SUB-Q USE 5,000 UNIT/ML VIAL. SQ SCH ×3 (07:08→21:41)
[2019-10-19] MEDS: FLUTICASONE 50MCG/NASAL SPRAY 16GM BOTTLE. NS SCH (08:12)
[2019-10-19] MEDS: INSULIN LISPRO 300 UNITS/3 ML VIAL. SQ SCH ×3 (08:21→18:57)
[2019-10-19] MEDS: FOLIC/VIT B COMP W-C (RENAL) TABLET. PO SCH ×2 (08:26→14:26)
[2019-10-19] MEDS: PANTOPRAZOLE 40 MG TABLET.DR. PO SCH ×2 (08:27→14:27)
[2019-10-19] MEDS: FUROSEMIDE 40 MG TABLET. PO SCH ×3 (08:27→14:30)
[2019-10-19] MEDS: DOCUSATE SODIUM 100 MG CAPSULE. PO PRN ×2 (08:27→14:29)
[2019-10-19] MEDS ORDERED: LIDOCAINE 1% PF 2 ML VIAL. INJ ONE (08:30)
[2019-10-19] MEDS ORDERED: IV NORMAL SALINE 1000ML BAG 1,000 ML IV PRN ×2 (08:30)
[2019-10-19] MEDS ORDERED: DIALYSIS PATIENT. MC PRN ×2 (08:30)
[2019-10-19] MEDS ORDERED: ALBUMIN HUMAN 25% 200 ML IV PRN (08:30)
--- NOTE | 2019-10-19 08:30 | PDOC ---
Infectious Disease Note Subjective Subjective + cough with some phlegm production No fevers ROS ROS per HPI Vital Sign Vital Signs Vital Signs Date Time Temp Pulse Resp B/P (MAP) Pulse Ox O2 Delivery O2 Flow Rate FiO2 10/19/19 03:54 98.4 76 16 126/60 (82) 93 Room Air 98.4 Physical Exam PHYSICAL EXAM GENERAL: Lying down, alert, tired appearance. HEENT: Pupils equal. Oropharynx pink and moist. No lesions. NECK: Supple. LUNGS: Clear to auscultation. CARDIAC: S1, S2. ABDOMEN: Obese, soft, nontender with bowel sounds present. EXTREMITIES: No gross edema or cyanosis. LUE-AV fistula unremarkable. SKIN: Warm to touch without signs of rash. NEUROLOGIC: Alert, answering questions appropriately. Labs Lab Laboratory Tests Test 10/18/19 11:10 10/18/19 16:28 10/18/19 20:07 10/19/19 07:15 Glucose (Fingerstick) 201 mg/dL (70-99) 164 mg/dL (70-99) 172 mg/dL (70-99) 182 mg/dL (70-99) Micro Microbiology 10/17/19 Blood Culture - Preliminary, Resulted NO GROWTH AFTER 1 DAY Objective Assessment Influenza A Fever - resolved N/V CKD on hemodialysis via AV fistula Diabetes h/o E. coli (pansensitive) Plan Plan of Care Tamiflu, renally dosed Maintain aspiration precautions Supportive care Droplet isolation RENE HALL APRN Oct 19, 2019 08:30 IBETH RODRIGUEZ MD Oct 19, 2019 11:12
[2019-10-19] MEDS ORDERED: FAMOTIDINE 20 MG TABLET. PO SCH (09:00)
[2019-10-19] MEDS ORDERED: LIDOCAINE 1% PF 2 ML VIAL. ONE (09:04)
--- NOTE | 2019-10-19 09:09 | PDOC ---
PROGRESS NOTES History of Present Illness History of Present Illness VTE Prophylaxis Ordered VTE Prophylaxis Devices: No VTE Pharmacological Prophylaxi: Yes Assessment/Plan Assessment/Plan Impression: fever viral sepsis Chronic kidney disease with end stage renal failure on dialysis Anemia in chronic kidney disease (CKD) Generalized weakness Influenza A+ ESRD on dialysis TTH S Anemia of ESRD Hypertension, Diabetes type 2 on insulin Myalgias, slow to resolve ADMITTED ID CONSULT TAMIFLU BID RENAL DOSING NEPHROLOGY CONSULT DUONEBS QID BLOOD CULTURE PULM CONSULT HEPARIN DVT PROPHYLAXIS pt/ot 10/19 poor appetite, little intake so far Vitals Vitals Vital Signs Date Time Temp Pulse Resp B/P (MAP) Pulse Ox O2 Delivery O2 Flow Rate FiO2 10/19/19 07:00 97.7 70 16 138/75 (96) 95 Room Air 97.7 Physical Exam Physical Exam GENERAL: Lying down, alert, tired appearance. HEENT: Pupils equal. Oropharynx pink and moist. No lesions. NECK: Supple. LUNGS: Clear to auscultation. CARDIAC: S1, S2. ABDOMEN: Obese, soft, nontender with bowel sounds present. EXTREMITIES: No gross edema or cyanosis. LUE-AV fistula unremarkable. SKIN: Warm to touch without signs of rash. NEUROLOGIC: Alert, answering questions appropriately. General: Alert, Oriented X3, Cooperative, No acute distress Heart: Regular rate, Normal S1, Normal S2, No murmurs, Gallops Lungs: Clear Abdomen: Normal bowel sounds, Soft, No tenderness, No hepatosplenomegaly, No masses Extremities: No clubbing, No cyanosis, No edema, Normal pulses, No tenderness/swelling Labs LABS Laboratory Tests Test 10/18/19 11:10 10/18/19 16:28 10/18/19 20:07 10/19/19 07:15 Glucose (Fingerstick) 201 mg/dL (70-99) 164 mg/dL (70-99) 172 mg/dL (70-99) 182 mg/dL (70-99) Assessment and Plan Assessmemt and Plan Problems Medical Problems: (1) Anemia in chronic kidney disease (CKD) Status: Acute (2) Chronic kidney disease with end stage renal failure on dialysis Status: Acute (3) Generalized weakness Status: Acute (4) Influenza A Status: Acute Comment Review of Relevant I have reviewed the following items akanksha (where applicable) has been applied. Labs Laboratory Tests Test 10/17/19 12:42 10/17/19 13:00 10/17/19 16:24 10/17/19 19:46 Glucose (Fingerstick) 138 mg/dL (70-99) 141 mg/dL (70-99) 218 mg/dL (70-99) Lactic Acid Level 0.8 mmol/L (0.4-2.0) Test 10/18/19 03:40 10/18/19 07:26 10/18/19 11:10 10/18/19 16:28 White Blood Count 5.0 x10^3/uL (4.0-11.0) Red Blood Count 4.10 x10^6/uL (4.30-5.70) Hemoglobin 10.3 g/dL (13.0-17.5) Hematocrit 32.2 % (39.0-53.0) Mean Corpuscular Volume 79 fL (79-100) Mean Corpuscular Hemoglobin 25 pg (25-35) Mean Corpuscular Hemoglobin Concent 32 g/dL (31-37) Red Cell Distribution Width 15.9 % (11.5-14.5) Platelet Count 138 x10^3/uL (140-400) Neutrophils (%) (Auto) 50 % (31-73) Lymphocytes (%) (Auto) 29 % (24-48) Monocytes (%) (Auto) 20 % (0-9) Eosinophils (%) (Auto) 1 % (0-3) Basophils (%) (Auto) 1 % (0-3) Neutrophils # (Auto) 2.5 x10^3/uL (1.8-7.7) Lymphocytes # (Auto) 1.4 x10^3/uL (1.0-4.8) Monocytes # (Auto) 1.0 x10^3/uL (0.0-1.1) Eosinophils # (Auto) 0.1 x10^3/uL (0.0-0.7) Basophils # (Auto) 0.0 x10^3/uL (0.0-0.2) Segmented Neutrophils % 52 % (35-66) Band Neutrophils % 2 % (0-9) Lymphocytes % 33 % (24-48) Monocytes % 10 % (0-10) Eosinophils % 3 % (0-5) Nucleated Red Blood Cells 1 Platelet Estimate Adequate (ADEQUATE) Anisocytosis Slight Sodium Level 135 mmol/L (136-145) Potassium Level 4.1 mmol/L (3.5-5.1) Chloride Level 97 mmol/L (98-107) Carbon Dioxide Level 28 mmol/L (21-32) Anion Gap 10 (6-14) Blood Urea Nitrogen 51 mg/dL (8-26) Creatinine 6.6 mg/dL (0.7-1.3) Estimated GFR (Cockcroft-Gault) 10.6 Glucose Level 146 mg/dL (70-99) Calcium Level 9.1 mg/dL (8.5-10.1) Phosphorus Level 4.9 mg/dL (2.6-4.7) Albumin 3.3 g/dL (3.4-5.0) Glucose (Fingerstick) 198 mg/dL (70-99) 201 mg/dL (70-99) 164 mg/dL (70-99) Test 10/18/19 20:07 10/19/19 07:15 Glucose (Fingerstick) 172 mg/dL (70-99) 182 mg/dL (70-99) Laboratory Tests Test 10/18/19 11:10 10/18/19 16:28 10/18/19 20:07 10/19/19 07:15 Glucose (Fingerstick) 201 mg/dL (70-99) 164 mg/dL (70-99) 172 mg/dL (70-99) 182 mg/dL (70-99) Microbiology 10/17/19 Blood Culture - Preliminary, Resulted NO GROWTH AFTER 1 DAY Medications Current Medications Acetaminophen (Tylenol) 1,000 mg 1X ONCE PO Last administered on 10/17/19at 06:25; Start 10/17/19 at 06:30; Stop 10/17/19 at 06:31; Status DC Fentanyl Citrate (Fentanyl 2ml Vial) 50 mcg 1X ONCE IVP ; Start 10/17/19 at 06:30; Stop 10/17/19 at 06:31; Status DC Albuterol/ Ipratropium (Duoneb) 3 ml 1X ONCE NEB Last administered on 10/17/19at 06:25; Start 10/17/19 at 06:30; Stop 10/17/19 at 06:31; Status DC Oseltamivir Phosphate (Tamiflu) 30 mg 1X ONCE PO Last administered on 10/17/19at 07:22; Start 10/17/19 at 07:30; Stop 10/17/19 at 07:31; Status DC Ondansetron HCl (Zofran) 4 mg 1X ONCE IV Last administered on 10/17/19at 07:21; Start 10/17/19 at 07:15; Stop 10/17/19 at 07:16; Status DC Fentanyl Citrate (Fentanyl 2ml Vial) 50 mcg 1X ONCE IVP Last administered on 10/17/19at 07:22; Start 10/17/19 at 07:15; Stop 10/17/19 at 07:16; Status DC Ondansetron HCl (Zofran) 4 mg PRN Q8HRS PRN IV NAUSEA/VOMITING; Start 10/17/19 at 07:30; Stop 10/17/19 at 14:00; Status DC Fentanyl Citrate (Fentanyl 2ml Vial) 50 mcg PRN Q2HR PRN IV PAIN; Start 10/17/19 at 07:30; Stop 10/17/19 at 11:50; Status DC Oseltamivir Phosphate (Tamiflu) 30 mg QTUTHSA PO ; Start 10/19/19 at 16:00; Stop 10/21/19 at 16:01 Acetaminophen (Tylenol) 650 mg PRN Q6HRS PRN PO FEVER Last administered on 10/17/19at 11:14; Start 10/17/19 at 11:15; Stop 10/17/19 at 11:26; Status DC Sodium Chloride (Normal Saline Flush) 3 ml QSHIFT PRN IV AFTER MEDS AND BLOOD DRAWS; Start 10/17/19 at 11:30 Ondansetron HCl (Zofran) 4 mg PRN Q4HRS PRN IV NAUSEA/VOMITING; Start 10/17/19 at 11:30 Acetaminophen (Tylenol) 650 mg PRN Q4HRS PRN PO TEMP OVER 100.4F OR MILD PAIN Last administered on 10/17/19at 21:10; Start 10/17/19 at 11:30 Clonidine HCl (Catapres) 0.1 mg PRN Q6HRS PRN PO SBP>160 OR DBP>90; Start 10/17/19 at 11:30 Docusate Sodium (Colace) 100 mg PRN BID PRN PO CONSTIPATION Last administered on 10/19/19at 08:27; Start 10/17/19 at 11:30 Albuterol/ Ipratropium (Duoneb) 3 ml Q4H NEB Last administered on 10/18/19 19:41; Start 10/17/19 at 11:30 Guaifenesin (Robitussin) 200 mg PRN Q4HRS PRN PO COUGH, 1st CHOICE Last administered on 10/18/19 20:03; Start 10/17/19 at 11:30 Heparin Sodium (Porcine) (Heparin Sodium) 5,000 unit Q8HRS SQ Last administered on 10/19/19 07:08; Start 10/17/19 at 14:00 Amlodipine Besylate (Norvasc) 10 mg DAILY PO Last administered on 10/18/19 11:15; Start 10/17/19 at 12:00 Atorvastatin Calcium (Lipitor) 40 mg HS PO Last administered on 10/17/19at 2 1:11; Start 10/17/19 at 21:00; Stop 10/18/19 at 00:21; Status DC Cetirizine HCl (ZyrTEC) 10 mg DAILY PO Last administered on 10/18/19 11:12; Start 10/17/19 at 12:00 Famotidine (Pepcid) 20 mg QODAY PO ; Start 10/19/19 at 09:00; Stop 10/18/19 at 00:22; Status DC Fluticasone Propionate (Flonase) 2 spray DAILY NS Last administered on 10/19/19 08:12; Start 10/17/19 at 12:00 Furosemide (Lasix) 40 mg [id number] PO Last administered on 10/19/19 08:27; Start 10/17/19 at 14:00 Hydralazine HCl (Apresoline) 100 mg TID PO Last administered on 10/17/19 21:14; Start 10/17/19 at 14:00; Stop 10/18/19 at 00:22; Status DC Insulin Human Lispro (HumaLOG) 7 units TIDWMEALS SQ Last administered on 10/19/19 08:21; Start 10/17/19 at 12:00 Isosorbide Mononitrate (Imdur) 120 mg DAILY PO Last administered on 10/17/19at 12:53; Start 10/17/19 at 12:00; Stop 10/18/19 at 00:22; Status DC Oseltamivir Phosphate (Tamiflu) 30 mg QMWF PO ; Start 10/18/19 at 16:00; Stop 10/23/19 at 15:59; Status UNV Carvedilol (Coreg) 25 mg BIDWMEALS PO Last administered on 10/18/19 17:22; Start 10/17/19 at 12:00 Doxazosin Mesylate (Cardura) 8 mg QHS PO ; Start 10/17/19 at 21:00; Stop 10/18/19 at 00:22; Status DC Vitamin B Complex/ Vitamin C (Lavern-Elham) 1 tab DAILY PO Last administered on 10/19/19 08:26; Start 10/17/19 at 12:00 Insulin Glargine (Lantus Syringe) 25 unit QHS SQ Last administered on 1 12/19/18at 20:17; Start 10/17/19 at 21:00 Guaifenesin/ Codeine Phosphate (Robitussin Ac) 5 ml PRN Q6HRS PRN PO COUGH, 2nd CHOICE Last administered on 10/19/19at 01:36; Start 10/17/19 at 11:45 Acetaminophen/ Hydrocodone Bitart (Lortab 5/325) 1 tab PRN Q4HRS PRN PO MODERATE TO SEVERE PAIN Last administered on 10/18/19at 20:04; Start 10/17/19 at 12:00 Guaifenesin/ Codeine Phosphate (Robitussin Ac) 5 ml PRN Q6HRS PRN PO COUGH; Start 10/17/19 at 13:45; Status UNV Atorvastatin Calcium (Lipitor) 10 mg QHS PO Last administered on 10/18/19 20:03; Start 10/18/19 at 21:00 Hydralazine HCl (Apresoline) 50 mg TID PO Last administered on 10/18/19 20:03; Start 10/18/19 at 09:00 Pantoprazole Sodium (Protonix) 40 mg DAILYAC PO Last administered on 10/19/19 08:27; Start 10/18/19 at 07:30 Pantoprazole Sodium (Protonix) 40 mg 1X ONCE PO Last administered on 10/19/19at 01:33; Start 10/19/19 at 01:30; Stop 10/19/19 at 01:31; Status DC Lidocaine HCl (Xylocaine-Mpf 1% 2ml Vial) 2 ml STK-MED ONCE .ROUTE ; Start 10/19/19 at 09:04; Stop 10/19/19 at 09:04; Status DC Heparin Sodium (Porcine) (Heparin Sodium) 10,000 unit STK-MED ONCE .ROUTE ; Start 10/19/19 at 09:04; Stop 10/19/19 at 09:04; Status DC Active Scripts Active Fluticasone Propionate Nasal Cardale (Fluticasone Propionate) 16 Gm Cardale.susp 2 Cardale NS DAILY MDD 1 7 Days [guaiFENesin/CODEINE 100mg/10mg] 5 ML Liquid 10 Ml PO QID MDD 1 7 Days Tamiflu (Oseltamivir Phosphate) 30 Mg Capsule 30 Mg PO QMWF MDD 1 7 Days Cetirizine Hcl 10 Mg Tablet 10 Mg PO DAILY MDD 1 7 Days Lasix (Furosemide) 40 Mg Tablet 1 Tab PO BID Reported Lantus Solostar (Insulin Glargine,Hum.rec.anlog) 100 Unit/1 Ml Insuln.pen 45 Unit SQ QHS Humalog (Insulin Lispro) 100 Unit/1 Ml Vial 15 Unit SQ TIDWMEALS Omeprazole 20 Mg Capsule.dr 20 Mg PO DAILY Aspirin Ec (Aspirin) 81 Mg Tablet.dr 81 Mg PO DAILY Atorvastatin Calcium 10 Mg Tablet 10 Mg PO HS Hydralazine Hcl 50 Mg Tablet 50 Mg PO TID Renal Caps Softgel (Folic Acid/Vitamin B Comp W-C) 1 Mg Capsule 1 Cap PO DAILY Carvedilol 25 Mg Tablet 1 Tab PO BID Norvasc (Amlodipine Besylate) 10 Mg Tablet 10 Mg PO DAILY Vitals/I & O Vital Sign - Last 24 Hours 10/18/19 10/18/19 10/18/19 10/18/19 10:35 11:13 11:15 11:15 Temp 98.4 98.4 Pulse 77 87 77 77 Resp 18 B/P (MAP) 127/74 (91) 127/67 127/74 127/74 Pulse Ox 93 O2 Delivery Room Air 10/18/19 10/18/19 10/18/19 10/18/19 11:44 14:48 15:43 15:46 Temp 98.5 98.5 Pulse 73 Resp 18 B/P (MAP) 126/59 (81) Pulse Ox 96 98 98 96 O2 Delivery Room Air Room Air Room Air Room Air 10/18/19 10/18/19 10/18/19 10/18/19 16:43 17:22 19:41 19:43 Temp 98.0 98.0 Pulse 73 70 Resp 16 B/P (MAP) 126/59 123/69 (87) Pulse Ox 96 95 96 O2 Delivery Room Air Room Air Room Air 10/18/19 10/18/19 10/18/19 10/18/19 20:00 20:03 20:04 21:04 B/P (MAP) 123/69 O2 Delivery Room Air Room Air Room Air 10/18/19 10/19/19 10/19/19 23:00 03:54 07:00 Temp 98.2 98.4 97.7 98.2 98.4 97.7 Pulse 75 76 70 Resp 16 16 16 B/P (MAP) 131/75 (93) 126/60 (82) 138/75 (96) Pulse Ox 98 93 95 O2 Delivery Room Air Room Air Room Air Intake and Output 10/18/19 10/18/19 10/19/19 15:00 23:00 07:00 Intake Total 500 ml 1040 ml 480 ml Output Total 200 ml Balance 300 ml 1040 ml 480 ml IBIS RIVERA MD Oct 19, 2019 09:09
[2019-10-19] MEDS: CARVEDILOL 12.5 MG TABLET. PO SCH ×2 (14:28→17:00)
[2019-10-19] MEDS: CETIRIZINE HCL 10 MG TABLET. PO SCH (14:30)
[2019-10-19] MEDS: amLODIPine BESYLATE 10 MG TABLET PO SCH (14:31)
[2019-10-19] MEDS: OSELTAMIVIR 30 MG CAPSULE PO SCH (16:03)
[2019-10-19] MEDS: ACETAMINOPHEN 325 MG TABLET. PO PRN (18:59)
[2019-10-19] MEDS: ATORVASTATIN CALCIUM 10 MG TABLET. PO SCH (20:32)
[2019-10-19] MEDS ORDERED: MAGNESIUM HYDROXIDE 2,400 MG/30 ML ORAL.SUSP. PO ONE (20:45)
[2019-10-19] MEDS ORDERED: BISACODYL 10 MG SUPP.RECT. PR ONE (21:00)
[2019-10-19] MEDS: INSULIN GLARGINE SYRINGE. SQ SCH (21:41)
[2019-10-20] MEDS: IPRATRPIUM/ALBUTEROL 0.5/2.5MG 3 ML NEBU. NEB SCH ×6 (02:41→23:30)
[2019-10-20] MEDS: guaiFENesin/CODEINE 100mg/10mg 5 ML LIQUID PO PRN ×4 (02:47→22:10)
[2019-10-20 03:31] VITALS: BP 136/68
[2019-10-20] MEDS: HEPARIN for SUB-Q USE 5,000 UNIT/ML VIAL. SQ SCH ×3 (05:52→22:00)
[2019-10-20 07:00] VITALS: BP 131/63
[2019-10-20] MEDS: FOLIC/VIT B COMP W-C (RENAL) TABLET. PO SCH (09:07)
[2019-10-20] MEDS: FUROSEMIDE 40 MG TABLET. PO SCH ×2 (09:08→16:05)
[2019-10-20] MEDS: CARVEDILOL 12.5 MG TABLET. PO SCH ×2 (09:08→16:07)
[2019-10-20] MEDS: CETIRIZINE HCL 10 MG TABLET. PO SCH (09:08)
[2019-10-20] MEDS: amLODIPine BESYLATE 10 MG TABLET PO SCH (09:08)
[2019-10-20] MEDS: FLUTICASONE 50MCG/NASAL SPRAY 16GM BOTTLE. NS SCH (09:09)
[2019-10-20] MEDS: PANTOPRAZOLE 40 MG TABLET.DR. PO SCH (09:09)
[2019-10-20] MEDS: AMOXICILLIN/K CLAV 500/125MG TABLET. PO SCH (09:14)
[2019-10-20] MEDS: INSULIN LISPRO 300 UNITS/3 ML VIAL. SQ SCH ×3 (09:30→17:00)
[2019-10-20 10:39] LABS: ALBUMIN 3.5 g/dL (3.4-5.0); CALCIUM 9.1 mg/dL (8.5-10.1); CREATININE 5.9 mg/dL (0.7-1.3); GFR 12.1; PHOSPHORUS 3.4 mg/dL (2.6-4.7); POTASSIUM 3.3 mmol/L (3.5-5.1)
[2019-10-20] MEDS: DOCUSATE SODIUM 100 MG CAPSULE. PO PRN ×2 (10:46→22:10)
--- NOTE | 2019-10-20 10:53 | PDOC ---
Infectious Disease Note Subjective: Subjective + cough with some phlegm production No fevers some chills Vital Signs: Vital Signs Vital Signs Date Time Temp Pulse Resp B/P (MAP) Pulse Ox O2 Delivery O2 Flow Rate FiO2 10/20/19 09:08 75 136/68 10/20/19 07:00 97.7 18 97 Room Air 97.7 Physical Exam: PHYSICAL EXAM GENERAL: Lying down, alert, tired appearance. HEENT: Pupils equal. Oropharynx pink and moist. No lesions. NECK: Supple. LUNGS: Clear to auscultation. CARDIAC: S1, S2. ABDOMEN: Obese, soft, nontender with bowel sounds present. EXTREMITIES: No gross edema or cyanosis. LUE-AV fistula unremarkable. SKIN: Warm to touch without signs of rash. NEUROLOGIC: Alert, answering questions appropriately. Medications: Inpatient Meds: Current Medications Medications (Trade) Dose Ordered Sig/Adam Start Time Stop Time Status Last Admin Dose Admin Acetaminophen (Tylenol) 650 mg PRN Q4HRS PRN 10/17/19 11:30 10/19/19 18:59 650 MG Acetaminophen/ Hydrocodone Bitart (Lortab 5/325) 1 tab PRN Q4HRS PRN 10/17/19 12:00 10/18/19 20:04 1 TAB Albumin Human 200 ml @ 200 mls/hr 1X PRN PRN 10/19/19 08:30 10/19/19 14:29 DC Albuterol/ Ipratropium (Duoneb) 3 ml Q4H 10/17/19 11:30 10/19/19 16:54 3 ML Amlodipine Besylate (Norvasc) 10 mg DAILY 10/17/19 12:00 10/20/19 09:08 10 MG Amoxicillin/ Clavulanate Potassium (Augmentin 500/ 125mg) 1 tab DAILY 10/20/19 09:00 10/20/19 09:14 1 TAB Atorvastatin Calcium (Lipitor) 10 mg QHS 10/18/19 21:00 10/19/19 20:32 10 MG Bisacodyl (Dulcolax Supp) 10 mg 1X ONCE 10/19/19 21:00 10/19/19 21:01 DC Carvedilol (Coreg) 25 mg BIDWMEALS 10/17/19 12:00 10/20/19 09:08 25 MG Cetirizine HCl (ZyrTEC) 10 mg DAILY 10/17/19 12:00 10/20/19 09:08 10 MG Clonidine HCl (Catapres) 0.1 mg PRN Q6HRS PRN 10/17/19 11:30 Docusate Sodium (Colace) 100 mg PRN BID PRN 10/17/19 11:30 10/20/19 10:46 100 MG Doxazosin Mesylate (Cardura) 8 mg QHS 10/17/19 21:00 10/18/19 00:22 DC Famotidine (Pepcid) 20 mg QODAY 10/19/19 09:00 10/18/19 00:22 DC Fentanyl Citrate (Fentanyl 2ml Vial) 50 mcg PRN Q2HR PRN 10/17/19 07:30 10/17/19 11:50 DC Fluticasone Propionate (Flonase) 2 spray DAILY 10/17/19 12:00 10/20/19 09:09 2 SPRAY Furosemide (Lasix) 40 mg BID92 10/17/19 14:00 10/20/19 09:08 40 MG Guaifenesin (Robitussin) 200 mg PRN Q4HRS PRN 10/17/19 11:30 10/18/19 20:03 200 MG Guaifenesin/ Codeine Phosphate (Robitussin Ac) 5 ml PRN Q6HRS PRN 10/17/19 13:45 UNV Heparin Sodium (Porcine) (Heparin Sodium) 2,500 unit 1X PRN PRN 10/19/19 10:30 10/20/19 10:29 DC 10/19/19 10:46 2,500 UNIT Hydralazine HCl (Apresoline) 50 mg TID 10/18/19 09:00 10/20/19 09:07 50 MG Info (PHARMACY MONITORING -- do not chart) 1 each PRN DAILY PRN 10/19/19 08:30 Insulin Glargine (Lantus Syringe) 25 unit QHS 10/17/19 21:00 10/19/19 21:41 25 UNIT Insulin Human Lispro (HumaLOG) 7 units TIDWMEALS 10/17/19 12:00 10/20/19 09:30 7 UNITS Isosorbide Mononitrate (Imdur) 120 mg DAILY 10/17/19 12:00 10/18/19 00:22 DC 10/17/19 12:53 120 MG Lidocaine HCl (Xylocaine-Mpf 1% 2ml Vial) 2 ml 1X ONCE 10/19/19 08:30 10/19/19 09:51 DC 10/19/19 09:10 2 ML Magnesium Hydroxide (Milk Of Magnesia) 2,400 mg 1X ONCE 10/19/19 20:45 10/19/19 20:50 DC Ondansetron HCl (Zofran) 4 mg PRN Q4HRS PRN 10/17/19 11:30 Oseltamivir Phosphate (Tamiflu) 30 mg QMWF 10/18/19 16:00 10/23/19 15:59 UNV Pantoprazole Sodium (Protonix) 40 mg 1X ONCE 10/19/19 01:30 10/19/19 01:31 DC 10/19/19 01:33 40 MG Sodium Chloride 1,000 ml @ 400 mls/hr Q2H30M PRN 10/19/19 08:30 10/19/19 20:29 DC Sodium Chloride (Normal Saline Flush) 3 ml QSHIFT PRN 10/17/19 11:30 Vitamin B Complex/ Vitamin C (Lavern-Elham) 1 tab DAILY 10/17/19 12:00 10/20/19 09:07 1 TAB Labs: Lab Laboratory Tests Test 10/19/19 11:15 10/19/19 13:26 10/19/19 16:47 10/19/19 21:00 Glucose (Fingerstick) 145 mg/dL (70-99) 167 mg/dL (70-99) 126 mg/dL (70-99) 204 mg/dL (70-99) Test 10/20/19 07:55 10/20/19 10:05 Glucose (Fingerstick) 106 mg/dL (70-99) Sodium Level 138 mmol/L (136-145) Potassium Level 3.3 mmol/L (3.5-5.1) Chloride Level 99 mmol/L (98-107) Carbon Dioxide Level 27 mmol/L (21-32) Anion Gap 12 (6-14) Blood Urea Nitrogen 44 mg/dL (8-26) Creatinine 5.9 mg/dL (0.7-1.3) Estimated GFR (Cockcroft-Gault) 12.1 Glucose Level 178 mg/dL (70-99) Calcium Level 9.1 mg/dL (8.5-10.1) Phosphorus Level 3.4 mg/dL (2.6-4.7) Albumin 3.5 g/dL (3.4-5.0) Objective: Assessment: 1. Influenza A. 2. Fever, nausea and vomiting. 3. Chronic kidney disease, on hemodialysis. 4. Diabetes Plan: Plan of Care complete Tamiflu, renally dosed cont augmentin hopefully dc home tomorrow Maintain aspiration precautions Supportive care Droplet isolation IBETH RODRIGUEZ MD Oct 20, 2019 10:53
[2019-10-20 11:00] VITALS: BP 147/69
--- NOTE | 2019-10-20 11:42 | PDOC ---
PROGRESS NOTES History of Present Illness History of Present Illness VTE Prophylaxis Ordered VTE Prophylaxis Devices: No VTE Pharmacological Prophylaxi: Yes Assessment/Plan Assessment/Plan Impression: fever viral sepsis Chronic kidney disease with end stage renal failure on dialysis Anemia in chronic kidney disease (CKD) Generalized weakness Influenza A+ ESRD on dialysis TTH S Anemia of ESRD Hypertension, Diabetes type 2 on insulin Myalgias, slow to resolve ADMITTED ID CONSULT TAMIFLU BID RENAL DOSING NEPHROLOGY CONSULT DUONEBS QID BLOOD CULTURE PULM CONSULT HEPARIN DVT PROPHYLAXIS pt/ot 10/19 poor appetite, little intake so far 10/20 still weak, only fair intake Vitals Vitals Vital Signs Date Time Temp Pulse Resp B/P (MAP) Pulse Ox O2 Delivery O2 Flow Rate FiO2 10/20/19 09:08 75 136/68 10/20/19 07:00 97.7 18 97 Room Air 97.7 Physical Exam Physical Exam GENERAL: Lying down, alert, tired appearance. HEENT: Pupils equal. Oropharynx pink and moist. No lesions. NECK: Supple. LUNGS: Clear to auscultation. CARDIAC: S1, S2. ABDOMEN: Obese, soft, nontender with bowel sounds present. EXTREMITIES: No gross edema or cyanosis. LUE-AV fistula unremarkable. SKIN: Warm to touch without signs of rash. NEUROLOGIC: Alert, answering questions appropriately. General: Alert, Oriented X3, Cooperative, No acute distress Heart: Regular rate, Normal S1, Normal S2, No murmurs, Gallops Lungs: Clear Abdomen: Normal bowel sounds, Soft, No tenderness, No hepatosplenomegaly, No masses Extremities: No clubbing, No cyanosis, No edema, Normal pulses, No tenderness/swelling Labs LABS SPEC #: [id number] MAYNOR: 10/17/19 STATUS: RES REQ #: [id number] RECD: 10/17/[address]: IBIS RIVERA MD SOURCE: BLOOD ENTR: 10/17/[address] [facility] DR: ISABEL RODRIGUEZ MD [facility]: TERE SHINE MD,WILBER Cheney MD ORDERED: BCULT Procedure Result BLOOD CULTURE Preliminary NO GROWTH AFTER 3 DAYS Laboratory Tests Test 10/19/19 13:26 10/19/19 16:47 10/19/19 21:00 10/20/19 07:55 Glucose (Fingerstick) 167 mg/dL (70-99) 126 mg/dL (70-99) 204 mg/dL (70-99) 106 mg/dL (70-99) Test 10/20/19 10:05 10/20/19 10:54 Sodium Level 138 mmol/L (136-145) Potassium Level 3.3 mmol/L (3.5-5.1) Chloride Level 99 mmol/L (98-107) Carbon Dioxide Level 27 mmol/L (21-32) Anion Gap 12 (6-14) Blood Urea Nitrogen 44 mg/dL (8-26) Creatinine 5.9 mg/dL (0.7-1.3) Estimated GFR (Cockcroft-Gault) 12.1 Glucose Level 178 mg/dL (70-99) Calcium Level 9.1 mg/dL (8.5-10.1) Phosphorus Level 3.4 mg/dL (2.6-4.7) Albumin 3.5 g/dL (3.4-5.0) Glucose (Fingerstick) 168 mg/dL (70-99) Assessment and Plan Assessmemt and Plan Problems Medical Problems: (1) Anemia in chronic kidney disease (CKD) Status: Acute (2) Chronic kidney disease with end stage renal failure on dialysis Status: Acute (3) Generalized weakness Status: Acute (4) Influenza A Status: Acute Comment Review of Relevant I have reviewed the following items akanksha (where applicable) has been applied. Labs Laboratory Tests Test 10/18/19 16:28 10/18/19 20:07 10/19/19 07:15 10/19/19 11:15 Glucose (Fingerstick) 164 mg/dL (70-99) 172 mg/dL (70-99) 182 mg/dL (70-99) 145 mg/dL (70-99) Test 10/19/19 13:26 10/19/19 16:47 10/19/19 21:00 10/20/19 07:55 Glucose (Fingerstick) 167 mg/dL (70-99) 126 mg/dL (70-99) 204 mg/dL (70-99) 106 mg/dL (70-99) Test 10/20/19 10:05 10/20/19 10:54 Sodium Level 138 mmol/L (136-145) Potassium Level 3.3 mmol/L (3.5-5.1) Chloride Level 99 mmol/L (98-107) Carbon Dioxide Level 27 mmol/L (21-32) Anion Gap 12 (6-14) Blood Urea Nitrogen 44 mg/dL (8-26) Creatinine 5.9 mg/dL (0.7-1.3) Estimated GFR (Cockcroft-Gault) 12.1 Glucose Level 178 mg/dL (70-99) Calcium Level 9.1 mg/dL (8.5-10.1) Phosphorus Level 3.4 mg/dL (2.6-4.7) Albumin 3.5 g/dL (3.4-5.0) Glucose (Fingerstick) 168 mg/dL (70-99) Laboratory Tests Test 10/19/19 13:26 10/19/19 16:47 10/19/19 21:00 10/20/19 07:55 Glucose (Fingerstick) 167 mg/dL (70-99) 126 mg/dL (70-99) 204 mg/dL (70-99) 106 mg/dL (70-99) Test 10/20/19 10:05 10/20/19 10:54 Sodium Level 138 mmol/L (136-145) Potassium Level 3.3 mmol/L (3.5-5.1) Chloride Level 99 mmol/L (98-107) Carbon Dioxide Level 27 mmol/L (21-32) Anion Gap 12 (6-14) Blood Urea Nitrogen 44 mg/dL (8-26) Creatinine 5.9 mg/dL (0.7-1.3) Estimated GFR (Cockcroft-Gault) 12.1 Glucose Level 178 mg/dL (70-99) Calcium Level 9.1 mg/dL (8.5-10.1) Phosphorus Level 3.4 mg/dL (2.6-4.7) Albumin 3.5 g/dL (3.4-5.0) Glucose (Fingerstick) 168 mg/dL (70-99) Microbiology 10/17/19 Blood Culture - Preliminary, Resulted NO GROWTH AFTER 2 DAYS Medications Current Medications Acetaminophen (Tylenol) 1,000 mg 1X ONCE PO Last administered on 10/17/19at 06:25; Start 10/17/19 at 06:30; Stop 10/17/19 at 06:31; Status DC Fentanyl Citrate (Fentanyl 2ml Vial) 50 mcg 1X ONCE IVP ; Start 10/17/19 at 06:30; Stop 10/17/19 at 06:31; Status DC Albuterol/ Ipratropium (Duoneb) 3 ml 1X ONCE NEB Last administered on 10/17/19at 06:25; Start 10/17/19 at 06:30; Stop 10/17/19 at 06:31; Status DC Oseltamivir Phosphate (Tamiflu) 30 mg 1X ONCE PO Last administered on 10/17/19 07:22; Start 10/17/19 at 07:30; Stop 10/17/19 at 07:31; Status DC Ondansetron HCl (Zofran) 4 mg 1X ONCE IV Last administered on 10/17/19at 07:21; Start 10/17/19 at 07:15; Stop 10/17/19 at 07:16; Status DC Fentanyl Citrate (Fentanyl 2ml Vial) 50 mcg 1X ONCE IVP Last administered on 10/17/19at 07:22; Start 10/17/19 at 07:15; Stop 10/17/19 at 07:16; Status DC Ondansetron HCl (Zofran) 4 mg PRN Q8HRS PRN IV NAUSEA/VOMITING; Start 10/17/19 at 07:30; Stop 10/17/19 at 14:00; Status DC Fentanyl Citrate (Fentanyl 2ml Vial) 50 mcg PRN Q2HR PRN IV PAIN; Start 10/17/19 at 07:30; Stop 10/17/19 at 11:50; Status DC Oseltamivir Phosphate (Tamiflu) 30 mg QTUTHSA PO Last administered on 10/19/19 16:03; Start 10/19/19 at 16:00; Stop 10/21/19 at 16:01 Acetaminophen (Tylenol) 650 mg PRN Q6HRS PRN PO FEVER Last administered on 10/17/19at 11:14; Start 10/17/19 at 11:15; Stop 10/17/19 at 11:26; Status DC Sodium Chloride (Normal Saline Flush) 3 ml QSHIFT PRN IV AFTER MEDS AND BLOOD DRAWS; Start 10/17/19 at 11:30 Ondansetron HCl (Zofran) 4 mg PRN Q4HRS PRN IV NAUSEA/VOMITING; Start 10/17/19 at 11:30 Acetaminophen (Tylenol) 650 mg PRN Q4HRS PRN PO TEMP OVER 100.4F OR MILD PAIN Last administered on 10/19/19 18:59; Start 10/17/19 at 11:30 Clonidine HCl (Catapres) 0.1 mg PRN Q6HRS PRN PO SBP>160 OR DBP>90; Start 10/17/19 at 11:30 Docusate Sodium (Colace) 100 mg PRN BID PRN PO CONSTIPATION Last administered on 10/20/19 10:46; Start 10/17/19 at 11:30 Albuterol/ Ipratropium (Duoneb) 3 ml Q4H NEB Last administered on 10/19/19 16:54; Start 10/17/19 at 11:30 Guaifenesin (Robitussin) 200 mg PRN Q4HRS PRN PO COUGH, 1st CHOICE Last administered on 10/18/19 20:03; Start 10/17/19 at 11:30 Heparin Sodium (Porcine) (Heparin Sodium) 5,000 unit Q8HRS SQ Last administered on 10/19/19 21:41; Start 10/17/19 at 14:00 Amlodipine Besylate (Norvasc) 10 mg DAILY PO Last administered on 10/20/19 09:08; Start 10/17/19 at 12:00 Atorvastatin Calcium (Lipitor) 40 mg HS PO Last administered on 10/17/19at 21:11; Start 10/17/19 at 21:00; Stop 10/18/19 at 00:21; Status DC Cetirizine HCl (ZyrTEC) 10 mg DAILY PO Last administered on 10/20/19 09:08; Start 10/17/19 at 12:00 Famotidine (Pepcid) 20 mg QODAY PO ; Start 10/19/19 at 09:00; Stop 10/18/19 at 00:22; Status DC Fluticasone Propionate (Flonase) 2 spray DAILY NS Last administered on 10/20/19 09:09; Start 10/17/19 at 12:00 Furosemide (Lasix) 40 mg BID92 PO Last administered on 10/20/19 09:08; Start 10/17/19 at 14:00 Hydralazine HCl (Apresoline) 100 mg TID PO Last administered on 10/17/19 21:1 4; Start 10/17/19 at 14:00; Stop 10/18/19 at 00:22; Status DC Insulin Human Lispro (HumaLOG) 7 units TIDWMEALS SQ Last administered on 10/20/19 09:30; Start 10/17/19 at 12:00 Isosorbide Mononitrate (Imdur) 120 mg DAILY PO Last administered on 10/17/19at 12:53; Start 10/17/19 at 12:00; Stop 10/18/19 at 00:22; Status DC Oseltamivir Phosphate (Tamiflu) 30 mg QMWF PO ; Start 10/18/19 at 16:00; Stop 10/23/19 at 15:59; Status UNV Carvedilol (Coreg) 25 mg BIDWMEALS PO Last administered on 10/20/19 09:08; Start 10/17/19 at 12:00 Doxazosin Mesylate (Cardura) 8 mg QHS PO ; Start 10/17/19 at 21:00; Stop 10/18/19 at 00:22; Status DC Vitamin B Complex/ Vitamin C ([place]ham) 1 tab DAILY PO Last administered on 10/20/19 09:07; Start 10/17/19 at 12:00 Insulin Glargine (Lantus Syringe) 25 unit QHS SQ Last administered on 10/19/19at 21:41; Start 10/17/19 at 21:00 Guaifenesin/ Codeine Phosphate (Robitussin Ac) 5 ml PRN Q6HRS PRN PO COUGH, 2nd CHOICE Last administered on 10/20/19 10:41; Start 10/17/19 at 11:45 Acetaminophen/ Hydrocodone Bitart (Lortab 5/325) 1 tab PRN Q4HRS PRN PO MODERATE TO SEVERE PAIN Last administered on 10/18/19 20:04; Start 10/17/19 at 12:00 Guaifenesin/ Codeine Phosphate (Robitussin Ac) 5 ml PRN Q6HRS PRN PO COUGH; Start 10/17/19 at 13:45; Status UNV Atorvastatin Calcium (Lipitor) 10 mg QHS PO Last administered on 10/19/19at 20:32; Start 10/18/19 at 21:00 Hydralazine HCl (Apresoline) 50 mg TID PO Last administered on 10/20/19 09:07; Start 10/18/19 at 09:00 Pantoprazole Sodium (Protonix) 40 mg DAILYAC PO Last administered on 10/20/19 09:09; Start 10/18/19 at 07:30 Pantoprazole Sodium (Protonix) 40 mg 1X ONCE PO Last administered on 10/19/19at 01:33; Start 10/19/19 at 01:30; Stop 10/19/19 at 01:31; Status DC Lidocaine HCl (Xylocaine-Mpf 1% 2ml Vial) 2 ml STK-MED ONCE .ROUTE ; Start 10/19/19 at 09:04; Stop 10/19/19 at 09:04; Status DC Heparin Sodium (Porcine) (Heparin Sodium) 10,000 unit STK-MED ONCE .ROUTE ; Start 10/19/19 at 09:04; Stop 10/19/19 at 09:04; Status DC Heparin Sodium (Porcine) (Heparin Sodium) 2,500 unit 1X PRN PRN INT CAT FOR UFH LEVEL LESS THAN 0.2 Last administered on 10/19/19at 09:12; Start 10/19/19 at 08:30; Stop 10/20/19 at 08:29; Status DC Heparin Sodium (Porcine) (Heparin Sodium) 2,500 unit 1X PRN PRN INT CAT FOR UFH LEVEL LESS THAN 0.2 Last administered on 10/19/19at 10:46; Start 10/19/19 at 10:30; Stop 10/20/19 at 10:29; Status DC Sodium Chloride 1,000 ml @ 1,000 mls/hr Q1H PRN IV hypotension; Start 10/19/19 at 08:30; Stop 10/19/19 at 14:29; Status DC Albumin Human 200 ml @ 200 mls/hr 1X PRN PRN IV Hypotension; Start 10/19/19 at 08:30; Stop 10/19/19 at 14:29; Status DC Sodium Chloride 1,000 ml @ 400 mls/hr Q2H30M PRN IV PATENCY; Start 10/19/19 at 08:30; Stop 10/19/19 at 20:29; Status DC Info (PHARMACY MONITORING -- do not chart) 1 each PRN DAILY PRN MC SEE COMMENTS; Start 10/19/19 at 08:30 Info (PHARMACY MONITORING -- do not chart) 1 each PRN DAILY PRN MC SEE COMMENTS; Start 10/19/19 at 08:30 Lidocaine HCl (Xylocaine-Mpf 1% 2ml Vial) 2 ml 1X ONCE INJ Last administered on 10/19/19at 09:10; Start 10/19/19 at 08:30; Stop 10/19/19 at 09:51; Status DC Amoxicillin/ Clavulanate Potassium (Augmentin 500/ 125mg) 1 tab DAILY PO Last administered on 10/20/19at 09:14; Start 10/20/19 at 09:00 Magnesium Hydroxide (Milk Of Magnesia) 2,400 mg 1X ONCE PO ; Start 10/19/19 at 20:45; Stop 10/19/19 at 20:50; Status DC Bisacodyl (Dulcolax Supp) 10 mg 1X ONCE PA ; Start 10/19/19 at 21:00; Stop 10/19/19 at 21:01; Status DC Active Scripts Active Fluticasone Propionate Nasal [place] (Fluticasone Propionate) 16 Gm [place].susp 2 [place] NS DAILY MDD 1 7 Days [guaiFENesin/CODEINE 100mg/10mg] 5 ML Liquid 10 Ml PO QID MDD 1 7 Days Tamiflu (Oseltamivir Phosphate) 30 Mg Capsule 30 Mg PO QMWF MDD 1 7 Days Cetirizine Hcl 10 Mg Tablet 10 Mg PO DAILY MDD 1 7 Days Lasix (Furosemide) 40 Mg Tablet 1 Tab PO BID Reported Lantus Solostar (Insulin Glargine,Hum.rec.anlog) 100 Unit/1 Ml Insuln.pen 45 Unit SQ QHS Humalog (Insulin Lispro) 100 Unit/1 Ml Vial 15 Unit SQ TIDWMEALS Omeprazole 20 Mg Capsule.dr 20 Mg PO DAILY Aspirin Ec (Aspirin) 81 Mg Tablet.dr 81 Mg PO DAILY Atorvastatin Calcium 10 Mg Tablet 10 Mg PO HS Hydralazine Hcl 50 Mg Tablet 50 Mg PO TID Renal Caps Softgel (Folic Acid/Vitamin B Comp W-C) 1 Mg Capsule 1 Cap PO DAILY Carvedilol 25 Mg Tablet 1 Tab PO BID Norvasc (Amlodipine Besylate) 10 Mg Tablet 10 Mg PO DAILY Vitals/I & O Vital Sign - Last 24 Hours 10/19/19 10/19/19 10/19/19 10/19/19 13:29 14:00 14:28 14:31 Temp 97.9 97.9 Pulse 70 70 70 70 Resp 16 B/P (MAP) 125/65 (85) 125/65 125/65 125/65 Pulse Ox 94 O2 Delivery Room Air 10/19/19 10/19/19 10/19/19 10/19/19 14:33 15:00 16:58 19:05 Temp 99.0 98.1 99.0 98.1 Pulse 70 72 71 Resp 16 18 B/P (MAP) 125/65 123/63 (83) 105/63 (77) Pulse Ox 93 98 95 O2 Delivery Room Air Room Air Room Air 10/19/19 10/19/19 10/19/19 10/20/19 20:05 20:35 23:56 03:31 Temp 98.4 98.3 98.4 98.3 Pulse 71 73 75 Resp 18 18 B/P (MAP) 105/63 123/65 (84) 136/68 (90) Pulse Ox 96 94 O2 Delivery Room Air Room Air Room Air 10/20/19 10/20/19 10/20/19 10/20/19 07:00 09:07 09:08 09:08 Temp 97.7 97.7 Pulse 72 75 75 75 Resp 18 B/P (MAP) 131/63 (85) 136/68 136/68 136/68 Pulse Ox 97 O2 Delivery Room Air Intake and Output 10/19/19 10/19/19 10/20/19 15:00 23:00 07:00 Intake Total 400 ml 300 ml 400 ml Output Total 200 ml 150 ml Balance 200 ml 300 ml 250 ml IBIS RIVERA MD Oct 20, 2019 11:42
[2019-10-20] MEDS: POLYETHYLENE GLYCOL 3350 17 GM PACKET. PO PRN (13:16)
[2019-10-20 15:00] VITALS: BP 134/65
--- NOTE | 2019-10-20 15:20 | PDOC ---
SUBJECTIVE ROS No concerns this am OBJECTIVE Vital Signs Vital Signs Date Time Temp Pulse Resp B/P (MAP) Pulse Ox O2 Delivery O2 Flow Rate FiO2 10/20/19 11:00 98.1 72 20 147/69 (95) 93 Room Air 98.1 I & 0 Intake and Output 10/20/19 07:00 Intake Total 1100 ml Output Total 350 ml Balance 750 ml Intake Oral 1100 ml Output Urine Total 350 ml PHYSICAL EXAM Physical Exam GENERAL: NAD HEENT: Pupils equal. Oropharynx pink and moist. No lesions. NECK: Supple. LUNGS: Clear to auscultation. CARDIAC: S1, S2. ABDOMEN: Obese, soft, nontender with bowel sounds present. EXTREMITIES: No gross edema or cyanosis. LUE-AV fistula unremarkable. SKIN: Warm to touch without signs of rash. NEUROLOGIC: Alert, answering questions appropriately. Gu no talley DIAGNOSIS/ASSESSMENT Assessment & Plan ESRD -On HD TTS under Dr Pelaez Last HD 10/19. scheduled for tomorrow Influenza A- On Tamiflu HypoKalemia- mild, replace as needed Fever, nausea and vomiting. Diabetes COMMENT/RELEVANT DATA Meds Current Medications Medications (Trade) Dose Ordered Sig/Adam Start Time Stop Time Status Last Admin Dose Admin Acetaminophen (Tylenol) 650 mg PRN Q4HRS PRN 10/17/19 11:30 10/19/19 18:59 650 MG Acetaminophen/ Hydrocodone Bitart (Lortab 5/325) 1 tab PRN Q4HRS PRN 10/17/19 12:00 10/18/19 20:04 1 TAB Albumin Human 200 ml @ 200 mls/hr 1X PRN PRN 10/19/19 08:30 10/19/19 14:29 DC Albuterol/ Ipratropium (Duoneb) 3 ml Q4H 10/17/19 11:30 10/19/19 16:54 3 ML Amlodipine Besylate (Norvasc) 10 mg DAILY 10/17/19 12:00 10/20/19 09:08 10 MG Amoxicillin/ Clavulanate Potassium (Augmentin 500/ 125mg) 1 tab DAILY 10/20/19 09:00 10/20/19 09:14 1 TAB Atorvastatin Calcium (Lipitor) 10 mg QHS 10/18/19 21:00 10/19/19 20:32 10 MG Bisacodyl (Dulcolax Supp) 10 mg 1X ONCE 10/19/19 21:00 10/19/19 21:01 DC Carvedilol (Coreg) 25 mg BIDWMEALS 10/17/19 12:00 10/20/19 09:08 25 MG Cetirizine HCl (ZyrTEC) 10 mg DAILY 10/17/19 12:00 10/20/19 09:08 10 MG Clonidine HCl (Catapres) 0.1 mg PRN Q6HRS PRN 10/17/19 11:30 Docusate Sodium (Colace) 100 mg PRN BID PRN 10/17/19 11:30 10/20/19 10:46 100 MG Doxazosin Mesylate (Cardura) 8 mg QHS 10/17/19 21:00 10/18/19 00:22 DC Famotidine (Pepcid) 20 mg QODAY 10/19/19 09:00 10/18/19 00:22 DC Fentanyl Citrate (Fentanyl 2ml Vial) 50 mcg PRN Q2HR PRN 10/17/19 07:30 10/17/19 11:50 DC Fluticasone Propionate (Flonase) 2 spray DAILY 10/17/19 12:00 10/20/19 09:09 2 SPRAY Furosemide (Lasix) 40 mg BID92 10/17/19 14:00 10/20/19 09:08 40 MG Guaifenesin (Robitussin) 200 mg PRN Q4HRS PRN 10/17/19 11:30 10/18/19 20:03 200 MG Guaifenesin/ Codeine Phosphate (Robitussin Ac) 5 ml PRN Q6HRS PRN 10/17/19 13:45 UNV Heparin Sodium (Porcine) (Heparin Sodium) 2,500 unit 1X PRN PRN 10/19/19 10:30 10/20/19 10:29 DC 10/19/19 10:46 2,500 UNIT Hydralazine HCl (Apresoline) 50 mg TID 10/18/19 09:00 10/20/19 09:07 50 MG Info (PHARMACY MONITORING -- do not chart) 1 each PRN DAILY PRN 10/19/19 08:30 Insulin Glargine (Lantus Syringe) 25 unit QHS 10/17/19 21:00 10/19/19 21:41 25 UNIT Insulin Human Lispro (HumaLOG) 7 units TIDWMEALS 10/17/19 12:00 10/20/19 09:30 7 UNITS Isosorbide Mononitrate (Imdur) 120 mg DAILY 10/17/19 12:00 10/18/19 00:22 DC 10/17/19 12:53 120 MG Lidocaine HCl (Xylocaine-Mpf 1% 2ml Vial) 2 ml 1X ONCE 10/19/19 08:30 10/19/19 09:51 DC 10/19/19 09:10 2 ML Magnesium Hydroxide (Milk Of Magnesia) 2,400 mg 1X ONCE 10/19/19 20:45 10/19/19 20:50 DC Ondansetron HCl (Zofran) 4 mg PRN Q4HRS PRN 10/17/19 11:30 Oseltamivir Phosphate (Tamiflu) 30 mg QMWF 10/18/19 16:00 10/23/19 15:59 UNV Pantoprazole Sodium (Protonix) 40 mg 1X ONCE 10/19/19 01:30 10/19/19 01:31 DC 10/19/19 01:33 40 MG Polyethylene Glycol (miraLAX PACKET) 17 gm PRN DAILY PRN 10/20/19 13:00 10/20/19 13:16 17 GM Sodium Chloride 1,000 ml @ 400 mls/hr Q2H30M PRN 10/19/19 08:30 10/19/19 20:29 DC Sodium Chloride (Normal Saline Flush) 3 ml QSHIFT PRN 10/17/19 11:30 Vitamin B Complex/ Vitamin C (Lavern-Elham) 1 tab DAILY 10/17/19 12:00 10/20/19 09:07 1 TAB Lab Laboratory Tests Test 10/19/19 16:47 10/19/19 21:00 10/20/19 07:55 10/20/19 10:05 Glucose (Fingerstick) 126 mg/dL (70-99) 204 mg/dL (70-99) 106 mg/dL (70-99) Sodium Level 138 mmol/L (136-145) Potassium Level 3.3 mmol/L (3.5-5.1) Chloride Level 99 mmol/L (98-107) Carbon Dioxide Level 27 mmol/L (21-32) Anion Gap 12 (6-14) Blood Urea Nitrogen 44 mg/dL (8-26) Creatinine 5.9 mg/dL (0.7-1.3) Estimated GFR (Cockcroft-Gault) 12.1 Glucose Level 178 mg/dL (70-99) Calcium Level 9.1 mg/dL (8.5-10.1) Phosphorus Level 3.4 mg/dL (2.6-4.7) Albumin 3.5 g/dL (3.4-5.0) Test 10/20/19 10:54 Glucose (Fingerstick) 168 mg/dL (70-99) Results All relevant outside records, renal labs, imaging studies, telemetry/EKG's were reviewed. LEYDI IBARRA MD Oct 20, 2019 15:19
[2019-10-20 19:08] VITALS: BP 133/73
[2019-10-20] MEDS: INSULIN GLARGINE SYRINGE. SQ SCH (21:00)
[2019-10-20] MEDS: ATORVASTATIN CALCIUM 10 MG TABLET. PO SCH (22:04)
[2019-10-20] MEDS: ACETAMINOPHEN 325 MG TABLET. PO PRN (22:10)
[2019-10-20 23:48] VITALS: BP 135/73
[2019-10-21] MEDS: IPRATRPIUM/ALBUTEROL 0.5/2.5MG 3 ML NEBU. NEB SCH ×6 (03:30→23:30)
--- NOTE | 2019-10-21 04:46 | NUR ---
PT REFUSING THE MAJORITY OF BREATHING TREATMENTS ORDERED AT NIGHT
[2019-10-21] MEDS: HEPARIN for SUB-Q USE 5,000 UNIT/ML VIAL. SQ SCH ×3 (06:00→21:19)
[2019-10-21 07:00] VITALS: BP 135/70
[2019-10-21] MEDS: PANTOPRAZOLE 40 MG TABLET.DR. PO SCH (07:30)
[2019-10-21] MEDS: INSULIN LISPRO 300 UNITS/3 ML VIAL. SQ SCH ×3 (08:00→16:57)
--- NOTE | 2019-10-21 09:06 | PDOC ---
PROGRESS NOTES Chief Complaint Chief Complaint A/P: Fever Viral sepsis Chronic kidney disease with end stage renal failure on dialysis Anemia in chronic kidney disease (CKD) Generalized weakness Influenza A+ ESRD on dialysis TTH S Anemia of ESRD Hypertension, Diabetes type 2 on insulin Myalgias, slow to resolve ADMITTED ID CONSULT TAMIFLU BID RENAL DOSING NEPHROLOGY CONSULT SASHA QID BLOOD CULTURE PULM CONSULT HEPARIN DVT PROPHYLAXIS pt/ot History of Present Illness History of Present Illness Mr Ellsworth is a 54yo M w/ PMHx ESRD on hemodialysis; peripheral neuropathy, type 2 diabetes, coronary artery disease, congestive heart failure, previous myocardial infarction, hyperlipidemia, hypertension, colon cancer, gastroesophageal reflux. 10/19 poor appetite, little intake so far 10/20 still weak, only fair intake Today feeling weak. Cough, non-productive. He has not had a BM since 10/16/19 and has some abdominal firmness. Dialysis today. Vitals Vitals Vital Signs Date Time Temp Pulse Resp B/P (MAP) Pulse Ox O2 Delivery O2 Flow Rate FiO2 10/21/19 08:11 97 Room Air 10/21/19 07:00 97.9 73 18 135/70 (91) 97.9 Physical Exam Physical Exam GENERAL: Lying down, alert, tired appearance. HEENT: Pupils equal. Oropharynx pink and moist. No lesions. NECK: Supple. LUNGS: Clear to auscultation. CARDIAC: S1, S2. ABDOMEN: Obese, soft, nontender with bowel sounds present. EXTREMITIES: No gross edema or cyanosis. LUE-AV fistula unremarkable. SKIN: Warm to touch without signs of rash. NEUROLOGIC: Alert, answering questions appropriately. General: Alert, Oriented X3, Cooperative, No acute distress Heart: Regular rate, Normal S1, Normal S2, No murmurs, Gallops Lungs: Clear Abdomen: Normal bowel sounds, Soft, No tenderness, No hepatosplenomegaly, No masses Extremities: No clubbing, No cyanosis, No edema, Normal pulses, No tendernes s/swelling Labs LABS Laboratory Tests Test 10/20/19 10:05 10/20/19 10:54 10/20/19 20:57 10/21/19 07:53 Sodium Level 138 mmol/L (136-145) Potassium Level 3.3 mmol/L (3.5-5.1) Chloride Level 99 mmol/L (98-107) Carbon Dioxide Level 27 mmol/L (21-32) Anion Gap 12 (6-14) Blood Urea Nitrogen 44 mg/dL (8-26) Creatinine 5.9 mg/dL (0.7-1.3) Estimated GFR (Cockcroft-Gault) 12.1 Glucose Level 178 mg/dL (70-99) Calcium Level 9.1 mg/dL (8.5-10.1) Phosphorus Level 3.4 mg/dL (2.6-4.7) Albumin 3.5 g/dL (3.4-5.0) Glucose (Fingerstick) 168 mg/dL (70-99) 131 mg/dL (70-99) 112 mg/dL (70-99) Assessment and Plan Assessmemt and Plan Problems Medical Problems: (1) Anemia in chronic kidney disease (CKD) Status: Acute (2) Chronic kidney disease with end stage renal failure on dialysis Status: Acute (3) Generalized weakness Status: Acute (4) Influenza A Status: Acute Comment Review of Relevant I have reviewed the following items akanksha (where applicable) has been applied. Labs Laboratory Tests Test 10/19/19 11:15 10/19/19 13:26 10/19/19 16:47 10/19/19 21:00 Glucose (Fingerstick) 145 mg/dL (70-99) 167 mg/dL (70-99) 126 mg/dL (70-99) 204 mg/dL (70-99) Test 10/20/19 07:55 10/20/19 10:05 10/20/19 10:54 10/20/19 20:57 Glucose (Fingerstick) 106 mg/dL (70-99) 168 mg/dL (70-99) 131 mg/dL (70-99) Sodium Level 138 mmol/L (136-145) Potassium Level 3.3 mmol/L (3.5-5.1) Chloride Level 99 mmol/L (98-107) Carbon Dioxide Level 27 mmol/L (21-32) Anion Gap 12 (6-14) Blood Urea Nitrogen 44 mg/dL (8-26) Creatinine 5.9 mg/dL (0.7-1.3) Estimated GFR (Cockcroft-Gault) 12.1 Glucose Level 178 mg/dL (70-99) Calcium Level 9.1 mg/dL (8.5-10.1) Phosphorus Level 3.4 mg/dL (2.6-4.7) Albumin 3.5 g/dL (3.4-5.0) Test 10/21/19 07:53 Glucose (Fingerstick) 112 mg/dL (70-99) Laboratory Tests Test 10/20/19 10:05 10/20/19 10:54 10/20/19 20:57 10/21/19 07:53 Sodium Level 138 mmol/L (136-145) Potassium Level 3.3 mmol/L (3.5-5.1) Chloride Level 99 mmol/L (98-107) Carbon Dioxide Level 27 mmol/L (21-32) Anion Gap 12 (6-14) Blood Urea Nitrogen 44 mg/dL (8-26) Creatinine 5.9 mg/dL (0.7-1.3) Estimated GFR (Cockcroft-Gault) 12.1 Glucose Level 178 mg/dL (70-99) Calcium Level 9.1 mg/dL (8.5-10.1) Phosphorus Level 3.4 mg/dL (2.6-4.7) Albumin 3.5 g/dL (3.4-5.0) Glucose (Fingerstick) 168 mg/dL (70-99) 131 mg/dL (70-99) 112 mg/dL (70-99) Microbiology 10/17/19 Blood Culture - Preliminary, Resulted NO GROWTH AFTER 3 DAYS Medications Current Medications Acetaminophen (Tylenol) 1,000 mg 1X ONCE PO Last administered on 10/17/19at 06:25; Start 10/17/19 at 06:30; Stop 10/17/19 at 06:31; Status DC Fentanyl Citrate (Fentanyl 2ml Vial) 50 mcg 1X ONCE IVP ; Start 10/17/19 at 06:30; Stop 10/17/19 at 06:31; Status DC Albuterol/ Ipratropium (Duoneb) 3 ml 1X ONCE NEB Last administered on 10/17/19at 06:25; Start 10/17/19 at 06:30; Stop 10/17/19 at 06:31; Status DC Oseltamivir Phosphate (Tamiflu) 30 mg 1X ONCE PO Last administered on 10/17/19at 07:22; Start 10/17/19 at 07:30; Stop 10/17/19 at 07:31; Status DC Ondansetron HCl (Zofran) 4 mg 1X ONCE IV Last administered on 10/17/19at 07:21; Start 10/17/19 at 07:15; Stop 10/17/19 at 07:16; Status DC Fentanyl Citrate (Fentanyl 2ml Vial) 50 mcg 1X ONCE IVP Last administered on 10/17/19at 07:22; Start 10/17/19 at 07:15; Stop 10/17/19 at 07:16; Status DC Ondansetron HCl (Zofran) 4 mg PRN Q8HRS PRN IV NAUSEA/VOMITING; Start 10/17/19 at 07:30; Stop 10/17/19 at 14:00; Status DC Fentanyl Citrate (Fentanyl 2ml Vial) 50 mcg PRN Q2HR PRN IV PAIN; Start 10/17/19 at 07:30; Stop 10/17/19 at 11:50; Status DC Oseltamivir Phosphate (Tamiflu) 30 mg QTUTHSA PO Last administered on 10/19/19at 16:03; Start 10/19/19 at 16:00; Stop 10/21/19 at 16:01 Acetaminophen (Tylenol) 650 mg PRN Q6HRS PRN PO FEVER Last administered on 10/17/19at 11:14; Start 10/17/19 at 11:15; Stop 10/17/19 at 11:26; Status DC Sodium Chloride (Normal Saline Flush) 3 ml QSHIFT PRN IV AFTER MEDS AND BLOOD DRAWS; Start 10/17/19 at 11:30 Ondansetron HCl (Zofran) 4 mg PRN Q4HRS PRN IV NAUSEA/VOMITING; Start 10/17/19 at 11:30 Acetaminophen (Tylenol) 650 mg PRN Q4HRS PRN PO TEMP OVER 100.4F OR MILD PAIN Last administered on 10/20/19at 22:10; Start 10/17/19 at 11:30 Clonidine HCl (Catapres) 0.1 mg PRN Q6HRS PRN PO SBP>160 OR DBP>90; Start 10/17/19 at 11:30 Docusate Sodium (Colace) 100 mg PRN BID PRN PO CONSTIPATION Last administered on 10/20/19at 22:10; Start 10/17/19 at 11:30 Albuterol/ Ipratropium (Duoneb) 3 ml Q4H NEB Last administered on 10/21/19 08:08; Start 10/17/19 at 11:30 Guaifenesin (Robitussin) 200 mg PRN Q4HRS PRN PO COUGH, 1st CHOICE Last administered on 10/18/19 20:03; Start 10/17/19 at 11:30 Heparin Sodium (Porcine) (Heparin Sodium) 5,000 unit Q8HRS SQ Last administered on 10/20/19 22:00; Start 10/17/19 at 14:00 Amlodipine Besylate (Norvasc) 10 mg DAILY PO Last administered on 10/20/19 09:08; Start 10/17/19 at 12:00 Atorvastatin Calcium (Lipitor) 40 mg HS PO Last administered on 10/17/19 21:11; Start 10/17/19 at 21:00; Stop 10/18/19 at 00:21; Status DC Cetirizine HCl (ZyrTEC) 10 mg DAILY PO Last administered on 10/20/19 09:08; Start 10/17/19 at 12:00 Famotidine (Pepcid) 20 mg QODAY PO ; Start 10/19/19 at 09:00; Stop 10/18/19 at 00:22; Status DC Fluticasone Propionate (Flonase) 2 spray DAILY NS Last administered on 10/20/19 09:09; Start 10/17/19 at 12:00 Furosemide (Lasix) 40 mg [id number] PO Last administered on 10/20/19 16:05; Start 10/17/19 at 14:00 Hydralazine HCl (Apresoline) 100 mg TID PO Last administered on 10/17/19 21: 14; Start 10/17/19 at 14:00; Stop 10/18/19 at 00:22; Status DC Insulin Human Lispro (HumaLOG) 7 units TIDWMEALS SQ Last administered on 10/20/19 17:00; Start 10/17/19 at 12:00 Isosorbide Mononitrate (Imdur) 120 mg DAILY PO Last administered on 10/17/19 12:53; Start 10/17/19 at 12:00; Stop 10/18/19 at 00:22; Status DC Oseltamivir Phosphate (Tamiflu) 30 mg QMWF PO ; Start 10/18/19 at 16:00; Stop 10/23/19 at 15:59; Status UNV Carvedilol (Coreg) 25 mg BIDWMEALS PO Last administered on 10/20/19 16:07; Start 10/17/19 at 12:00 Doxazosin Mesylate (Cardura) 8 mg QHS PO ; Start 10/17/19 at 21:00; Stop 10/18/19 at 00:22; Status DC Vitamin B Complex/ Vitamin C ([place]-Elham) 1 tab DAILY PO Last administered on 10/20/19 09:07; Start 10/17/19 at 12:00 Insulin Glargine (Lantus Syringe) 25 unit QHS SQ Last administered on 10/20/19 21:00; Start 10/17/19 at 21:00 Guaifenesin/ Codeine Phosphate (Robitussin Ac) 5 ml PRN Q6HRS PRN PO COUGH, 2nd CHOICE Last administered on 10/20/19at 22:10; Start 10/17/19 at 11:45 Acetaminophen/ Hydrocodone Bitart (Lortab 5/325) 1 tab PRN Q4HRS PRN PO MODERATE TO SEVERE PAIN Last administered on 10/18/19 20:04; Start 10/17/19 at 12:00 Guaifenesin/ Codeine Phosphate (Robitussin Ac) 5 ml PRN Q6HRS PRN PO COUGH; Start 10/17/19 at 13:45; Status UNV Atorvastatin Calcium (Lipitor) 10 mg QHS PO Last administered on 10/20/19at 22:04; Start 10/18/19 at 21:00 Hydralazine HCl (Apresoline) 50 mg TID PO Last administered on 10/20/19 22:03; Start 10/18/19 at 09:00 Pantoprazole Sodium (Protonix) 40 mg DAILYAC PO Last administered on 10/20/19 09:09; Start 10/18/19 at 07:30 Pantoprazole Sodium (Protonix) 40 mg 1X ONCE PO Last administered on 10/19/19 01:33; Start 10/19/19 at 01:30; Stop 10/19/19 at 01:31; Status DC Lidocaine HCl (Xylocaine-Mpf 1% 2ml Vial) 2 ml STK-MED ONCE .ROUTE ; Start 10/19/19 at 09:04; Stop 10/19/19 at 09:04; Status DC Heparin Sodium (Porcine) (Heparin Sodium) 10,000 unit STK-MED ONCE .ROUTE ; Start 10/19/19 at 09:04; Stop 10/19/19 at 09:04; Status DC Heparin Sodium (Porcine) (Heparin Sodium) 2,500 unit 1X PRN PRN INT CAT FOR UFH LEVEL LESS THAN 0.2 Last administered on 10/19/19at 09:12; Start 10/19/19 at 08:30; Stop 10/20/19 at 08:29; Status DC Heparin Sodium (Porcine) (Heparin Sodium) 2,500 unit 1X PRN PRN INT CAT FOR UFH LEVEL LESS THAN 0.2 Last administered on 10/19/19at 10:46; Start 10/19/19 at 10:30; Stop 10/20/19 at 10:29; Status DC Sodium Chloride 1,000 ml @ 1,000 mls/hr Q1H PRN IV hypotension; Start 10/19/19 at 08:30; Stop 10/19/19 at 14:29; Status DC Albumin Human 200 ml @ 200 mls/hr 1X PRN PRN IV Hypotension; Start 10/19/19 at 08:30; Stop 10/19/19 at 14:29; Status DC Sodium Chloride 1,000 ml @ 400 mls/hr Q2H30M PRN IV PATENCY; Start 10/19/19 at 08:30; Stop 10/19/19 at 20:29; Status DC Info (PHARMACY MONITORING -- do not chart) 1 each PRN DAILY PRN MC SEE COMMENTS; Start 10/19/19 at 08:30 Info (PHARMACY MONITORING -- do not chart) 1 each PRN DAILY PRN MC SEE COMMENTS; Start 10/19/19 at 08:30 Lidocaine HCl (Xylocaine-Mpf 1% 2ml Vial) 2 ml 1X ONCE INJ Last administered on 10/19/19at 09:10; Start 10/19/19 at 08:30; Stop 10/19/19 at 09:51; Status DC Amoxicillin/ Clavulanate Potassium (Augmentin 500/ 125mg) 1 tab DAILY PO Last administered on 10/20/19at 09:14; Start 10/20/19 at 09:00 Magnesium Hydroxide (Milk Of Magnesia) 2,400 mg 1X ONCE PO ; Start 10/19/19 at 20:45; Stop 10/19/19 at 20:50; Status DC Bisacodyl (Dulcolax Supp) 10 mg 1X ONCE OR ; Start 10/19/19 at 21:00; Stop 10/19/19 at 21:01; Status DC Polyethylene Glycol (miraLAX PACKET) 17 gm PRN DAILY PRN PO CONSTIPATION Last administered on 10/20/19at 13:16; Start 10/20/19 at 13:00 Active Scripts Active Fluticasone Propionate Nasal [place] (Fluticasone Propionate) 16 Gm [place].susp 2 [place] NS DAILY MDD 1 7 Days [guaiFENesin/CODEINE 100mg/10mg] 5 ML Liquid 10 Ml PO QID MDD 1 7 Days Tamiflu (Oseltamivir Phosphate) 30 Mg Capsule 30 Mg PO QMWF MDD 1 7 Days Cetirizine Hcl 10 Mg Tablet 10 Mg PO DAILY MDD 1 7 Days Lasix (Furosemide) 40 Mg Tablet 1 Tab PO BID Reported Lantus Solostar (Insulin Glargine,Hum.rec.anlog) 100 Unit/1 Ml Insuln.pen 45 Unit SQ QHS Humalog (Insulin Lispro) 100 Unit/1 Ml Vial 15 Unit SQ TIDWMEALS Omeprazole 20 Mg Capsule.dr 20 Mg PO DAILY Aspirin Ec (Aspirin) 81 Mg Tablet.dr 81 Mg PO DAILY Atorvastatin Calcium 10 Mg Tablet 10 Mg PO HS Hydralazine Hcl 50 Mg Tablet 50 Mg PO TID Renal Caps Softgel (Folic Acid/Vitamin B Comp W-C) 1 Mg Capsule 1 Cap PO DAILY Carvedilol 25 Mg Tablet 1 Tab PO BID Norvasc (Amlodipine Besylate) 10 Mg Tablet 10 Mg PO DAILY Vitals/I & O Vital Sign - Last 24 Hours 10/20/19 10/20/19 10/20/19 10/20/19 09:07 09:08 09:08 11:00 Temp 98.1 98.1 Pulse 75 75 75 72 Resp 20 B/P (MAP) 136/68 136/68 136/68 147/69 (95) Pulse Ox 93 O2 Delivery Room Air 10/20/19 10/20/19 10/20/19 10/20/19 15:00 16:05 16:07 17:59 Temp 98.1 98.1 Pulse 76 76 76 Resp 18 B/P (MAP) 134/65 (88) 134/65 134/65 Pulse Ox 93 97 O2 Delivery Room Air Room Air 10/20/19 10/20/19 10/20/19 10/20/19 19:08 20:27 20:47 22:03 Temp 98.1 98.1 Pulse 75 75 Resp 18 B/P (MAP) 133/73 (93) 133/73 Pulse Ox 91 96 O2 Delivery Room Air Room Air Room Air 10/20/19 10/21/19 10/21/19 23:48 07:00 08:11 Temp 98.5 97.9 98.5 97.9 Pulse 77 73 Resp 20 18 B/P (MAP) 135/73 (93) 135/70 (91) Pulse Ox 98 94 97 O2 Delivery Room Air Room Air Room Air Intake and Output 10/20/19 10/20/19 10/21/19 15:00 23:00 07:00 Intake Total 200 ml 200 ml 550 ml Balance 200 ml 200 ml 550 ml LUCAS MUNOZ MD Oct 21, 2019 09:06
--- NOTE | 2019-10-21 09:34 | NUR ---
Pt refused all meds until after dialysis. I called dialysis earlier this morning, for an approximation time. They said later this afternoon, hence droplet precautions. Pt was informed, pt still refused all medications until after dialysis.
[2019-10-21 11:00] VITALS: BP 137/69
[2019-10-21] MEDS ORDERED: ALBUMIN HUMAN 25% 200 ML IV PRN (11:15)
[2019-10-21] MEDS ORDERED: DIALYSIS PATIENT. MC PRN (11:15)
[2019-10-21] MEDS ORDERED: IV NORMAL SALINE 1000ML BAG 1,000 ML IV PRN ×2 (11:15)
[2019-10-21] MEDS ORDERED: LIDOCAINE 1% PF 2 ML VIAL. ONE (11:25)
--- NOTE | 2019-10-21 11:55 | PDOC ---
Infectious Disease Note Subjective: Subjective + cough with some phlegm production No fevers some chills Vital Signs: Vital Signs Vital Signs Date Time Temp Pulse Resp B/P (MAP) Pulse Ox O2 Delivery O2 Flow Rate FiO2 10/21/19 08:11 97 Room Air 10/21/19 07:00 97.9 73 18 135/70 (91) 97.9 Physical Exam: PHYSICAL EXAM GENERAL: Lying down, alert, tired appearance. HEENT: Pupils equal. Oropharynx pink and moist. No lesions. NECK: Supple. LUNGS: Clear to auscultation. CARDIAC: S1, S2. ABDOMEN: Obese, soft, nontender with bowel sounds present. EXTREMITIES: No gross edema or cyanosis. LUE-AV fistula unremarkable. SKIN: Warm to touch without signs of rash. NEUROLOGIC: Alert, answering questions appropriately. Medications: Inpatient Meds: Current Medications Medications (Trade) Dose Ordered Sig/Adam Start Time Stop Time Status Last Admin Dose Admin Acetaminophen (Tylenol) 650 mg PRN Q4HRS PRN 10/17/19 11:30 10/20/19 22:10 650 MG Acetaminophen/ Hydrocodone Bitart (Lortab 5/325) 1 tab PRN Q4HRS PRN 10/17/19 12:00 10/18/19 20:04 1 TAB Albumin Human 200 ml @ 200 mls/hr 1X PRN PRN 10/21/19 11:15 10/21/19 17:14 Albuterol/ Ipratropium (Duoneb) 3 ml Q4H 10/17/19 11:30 10/21/19 08:08 3 ML Amlodipine Besylate (Norvasc) 10 mg DAILY 10/17/19 12:00 10/20/19 09:08 10 MG Amoxicillin/ Clavulanate Potassium (Augmentin 500/ 125mg) 1 tab DAILY 10/20/19 09:00 10/20/19 09:14 1 TAB Atorvastatin Calcium (Lipitor) 10 mg QHS 10/18/19 21:00 10/20/19 22:04 10 MG Bisacodyl (Dulcolax Supp) 10 mg 1X ONCE 10/19/19 21:00 10/19/19 21:01 DC Carvedilol (Coreg) 25 mg BIDWMEALS 10/17/19 12:00 10/20/19 16:07 12.5 MG Cetirizine HCl (ZyrTEC) 10 mg DAILY 10/17/19 12:00 10/20/19 09:08 10 MG Clonidine HCl (Catapres) 0.1 mg PRN Q6HRS PRN 10/17/19 11:30 Docusate Sodium (Colace) 100 mg PRN BID PRN 10/17/19 11:30 10/20/19 22:10 100 MG Doxazosin Mesylate (Cardura) 8 mg QHS 10/17/19 21:00 10/18/19 00:22 DC Famotidine (Pepcid) 20 mg QODAY 10/19/19 09:00 10/18/19 00:22 DC Fentanyl Citrate (Fentanyl 2ml Vial) 50 mcg PRN Q2HR PRN 10/17/19 07:30 10/17/19 11:50 DC Fluticasone Propionate (Flonase) 2 spray DAILY 10/17/19 12:00 10/20/19 09:09 2 SPRAY Furosemide (Lasix) 40 mg BID92 10/17/19 14:00 10/20/19 16:05 40 MG Guaifenesin (Robitussin) 200 mg PRN Q4HRS PRN 10/17/19 11:30 10/18/19 20:03 200 MG Guaifenesin/ Codeine Phosphate (Robitussin Ac) 5 ml PRN Q6HRS PRN 10/17/19 13:45 UNV Heparin Sodium (Porcine) (Heparin Sodium) 10,000 unit STK-MED ONCE 10/21/19 11:24 10/21/19 11:24 DC Hydralazine HCl (Apresoline) 50 mg TID 10/18/19 09:00 10/20/19 22:03 50 MG Info (PHARMACY MONITORING -- do not chart) 1 each PRN DAILY PRN 10/21/19 11:15 Insulin Glargine (Lantus Syringe) 25 unit QHS 10/17/19 21:00 10/20/19 21:00 25 UNIT Insulin Human Lispro (HumaLOG) 7 units TIDWMEALS 10/17/19 12:00 10/20/19 17:00 7 UNITS Isosorbide Mononitrate (Imdur) 120 mg DAILY 10/17/19 12:00 10/18/19 00:22 DC 10/17/19 12:53 120 MG Lidocaine HCl (Xylocaine-Mpf 1% 2ml Vial) 2 ml STK-MED ONCE 10/21/19 11:25 10/21/19 11:25 DC Magnesium Hydroxide (Milk Of Magnesia) 2,400 mg 1X ONCE 10/19/19 20:45 10/19/19 20:50 DC Ondansetron HCl (Zofran) 4 mg PRN Q4HRS PRN 10/17/19 11:30 Oseltamivir Phosphate (Tamiflu) 30 mg QMWF 10/18/19 16:00 10/23/19 15:59 UNV Pantoprazole Sodium (Protonix) 40 mg 1X ONCE 10/19/19 01:30 10/19/19 01:31 DC 10/19/19 01:33 40 MG Polyethylene Glycol (miraLAX PACKET) 17 gm PRN DAILY PRN 10/20/19 13:00 10/20/19 13:16 17 GM Sodium Chloride 1,000 ml @ 400 mls/hr Q2H30M PRN 10/21/19 11:15 10/21/19 23:14 Sodium Chloride (Normal Saline Flush) 3 ml QSHIFT PRN 10/17/19 11:30 Vitamin B Complex/ Vitamin C ([place]-Elham) 1 tab DAILY 10/17/19 12:00 10/20/19 09:07 1 TAB Labs: Lab Laboratory Tests Test 10/20/19 20:57 10/21/19 07:53 10/21/19 10:29 Glucose (Fingerstick) 131 mg/dL (70-99) 112 mg/dL (70-99) 184 mg/dL (70-99) Objective: Assessment: 1. Influenza A. 2. Fever, nausea and vomiting. 3. Chronic kidney disease, on hemodialysis. 4. Diabetes Plan: Plan of Care complete Tamiflu, renally dosed cont IBETH Monique MD Oct 21, 2019 11:55
--- NOTE | 2019-10-21 13:09 | PDOC ---
SUBJECTIVE ROS Pt concerned he is below his dry weight and he doesnt want any UF seen on HD , denies SOB, reports has RRF bijan when he takes lasix OBJECTIVE Vital Signs Vital Signs Date Time Temp Pulse Resp B/P (MAP) Pulse Ox O2 Delivery O2 Flow Rate FiO2 10/21/19 11:00 97.9 73 18 137/69 (91) 92 Room Air 97.9 I & 0 Intake and Output 10/21/19 07:00 Intake Total 950 ml Balance 950 ml Intake Oral 950 ml # Voids 2 PHYSICAL EXAM Physical Exam GENERAL: NAD HEENT: Pupils equal. Oropharynx pink and moist. No lesions. NECK: Supple. LUNGS: Clear to auscultation. CARDIAC: S1, S2. ABDOMEN: Obese, soft, nontender with bowel sounds present. EXTREMITIES: No gross edema or cyanosis. LUE-AV fistula unremarkable. SKIN: Warm to touch without signs of rash. NEUROLOGIC: Alert, answering questions appropriately. Gu marvel talley DIAGNOSIS/ASSESSMENT Assessment & Plan ESRD -On HD TTS under Dr Villeda Seen on HD, tolerating well, continue as ordered, [place] Sun No UF , as Pt below his dry weight, clinically euvolemic Influenza A- On Tamiflu HypoKalemia- mild, replace as needed Fever, nausea and vomiting. Diabetes COMMENT/RELEVANT DATA Meds Current Medications Medications (Trade) Dose Ordered Sig/Adam Start Time Stop Time Status Last Admin Dose Admin Acetaminophen (Tylenol) 650 mg PRN Q4HRS PRN 10/17/19 11:30 10/20/19 22:10 650 MG Acetaminophen/ Hydrocodone Bitart (Lortab 5/325) 1 tab PRN Q4HRS PRN 10/17/19 12:00 10/18/19 20:04 1 TAB Albumin Human 200 ml @ 200 mls/hr 1X PRN PRN 10/21/19 11:15 10/21/19 17:14 Albuterol/ Ipratropium (Duoneb) 3 ml Q4H 10/17/19 11:30 10/21/19 08:08 3 ML Amlodipine Besylate (Norvasc) 10 mg DAILY 10/17/19 12:00 10/20/19 09:08 10 MG Amoxicillin/ Clavulanate Potassium (Augmentin 500/ 125mg) 1 tab DAILY 10/20/19 09:00 10/20/19 09:14 1 TAB Atorvastatin Calcium (Lipitor) 10 mg QHS 10/18/19 21:00 10/20/19 22:04 10 MG Bisacodyl (Dulcolax Supp) 10 mg 1X ONCE 10/19/19 21:00 10/19/19 21:01 DC Carvedilol (Coreg) 25 mg BIDWMEALS 10/17/19 12:00 10/20/19 16:07 12.5 MG Cetirizine HCl (ZyrTEC) 10 mg DAILY 10/17/19 12:00 10/20/19 09:08 10 MG Clonidine HCl (Catapres) 0.1 mg PRN Q6HRS PRN 10/17/19 11:30 Docusate Sodium (Colace) 100 mg PRN BID PRN 10/17/19 11:30 10/20/19 22:10 100 MG Doxazosin Mesylate (Cardura) 8 mg QHS 10/17/19 21:00 10/18/19 00:22 DC Famotidine (Pepcid) 20 mg QODAY 10/19/19 09:00 10/18/19 00:22 DC Fentanyl Citrate (Fentanyl 2ml Vial) 50 mcg PRN Q2HR PRN 10/17/19 07:30 10/17/19 11:50 DC Fluticasone Propionate (Flonase) 2 spray DAILY 10/17/19 12:00 10/20/19 09:09 2 SPRAY Furosemide (Lasix) 40 mg BID92 10/17/19 14:00 10/20/19 16:05 40 MG Guaifenesin (Robitussin) 200 mg PRN Q4HRS PRN 10/17/19 11:30 10/18/19 20:03 200 MG Guaifenesin/ Codeine Phosphate (Robitussin Ac) 5 ml PRN Q6HRS PRN 10/17/19 13:45 UNV Heparin Sodium (Porcine) (Heparin Sodium) 10,000 unit STK-MED ONCE 10/21/19 11:24 10/21/19 11:24 DC Hydralazine HCl (Apresoline) 50 mg TID 10/18/19 09:00 10/20/19 22:03 50 MG Info (PHARMACY MONITORING -- do not chart) 1 each PRN DAILY PRN 10/21/19 11:15 Insulin Glargine (Lantus Syringe) 25 unit QHS 10/17/19 21:00 10/20/19 21:00 25 UNIT Insulin Human Lispro (HumaLOG) 7 units TIDWMEALS 10/17/19 12:00 10/20/19 17:00 7 UNITS Isosorbide Mononitrate (Imdur) 120 mg DAILY 10/17/19 12:00 10/18/19 00:22 DC 10/17/19 12:53 120 MG Lidocaine HCl (Xylocaine-Mpf 1% 2ml Vial) 2 ml STK-MED ONCE 10/21/19 11:25 10/21/19 11:25 DC Magnesium Hydroxide (Milk Of Magnesia) 2,400 mg 1X ONCE 10/19/19 20:45 10/19/19 20:50 DC Ondansetron HCl (Zofran) 4 mg PRN Q4HRS PRN 10/17/19 11:30 Oseltamivir Phosphate (Tamiflu) 30 mg QMWF 10/18/19 16:00 10/23/19 15:59 UNV Pantoprazole Sodium (Protonix) 40 mg 1X ONCE 10/19/19 01:30 10/19/19 01:31 DC 10/19/19 01:33 40 MG Polyethylene Glycol (miraLAX PACKET) 17 gm PRN DAILY PRN 10/20/19 13:00 10/20/19 13:16 17 GM Sodium Chloride 1,000 ml @ 400 mls/hr Q2H30M PRN 10/21/19 11:15 10/21/19 23:14 Sodium Chloride (Normal Saline Flush) 3 ml QSHIFT PRN 10/17/19 11:30 Vitamin B Complex/ Vitamin C ([place]) 1 tab DAILY 10/17/19 12:00 10/20/19 09:07 1 TAB Lab Laboratory Tests Test 10/20/19 20:57 10/21/19 07:53 10/21/19 10:29 Glucose (Fingerstick) 131 mg/dL (70-99) 112 mg/dL (70-99) 184 mg/dL (70-99) Results All relevant outside records, renal labs, imaging studies, telemetry/EKG's were reviewed. LEYDI IBARRA MD Oct 21, 2019 13:09
[2019-10-21 16:00] VITALS: BP 144/78
--- NOTE | 2019-10-21 16:16 | NUR ---
Received report from Shilpa in dialysis, no fluid taken off, and his blood was just cleaned. BP at 136/69
[2019-10-21] MEDS ORDERED: LACTULOSE 20 GM/30 ML SOLUTION. PO PRN (16:45)
[2019-10-21] MEDS: FLUTICASONE 50MCG/NASAL SPRAY 16GM BOTTLE. NS SCH (16:48)
[2019-10-21] MEDS: DOCUSATE SODIUM 100 MG CAPSULE. PO SCH (16:49)
[2019-10-21] MEDS: CARVEDILOL 12.5 MG TABLET. PO SCH ×2 (16:49→16:57)
[2019-10-21] MEDS: FOLIC/VIT B COMP W-C (RENAL) TABLET. PO SCH (16:50)
[2019-10-21] MEDS: CETIRIZINE HCL 10 MG TABLET. PO SCH (16:50)
[2019-10-21] MEDS: FUROSEMIDE 40 MG TABLET. PO SCH ×2 (16:51→16:57)
[2019-10-21] MEDS: amLODIPine BESYLATE 10 MG TABLET PO SCH (16:51)
[2019-10-21] MEDS: OSELTAMIVIR 30 MG CAPSULE PO SCH (16:55)
[2019-10-21] MEDS: AMOXICILLIN/K CLAV 500/125MG TABLET. PO SCH (16:55)
[2019-10-21] MEDS: POLYETHYLENE GLYCOL 3350 17 GM PACKET. PO PRN (16:56)
[2019-10-21] MEDS: guaiFENesin/CODEINE 100mg/10mg 5 ML LIQUID PO PRN ×2 (17:15→23:25)
[2019-10-21] MEDS: PSYLLIUM HUSK (SUGAR FREE) 1 PKT PACKET PO SCH (17:15)
[2019-10-21 19:10] VITALS: BP 130/75
[2019-10-21] MEDS: ATORVASTATIN CALCIUM 10 MG TABLET. PO SCH (21:11)
[2019-10-21] MEDS: INSULIN GLARGINE SYRINGE. SQ SCH (21:18)
[2019-10-21 23:15] VITALS: BP 137/74
[2019-10-22 03:15] VITALS: BP 133/69
[2019-10-22] MEDS: IPRATRPIUM/ALBUTEROL 0.5/2.5MG 3 ML NEBU. NEB SCH ×3 (03:30→11:28)
[2019-10-22] MEDS: guaiFENesin/CODEINE 100mg/10mg 5 ML LIQUID PO PRN (05:46)
[2019-10-22] MEDS: HEPARIN for SUB-Q USE 5,000 UNIT/ML VIAL. SQ SCH (05:49)
[2019-10-22 07:00] VITALS: BP 133/75
[2019-10-22 07:58] LABS: BASO % 1 % (0-3); EOS # 0.1 x10^3/uL (0.0-0.7); EOS % 2 % (0-3); HEMATOCRIT 33.9 % (39.0-53.0); HEMOGLOBIN 10.7 g/dL (13.0-17.5); LYMPH # 1.6 x10^3/uL (1.0-4.8); LYMPH % 31 % (24-48); MEAN CORPUSCULAR HEMOGLOBIN 25 pg (25-35); MEAN CORPUSCULAR HGB CONC 32 g/dL (31-37); MEAN CORPUSCULAR VOLUME 78 fL (79-100); MONO # 0.3 x10^3/uL (0.0-1.1); MONO % 7 % (0-9); NEUT # 3.1 x10^3/uL (1.8-7.7); NEUT % 60 % (31-73); PLATELET COUNT 181 x10^3/uL (140-400); RED BLOOD COUNT 4.33 x10^6/uL (4.30-5.70); RED CELL DISTRIBUTION WIDTH 15.8 % (11.5-14.5); WHITE BLOOD COUNT 5.1 x10^3/uL (4.0-11.0)
[2019-10-22] MEDS: INSULIN LISPRO 300 UNITS/3 ML VIAL. SQ SCH (08:00)
[2019-10-22 08:34] LABS: ALBUMIN 3.3 g/dL (3.4-5.0); CALCIUM 9.3 mg/dL (8.5-10.1); CREATININE 4.4 mg/dL (0.7-1.3); PHOSPHORUS 2.6 mg/dL (2.6-4.7); POTASSIUM 4.3 mmol/L (3.5-5.1)
[2019-10-22] MEDS: FOLIC/VIT B COMP W-C (RENAL) TABLET. PO SCH (08:47)
[2019-10-22] MEDS: CARVEDILOL 12.5 MG TABLET. PO SCH (08:47)
[2019-10-22] MEDS: amLODIPine BESYLATE 10 MG TABLET PO SCH (08:47)
[2019-10-22] MEDS: DOCUSATE SODIUM 100 MG CAPSULE. PO SCH (08:47)
[2019-10-22] MEDS: FUROSEMIDE 40 MG TABLET. PO SCH (08:47)
[2019-10-22] MEDS: CETIRIZINE HCL 10 MG TABLET. PO SCH (08:47)
[2019-10-22] MEDS: AMOXICILLIN/K CLAV 500/125MG TABLET. PO SCH (08:48)
[2019-10-22] MEDS: PANTOPRAZOLE 40 MG TABLET.DR. PO SCH (08:48)
[2019-10-22] MEDS: FLUTICASONE 50MCG/NASAL SPRAY 16GM BOTTLE. NS SCH (08:48)
[2019-10-22] MEDS: PSYLLIUM HUSK (SUGAR FREE) 1 PKT PACKET PO SCH (08:49)
--- NOTE | 2019-10-22 08:53 | NUR ---
Pt refused assessment, informed me the doctor was going to check him out. "ONLY the doctor needs to check me out. Please leave and don't come back. " I informed patient our information goes to the doctor he refused to hear. He wanted me to leave, therefore I said have a good day.
--- NOTE | 2019-10-22 08:56 | PDOC ---
PROGRESS NOTES Chief Complaint Chief Complaint A/P: Fever Viral sepsis Chronic kidney disease with end stage renal failure on dialysis Anemia in chronic kidney disease (CKD) Generalized weakness Influenza A+ ESRD on dialysis TTH S Anemia of ESRD Hypertension, Diabetes type 2 on insulin Myalgias, slow to resolve ADMITTED ID CONSULT TAMIFLU BID RENAL DOSING NEPHROLOGY CONSULT DUONEBS QID BLOOD CULTURE PULM CONSULT HEPARIN DVT PROPHYLAXIS pt/ot History of Present Illness History of Present Illness Mr Ellsworth is a 54yo M w/ PMHx ESRD on hemodialysis; peripheral neuropathy, type 2 diabetes, coronary artery disease, congestive heart failure, previous myocardial infarction, hyperlipidemia, hypertension, colon cancer, gastroesophageal reflux. 10/19 poor appetite, little intake so far 10/20 still weak, only fair intake 10/21: Today feeling weak. Cough, non-productive. He has not had a BM since 10/16/19 and has some abdominal firmness. Dialysis today. BM overnight. He has been refusing some therapies and medications over the past 24 hours. He is still coughing a bit, feels weak. Does not wish for therapy, asking if he can stay for dialysis here tomorrow. On PO augmentin. Had his last dose of tamiflu renally dosed. Vitals Vitals Vital Signs Date Time Temp Pulse Resp B/P (MAP) Pulse Ox O2 Delivery O2 Flow Rate FiO2 10/22/19 08:48 74 133/75 10/22/19 07:50 97 Room Air 10/22/19 07:00 98.3 18 98.3 Physical Exam Physical Exam GENERAL: Lying down, alert, tired appearance. HEENT: Pupils equal. Oropharynx pink and moist. No lesions. NECK: Supple. LUNGS: Clear to auscultation. CARDIAC: S1, S2. ABDOMEN: Obese, soft, nontender with bowel sounds present. EXTREMITIES: No gross edema or cyanosis. LUE-AV fistula unremarkable. SKIN: Warm to touch without signs of rash. NEUROLOGIC: Alert, answering questions appropriately. General: Alert, Oriented X3, Cooperative, No acute distress Heart: Regular rate, Normal S1, Normal S2, No murmurs, Gallops Lungs: Clear Abdomen: Normal bowel sounds, Soft, No tenderness, No hepatosplenomegaly, No masses Extremities: No clubbing, No cyanosis, No edema, Normal pulses, No tenderness/swelling Labs LABS Laboratory Tests Test 10/21/19 10:29 10/21/19 16:48 10/21/19 21:07 10/22/19 05:00 Glucose (Fingerstick) 184 mg/dL (70-99) 88 mg/dL (70-99) 147 mg/dL (70-99) White Blood Count 5.1 x10^3/uL (4.0-11.0) Red Blood Count 4.33 x10^6/uL (4.30-5.70) Hemoglobin 10.7 g/dL (13.0-17.5) Hematocrit 33.9 % (39.0-53.0) Mean Corpuscular Volume 78 fL (79-100) Mean Corpuscular Hemoglobin 25 pg (25-35) Mean Corpuscular Hemoglobin Concent 32 g/dL (31-37) Red Cell Distribution Width 15.8 % (11.5-14.5) Platelet Count 181 x10^3/uL (140-400) Neutrophils (%) (Auto) 60 % (31-73) Lymphocytes (%) (Auto) 31 % (24-48) Monocytes (%) (Auto) 7 % (0-9) Eosinophils (%) (Auto) 2 % (0-3) Basophils (%) (Auto) 1 % (0-3) Neutrophils # (Auto) 3.1 x10^3/uL (1.8-7.7) Lymphocytes # (Auto) 1.6 x10^3/uL (1.0-4.8) Monocytes # (Auto) 0.3 x10^3/uL (0.0-1.1) Eosinophils # (Auto) 0.1 x10^3/uL (0.0-0.7) Basophils # (Auto) 0.0 x10^3/uL (0.0-0.2) Test 10/22/19 07:05 10/22/19 08:16 Sodium Level 141 mmol/L (136-145) Potassium Level 4.3 mmol/L (3.5-5.1) Chloride Level 102 mmol/L (98-107) Carbon Dioxide Level 30 mmol/L (21-32) Anion Gap 9 (6-14) Blood Urea Nitrogen 30 mg/dL (8-26) Creatinine 4.4 mg/dL (0.7-1.3) Estimated GFR (Cockcroft-Gault) 17.0 Glucose Level 97 mg/dL (70-99) Calcium Level 9.3 mg/dL (8.5-10.1) Phosphorus Level 2.6 mg/dL (2.6-4.7) Albumin 3.3 g/dL (3.4-5.0) Glucose (Fingerstick) 91 mg/dL (70-99) Assessment and Plan Assessmemt and Plan Problems Medical Problems: (1) Anemia in chronic kidney disease (CKD) Status: Acute (2) Chronic kidney disease with end stage renal failure on dialysis Status: Acute (3) Generalized weakness Status: Acute (4) Influenza A Status: Acute Comment Review of Relevant I have reviewed the following items akanksha (where applicable) has been applied. Labs Laboratory Tests Test 10/20/19 10:05 10/20/19 10:54 10/20/19 20:57 10/21/19 07:53 Sodium Level 138 mmol/L (136-145) Potassium Level 3.3 mmol/L (3.5-5.1) Chloride Level 99 mmol/L (98-107) Carbon Dioxide Level 27 mmol/L (21-32) Anion Gap 12 (6-14) Blood Urea Nitrogen 44 mg/dL (8-26) Creatinine 5.9 mg/dL (0.7-1.3) Estimated GFR (Cockcroft-Gault) 12.1 Glucose Level 178 mg/dL (70-99) Calcium Level 9.1 mg/dL (8.5-10.1) Phosphorus Level 3.4 mg/dL (2.6-4.7) Albumin 3.5 g/dL (3.4-5.0) Glucose (Fingerstick) 168 mg/dL (70-99) 131 mg/dL (70-99) 112 mg/dL (70-99) Test 10/21/19 10:29 10/21/19 16:48 10/21/19 21:07 10/22/19 05:00 Glucose (Fingerstick) 184 mg/dL (70-99) 88 mg/dL (70-99) 147 mg/dL (70-99) White Blood Count 5.1 x10^3/uL (4.0-11.0) Red Blood Count 4.33 x10^6/uL (4.30-5.70) Hemoglobin 10.7 g/dL (13.0-17.5) Hematocrit 33.9 % (39.0-53.0) Mean Corpuscular Volume 78 fL (79-100) Mean Corpuscular Hemoglobin 25 pg (25-35) Mean Corpuscular Hemoglobin Concent 32 g/dL (31-37) Red Cell Distribution Width 15.8 % (11.5-14.5) Platelet Count 181 x10^3/uL (140-400) Neutrophils (%) (Auto) 60 % (31-73) Lymphocytes (%) (Auto) 31 % (24-48) Monocytes (%) (Auto) 7 % (0-9) Eosinophils (%) (Auto) 2 % (0-3) Basophils (%) (Auto) 1 % (0-3) Neutrophils # (Auto) 3.1 x10^3/uL (1.8-7.7) Lymphocytes # (Auto) 1.6 x10^3/uL (1.0-4.8) Monocytes # (Auto) 0.3 x10^3/uL (0.0-1.1) Eosinophils # (Auto) 0.1 x10^3/uL (0.0-0.7) Basophils # (Auto) 0.0 x10^3/uL (0.0-0.2) Test 10/22/19 07:05 10/22/19 08:16 Sodium Level 141 mmol/L (136-145) Potassium Level 4.3 mmol/L (3.5-5.1) Chloride Level 102 mmol/L (98-107) Carbon Dioxide Level 30 mmol/L (21-32) Anion Gap 9 (6-14) Blood Urea Nitrogen 30 mg/dL (8-26) Creatinine 4.4 mg/dL (0.7-1.3) Estimated GFR (Cockcroft-Gault) 17.0 Glucose Level 97 mg/dL (70-99) Calcium Level 9.3 mg/dL (8.5-10.1) Phosphorus Level 2.6 mg/dL (2.6-4.7) Albumin 3.3 g/dL (3.4-5.0) Glucose (Fingerstick) 91 mg/dL (70-99) Laboratory Tests Test 10/21/19 10:29 10/21/19 16:48 10/21/19 21:07 10/22/19 05:00 Glucose (Fingerstick) 184 mg/dL (70-99) 88 mg/dL (70-99) 147 mg/dL (70-99) White Blood Count 5.1 x10^3/uL (4.0-11.0) Red Blood Count 4.33 x10^6/uL (4.30-5.70) Hemoglobin 10.7 g/dL (13.0-17.5) Hematocrit 33.9 % (39.0-53.0) Mean Corpuscular Volume 78 fL (79-100) Mean Corpuscular Hemoglobin 25 pg (25-35) Mean Corpuscular Hemoglobin Concent 32 g/dL (31-37) Red Cell Distribution Width 15.8 % (11.5-14.5) Platelet Count 181 x10^3/uL (140-400) Neutrophils (%) (Auto) 60 % (31-73) Lymphocytes (%) (Auto) 31 % (24-48) Monocytes (%) (Auto) 7 % (0-9) Eosinophils (%) (Auto) 2 % (0-3) Basophils (%) (Auto) 1 % (0-3) Neutrophils # (Auto) 3.1 x10^3/uL (1.8-7.7) Lymphocytes # (Auto) 1.6 x10^3/uL (1.0-4.8) Monocytes # (Auto) 0.3 x10^3/uL (0.0-1.1) Eosinophils # (Auto) 0.1 x10^3/uL (0.0-0.7) Basophils # (Auto) 0.0 x10^3/uL (0.0-0.2) Test 10/22/19 07:05 10/22/19 08:16 Sodium Level 141 mmol/L (136-145) Potassium Level 4.3 mmol/L (3.5-5.1) Chloride Level 102 mmol/L (98-107) Carbon Dioxide Level 30 mmol/L (21-32) Anion Gap 9 (6-14) Blood Urea Nitrogen 30 mg/dL (8-26) Creatinine 4.4 mg/dL (0.7-1.3) Estimated GFR (Cockcroft-Gault) 17.0 Glucose Level 97 mg/dL (70-99) Calcium Level 9.3 mg/dL (8.5-10.1) Phosphorus Level 2.6 mg/dL (2.6-4.7) Albumin 3.3 g/dL (3.4-5.0) Glucose (Fingerstick) 91 mg/dL (70-99) Microbiology 10/17/19 Blood Culture - Preliminary, Resulted NO GROWTH AFTER 4 DAYS Medications Current Medications Acetaminophen (Tylenol) 1,000 mg 1X ONCE PO Last administered on 10/17/19at 06:25; Start 10/17/19 at 06:30; Stop 10/17/19 at 06:31; Status DC Fentanyl Citrate (Fentanyl 2ml Vial) 50 mcg 1X ONCE IVP ; Start 10/17/19 at 06:30; Stop 10/17/19 at 06:31; Status DC Albuterol/ Ipratropium (Duoneb) 3 ml 1X ONCE NEB Last administered on 09/27 12/15at 06:25; Start 10/17/19 at 06:30; Stop 10/17/19 at 06:31; Status DC Oseltamivir Phosphate (Tamiflu) 30 mg 1X ONCE PO Last administered on 10/17/19at 07:22; Start 10/17/19 at 07:30; Stop 10/17/19 at 07:31; Status DC Ondansetron HCl (Zofran) 4 mg 1X ONCE IV Last administered on 10/17/19at 07:21; Start 10/17/19 at 07:15; Stop 10/17/19 at 07:16; Status DC Fentanyl Citrate (Fentanyl 2ml Vial) 50 mcg 1X ONCE IVP Last administered on 10/17/19at 07:22; Start 10/17/19 at 07:15; Stop 10/17/19 at 07:16; Status DC Ondansetron HCl (Zofran) 4 mg PRN Q8HRS PRN IV NAUSEA/VOMITING; Start 10/17/19 at 07:30; Stop 10/17/19 at 14:00; Status DC Fentanyl Citrate (Fentanyl 2ml Vial) 50 mcg PRN Q2HR PRN IV PAIN; Start 10/17/19 at 07:30; Stop 10/17/19 at 11:50; Status DC Oseltamivir Phosphate (Tamiflu) 30 mg QTUTHSA PO Last administered on 10/21/19 16:55; Start 10/19/19 at 16:00; Stop 10/21/19 at 16:01; Status DC Acetaminophen (Tylenol) 650 mg PRN Q6HRS PRN PO FEVER Last administered on 10/17/19 11:14; Start 10/17/19 at 11:15; Stop 10/17/19 at 11:26; Status DC Sodium Chloride (Normal Saline Flush) 3 ml QSHIFT PRN IV AFTER MEDS AND BLOOD DRAWS; Start 10/17/19 at 11:30 Ondansetron HCl (Zofran) 4 mg PRN Q4HRS PRN IV NAUSEA/VOMITING; Start 10/17/19 at 11:30 Acetaminophen (Tylenol) 650 mg PRN Q4HRS PRN PO TEMP OVER 100.4F OR MILD PAIN Last administered on 10/20/19 22:10; Start 10/17/19 at 11:30 Clonidine HCl (Catapres) 0.1 mg PRN Q6HRS PRN PO SBP>160 OR DBP>90; Start 10/17/19 at 11:30 Docusate Sodium (Colace) 100 mg PRN BID PRN PO HARD STOOLS Last administered on 10/20/19 22:10; Start 10/17/19 at 11:30 Albuterol/ Ipratropium (Duoneb) 3 ml Q4H NEB Last administered on 10/22/19 07:49; Start 10/17/19 at 11:30 Guaifenesin (Robitussin) 200 mg PRN Q4HRS PRN PO COUGH, 1st CHOICE Last administered on 10/18/19 20:03; Start 10/17/19 at 11:30 Heparin Sodium (Porcine) (Heparin Sodium) 5,000 unit Q8HRS SQ Last administered on 10/22/19 05:49; Start 10/17/19 at 14:00 Amlodipine Besylate (Norvasc) 10 mg DAILY PO Last administered on 10/22/19 08:47; Start 10/17/19 at 12:00 Atorvastatin Calcium (Lipitor) 40 mg HS PO Last administered on 10/17/19 21:11; Start 10/17/19 at 21:00; Stop 10/18/19 at 00:21; Status DC Cetirizine HCl (ZyrTEC) 10 mg DAILY PO Last administered on 10/22/19 08:47; Start 10/17/19 at 12:00 Famotidine (Pepcid) 20 mg QODAY PO ; Start 10/19/19 at 09:00; Stop 10/18/19 at 00:22; Status DC Fluticasone Propionate (Flonase) 2 spray DAILY NS Last administered on 10/21at 16:48; Start 10/17/19 at 12:00 Furosemide (Lasix) 40 mg [id number] PO Last administered on 10/22/19 08:47; Start 10/17/19 at 14:00 Hydralazine HCl (Apresoline) 100 mg TID PO Last administered on 10/17/19 21:14; Start 10/17/19 at 14:00; Stop 10/18/19 at 00:22; Status DC Insulin Human Lispro (HumaLOG) 7 units TIDWMEALS SQ Last administered on 10/20/19at 17:00; Start 10/17/19 at 12:00 Isosorbide Mononitrate (Imdur) 120 mg DAILY PO Last administered on 10/17/19at 12:53; Start 10/17/19 at 12:00; Stop 10/18/19 at 00:22; Status DC Oseltamivir Phosphate (Tamiflu) 30 mg QMWF PO ; Start 10/18/19 at 16:00; Stop 10/23/19 at 15:59; Status UNV Carvedilol (Coreg) 25 mg BIDWMEALS PO Last administered on 10/22/19 08:47; Start 10/17/19 at 12:00 Doxazosin Mesylate (Cardura) 8 mg QHS PO ; Start 10/17/19 at 21:00; Stop 10/18/19 at 00:22; Status DC Vitamin B Complex/ Vitamin C (Lavern-Elham) 1 tab DAILY PO Last administered on 10/22/19 08:47; Start 10/17/19 at 12:00 Insulin Glargine (Lantus Syringe) 25 unit QHS SQ Last administered on 10/21/19at 21:18; Start 10/17/19 at 21:00 Guaifenesin/ Codeine Phosphate (Robitussin Ac) 5 ml PRN Q6HRS PRN PO COUGH, 2nd CHOICE Last administered on 10/22/19at 05:46; Start 10/17/19 at 11:45 Acetaminophen/ Hydrocodone Bitart (Lortab 5/325) 1 tab PRN Q4HRS PRN PO MODERATE TO SEVERE PAIN Last administered on 10/18/19at 20:04; Start 10/17/19 at 12:00 Guaifenesin/ Codeine Phosphate (Robitussin Ac) 5 ml PRN Q6HRS PRN PO COUGH; Start 10/17/19 at 13:45; Status UNV Atorvastatin Calcium (Lipitor) 10 mg QHS PO Last administered on 10/21/19at 21:11; Start 10/18/19 at 21:00 Hydralazine HCl (Apresoline) 50 mg TID PO Last administered on 10/22/19at 08:48; Start 10/18/19 at 09:00 Pantoprazole Sodium (Protonix) 40 mg DAILYAC PO Last administered on 10/22/19at 08:48; Start 10/18/19 at 07:30 Pantoprazole Sodium (Protonix) 40 mg 1X ONCE PO Last administered on 10/19/19 01:33; Start 10/19/19 at 01:30; Stop 10/19/19 at 01:31; Status DC Lidocaine HCl (Xylocaine-Mpf 1% 2ml Vial) 2 ml STK-MED ONCE .ROUTE ; Start 10/19/19 at 09:04; Stop 10/19/19 at 09:04; Status DC Heparin Sodium (Porcine) (Heparin Sodium) 10,000 unit STK-MED ONCE .ROUTE ; Start 10/19/19 at 09:04; Stop 10/19/19 at 09:04; Status DC Heparin Sodium (Porcine) (Heparin Sodium) 2,500 unit 1X PRN PRN INT CAT FOR UFH LEVEL LESS THAN 0.2 Last administered on 10/19/19at 09:12; Start 10/19/19 at 08:30; Stop 10/20/19 at 08:29; Status DC Heparin Sodium (Porcine) (Heparin Sodium) 2,500 unit 1X PRN PRN INT CAT FOR UFH LEVEL LESS THAN 0.2 Last administered on 10/19/19at 10:46; Start 10/19/19 at 10:30; Stop 10/20/19 at 10:29; Status DC Sodium Chloride 1,000 ml @ 1,000 mls/hr Q1H PRN IV hypotension; Start 10/19/19 at 08:30; Stop 10/19/19 at 14:29; Status DC Albumin Human 200 ml @ 200 mls/hr 1X PRN PRN IV Hypotension; Start 10/19/19 at 08:30; Stop 10/19/19 at 14:29; Status DC Sodium Chloride 1,000 ml @ 400 mls/hr Q2H30M PRN IV PATENCY; Start 10/19/19 at 08:30; Stop 10/19/19 at 20:29; Status DC Info (PHARMACY MONITORING -- do not chart) 1 each PRN DAILY PRN MC SEE COMMENTS; Start 10/19/19 at 08:30; Stop 10/21/19 at 11:29; Status DC Info (PHARMACY MONITORING -- do not chart) 1 each PRN DAILY PRN MC SEE COMMENTS; Start 10/19/19 at 08:30; Stop 10/21/19 at 11:29; Status DC Lidocaine HCl (Xylocaine-Mpf 1% 2ml Vial) 2 ml 1X ONCE INJ Last administered on 10/19/19at 09:10; Start 10/19/19 at 08:30; Stop 10/19/19 at 09:51; Status DC Amoxicillin/ Clavulanate Potassium (Augmentin 500/ 125mg) 1 tab DAILY PO Last administered on 10/22/19at 08:48; Start 10/20/19 at 09:00 Magnesium Hydroxide (Milk Of Magnesia) 2,400 mg 1X ONCE PO ; Start 10/19/19 at 20:45; Stop 10/19/19 at 20:50; Status DC Bisacodyl (Dulcolax Supp) 10 mg 1X ONCE WI ; Start 10/19/19 at 21:00; Stop 10/19/19 at 21:01; Status DC Polyethylene Glycol (miraLAX PACKET) 17 gm PRN DAILY PRN PO CONSTIPATION Last administered on 10/21/19at 16:56; Start 10/20/19 at 13:00 Sodium Chloride 1,000 ml @ 1,000 mls/hr Q1H PRN IV hypotension; Start 10/21/19 at 11:15; Stop 10/21/19 at 17:14; Status DC Albumin Human 200 ml @ 200 mls/hr 1X PRN PRN IV Hypotension; Start 10/21/19 a t 11:15; Stop 10/21/19 at 17:14; Status DC Sodium Chloride 1,000 ml @ 400 mls/hr Q2H30M PRN IV PATENCY; Start 10/21/19 at 11:15; Stop 10/21/19 at 23:14; Status DC Info (PHARMACY MONITORING -- do not chart) 1 each PRN DAILY PRN MC SEE COMMENTS; Start 10/21/19 at 11:15 Heparin Sodium (Porcine) (Heparin Sodium) 10,000 unit STK-MED ONCE .ROUTE ; Start 10/21/19 at 11:24; Stop 10/21/19 at 11:24; Status DC Lidocaine HCl (Xylocaine-Mpf 1% 2ml Vial) 2 ml STK-MED ONCE .ROUTE ; Start 10/21/19 at 11:25; Stop 10/21/19 at 11:25; Status DC Psyllium Hydrophilic Mucilloid (Metamucil Fiber Packet) 1 pkt DAILY PO Last administered on 10/21/19at 17:15; Start 10/21/19 at 17:30 Docusate Sodium (Colace) 100 mg DAILY PO Last administered on 10/22/19at 08:47; Start 10/21/19 at 17:30 Lactulose (Lactulose) 20 gm PRN DAILY PRN PO CONSTIPATION; Start 10/21/19 at 16:45 Active Scripts Active Fluticasone Propionate Nasal [place] (Fluticasone Propionate) 16 Gm [place].susp 2 [place] NS DAILY MDD 1 7 Days [guaiFENesin/CODEINE 100mg/10mg] 5 ML Liquid 10 Ml PO QID MDD 1 7 Days Tamiflu (Oseltamivir Phosphate) 30 Mg Capsule 30 Mg PO QMWF MDD 1 7 Days Cetirizine Hcl 10 Mg Tablet 10 Mg PO DAILY MDD 1 7 Days Lasix (Furosemide) 40 Mg Tablet 1 Tab PO BID Reported Lantus Solostar (Insulin Glargine,Hum.rec.anlog) 100 Unit/1 Ml Insuln.pen 45 Unit SQ QHS Humalog (Insulin Lispro) 100 Unit/1 Ml Vial 15 Unit SQ TIDWMEALS Omeprazole 20 Mg Capsule.dr 20 Mg PO DAILY Aspirin Ec (Aspirin) 81 Mg Tablet.dr 81 Mg PO DAILY Atorvastatin Calcium 10 Mg Tablet 10 Mg PO HS Hydralazine Hcl 50 Mg Tablet 50 Mg PO TID Renal Caps Softgel (Folic Acid/Vitamin B Comp W-C) 1 Mg Capsule 1 Cap PO DAILY Carvedilol 25 Mg Tablet 1 Tab PO BID Norvasc (Amlodipine Besylate) 10 Mg Tablet 10 Mg PO DAILY Vitals/I & O Vital Sign - Last 24 Hours 10/21/19 10/21/19 10/21/19 10/21/19 11:00 16:00 16:49 16:51 Temp 97.9 97.7 97.9 97.7 Pulse 73 61 73 73 Resp 18 18 B/P (MAP) 137/69 (91) 144/78 (100) 137/69 137/69 Pulse Ox 92 96 O2 Delivery Room Air Room Air 10/21/19 10/21/19 10/21/19 10/21/19 16:55 16:57 18:10 19:10 Temp 97.7 97.7 Pulse 73 73 75 Resp 18 B/P (MAP) 137/69 137/69 130/75 (93) Pulse Ox 95 97 O2 Delivery Room Air Room Air 10/21/19 10/21/19 10/21/19 10/22/19 21:11 23:15 23:29 03:15 Temp 98.1 98.6 98.1 98.6 Pulse 75 75 74 Resp 18 18 B/P (MAP) 130/75 137/74 (95) 133/69 (90) Pulse Ox 96 95 O2 Delivery Room Air Room Air Room Air 10/22/19 10/22/19 10/22/19 10/22/19 07:00 07:50 08:47 08:47 Temp 98.3 98.3 Pulse 74 74 74 Resp 18 B/P (MAP) 133/75 (94) 133/75 133/75 Pulse Ox 94 97 O2 Delivery Room Air Room Air 10/22/19 08:48 Pulse 74 B/P (MAP) 133/75 Intake and Output 10/21/19 10/21/19 10/22/19 15:00 23:00 07:00 Intake Total 700 ml 1400 ml Output Total 0 ml Balance 700 ml 1400 ml LUCAS MUNOZ MD Oct 22, 2019 08:56
--- NOTE | 2019-10-22 10:13 | PDOC ---
Infectious Disease Note Subjective: Subjective Pt doing ok No fevers cough and sob improved Vital Signs: Vital Signs Vital Signs Date Time Temp Pulse Resp B/P (MAP) Pulse Ox O2 Delivery O2 Flow Rate FiO2 10/22/19 08:48 74 133/75 10/22/19 07:50 97 Room Air 10/22/19 07:00 98.3 18 98.3 Physical Exam: PHYSICAL EXAM GENERAL: Lying down, alert, tired appearance. HEENT: Pupils equal. Oropharynx pink and moist. No lesions. NECK: Supple. LUNGS: Clear to auscultation. CARDIAC: S1, S2. ABDOMEN: Obese, soft, nontender with bowel sounds present. EXTREMITIES: No gross edema or cyanosis. LUE-AV fistula unremarkable. SKIN: Warm to touch without signs of rash. NEUROLOGIC: Alert, answering questions appropriately. Medications: Inpatient Meds: Current Medications Medications (Trade) Dose Ordered Sig/Adam Start Time Stop Time Status Last Admin Dose Admin Acetaminophen (Tylenol) 650 mg PRN Q4HRS PRN 10/17/19 11:30 10/20/19 22:10 650 MG Acetaminophen/ Hydrocodone Bitart (Lortab 5/325) 1 tab PRN Q4HRS PRN 10/17/19 12:00 10/18/19 20:04 1 TAB Albumin Human 200 ml @ 200 mls/hr 1X PRN PRN 10/21/19 11:15 10/21/19 17:14 DC Albuterol/ Ipratropium (Duoneb) 3 ml Q4H 10/17/19 11:30 10/22/19 07:49 3 ML Amlodipine Besylate (Norvasc) 10 mg DAILY 10/17/19 12:00 10/22/19 08:47 10 MG Amoxicillin/ Clavulanate Potassium (Augmentin 500/ 125mg) 1 tab DAILY 10/20/19 09:00 10/22/19 08:48 1 TAB Atorvastatin Calcium (Lipitor) 10 mg QHS 10/18/19 21:00 10/21/19 21:11 10 MG Bisacodyl (Dulcolax Supp) 10 mg 1X ONCE 10/19/19 21:00 10/19/19 21:01 DC Carvedilol (Coreg) 25 mg BIDWMEALS 10/17/19 12:00 10/22/19 08:47 25 MG Cetirizine HCl (ZyrTEC) 10 mg DAILY 10/17/19 12:00 10/22/19 08:47 10 MG Clonidine HCl (Catapres) 0.1 mg PRN Q6HRS PRN 10/17/19 11:30 Docusate Sodium (Colace) 100 mg DAILY 10/21/19 17:30 10/22/19 08:47 100 MG Doxazosin Mesylate (Cardura) 8 mg QHS 10/17/19 21:00 10/18/19 00:22 DC Famotidine (Pepcid) 20 mg QODAY 10/19/19 09:00 10/18/19 00:22 DC Fentanyl Citrate (Fentanyl 2ml Vial) 50 mcg PRN Q2HR PRN 10/17/19 07:30 10/17/19 11:50 DC Fluticasone Propionate (Flonase) 2 spray DAILY 10/17/19 12:00 10/21/19 16:48 2 SPRAY Furosemide (Lasix) 40 mg [id number] 10/17/19 14:00 10/22/19 08:47 40 MG Guaifenesin (Robitussin) 200 mg PRN Q4HRS PRN 10/17/19 11:30 10/18/19 20:03 200 MG Guaifenesin/ Codeine Phosphate (Robitussin Ac) 5 ml PRN Q6HRS PRN 10/17/19 13:45 UNV Heparin Sodium (Porcine) (Heparin Sodium) 10,000 unit STK-MED ONCE 10/21/19 11:24 10/21/19 11:24 DC Hydralazine HCl (Apresoline) 50 mg TID 10/18/19 09:00 10/22/19 08:48 50 MG Info (PHARMACY MONITORING -- do not chart) 1 each PRN DAILY PRN 10/21/19 11:15 Insulin Glargine (Lantus Syringe) 25 unit QHS 10/17/19 21:00 10/21/19 21:18 25 UNIT Insulin Human Lispro (HumaLOG) 7 units TIDWMEALS 10/17/19 12:00 10/20/19 17:00 7 UNITS Isosorbide Mononitrate (Imdur) 120 mg DAILY 10/17/19 12:00 10/18/19 00:22 DC 10/17/19 12:53 120 MG Lactulose (Lactulose) 20 gm PRN DAILY PRN 10/21/19 16:45 Lidocaine HCl (Xylocaine-Mpf 1% 2ml Vial) 2 ml STK-MED ONCE 10/21/19 11:25 10/21/19 11:25 DC Magnesium Hydroxide (Milk Of Magnesia) 2,400 mg 1X ONCE 10/19/19 20:45 10/19/19 20:50 DC Ondansetron HCl (Zofran) 4 mg PRN Q4HRS PRN 10/17/19 11:30 Oseltamivir Phosphate (Tamiflu) 30 mg QMWF 10/18/19 16:00 10/23/19 15:59 UNV Pantoprazole Sodium (Protonix) 40 mg 1X ONCE 10/19/19 01:30 10/19/19 01:31 DC 10/19/19 01:33 40 MG Polyethylene Glycol (miraLAX PACKET) 17 gm PRN DAILY PRN 10/20/19 13:00 10/21/19 16:56 17 GM Psyllium Hydrophilic Mucilloid (Metamucil Fiber Packet) 1 pkt DAILY 10/21/19 17:30 10/21/19 17:15 1 PKT Sodium Chloride 1,000 ml @ 400 mls/hr Q2H30M PRN 10/21/19 11:15 10/21/19 23:14 DC Sodium Chloride (Normal Saline Flush) 3 ml QSHIFT PRN 10/17/19 11:30 Vitamin B Complex/ Vitamin C (La[place]-Elham) 1 tab DAILY 10/17/19 12:00 10/22/19 08:47 1 TAB Labs: Lab Laboratory Tests Test 10/21/19 10:29 10/21/19 16:48 10/21/19 21:07 10/22/19 05:00 Glucose (Fingerstick) 184 mg/dL (70-99) 88 mg/dL (70-99) 147 mg/dL (70-99) White Blood Count 5.1 x10^3/uL (4.0-11.0) Red Blood Count 4.33 x10^6/uL (4.30-5.70) Hemoglobin 10.7 g/dL (13.0-17.5) Hematocrit 33.9 % (39.0-53.0) Mean Corpuscular Volume 78 fL (79-100) Mean Corpuscular Hemoglobin 25 pg (25-35) Mean Corpuscular Hemoglobin Concent 32 g/dL (31-37) Red Cell Distribution Width 15.8 % (11.5-14.5) Platelet Count 181 x10^3/uL (140-400) Neutrophils (%) (Auto) 60 % (31-73) Lymphocytes (%) (Auto) 31 % (24-48) Monocytes (%) (Auto) 7 % (0-9) Eosinophils (%) (Auto) 2 % (0-3) Basophils (%) (Auto) 1 % (0-3) Neutrophils # (Auto) 3.1 x10^3/uL (1.8-7.7) Lymphocytes # (Auto) 1.6 x10^3/uL (1.0-4.8) Monocytes # (Auto) 0.3 x10^3/uL (0.0-1.1) Eosinophils # (Auto) 0.1 x10^3/uL (0.0-0.7) Basophils # (Auto) 0.0 x10^3/uL (0.0-0.2) Test 10/22/19 07:05 10/22/19 08:16 Sodium Level 141 mmol/L (136-145) Potassium Level 4.3 mmol/L (3.5-5.1) Chloride Level 102 mmol/L (98-107) Carbon Dioxide Level 30 mmol/L (21-32) Anion Gap 9 (6-14) Blood Urea Nitrogen 30 mg/dL (8-26) Creatinine 4.4 mg/dL (0.7-1.3) Estimated GFR (Cockcroft-Gault) 17.0 Glucose Level 97 mg/dL (70-99) Calcium Level 9.3 mg/dL (8.5-10.1) Phosphorus Level 2.6 mg/dL (2.6-4.7) Albumin 3.3 g/dL (3.4-5.0) Glucose (Fingerstick) 91 mg/dL (70-99) Objective: Assessment: 1. Influenza A. 2. Fever, nausea and vomiting. 3. Chronic kidney disease, on hemodialysis. 4. Diabetes Plan: Plan of Care completed Tamiflu, renally dosed cont augmentin for 5 more days ok to dc home from id standpoint IBETH RODRIGUEZ MD Oct 22, 2019 10:13
[2019-10-22 11:00] VITALS: BP 140/74
[2019-10-22] MEDS ORDERED: AMOX1TAB10 PO (12:18)
[2019-10-22] MEDS ORDERED: INSU100I13 SQ (12:18)
--- NOTE | 2019-10-22 12:24 | PDOC3 ---
Discharge Summary Visit Information Date of Admission: Oct 17, 2019 Date of Discharge: Oct 22, 2019 Admitting Diagnosis: Influenza A Final Diagnosis Problems Medical Problems: (1) Anemia in chronic kidney disease (CKD) Status: Acute (2) Chronic kidney disease with end stage renal failure on dialysis Status: Acute (3) Generalized weakness Status: Acute (4) Influenza A Status: Acute Brief Hospital Course Allergies Allergies Coded Allergies Type Severity Reaction Last Updated Verified chlorhexidine Allergy Mild 10/19/19 Yes No Known Medication Allergies Allergy Unknown 09/05/18 Yes Influenza Virus Vaccines Adverse Reaction Intermediate Swelling 09/01/18 Yes shrimp Adverse Reaction Intermediate Swelling 09/01/18 Yes Vital Signs Vital Signs Date Time Temp Pulse Resp B/P (MAP) Pulse Ox O2 Delivery O2 Flow Rate FiO2 10/22/19 11:28 Room Air 10/22/19 11:00 98.2 72 18 140/74 (96) 92 98.2 Lab Results Laboratory Tests Test 10/20/19 20:57 10/21/19 07:53 10/21/19 10:29 10/21/19 16:48 Glucose (Fingerstick) 131 mg/dL (70-99) 112 mg/dL (70-99) 184 mg/dL (70-99) 88 mg/dL (70-99) Test 10/21/19 21:07 10/22/19 05:00 10/22/19 07:05 10/22/19 08:16 Glucose (Fingerstick) 147 mg/dL (70-99) 91 mg/dL (70-99) White Blood Count 5.1 x10^3/uL (4.0-11.0) Red Blood Count 4.33 x10^6/uL (4.30-5.70) Hemoglobin 10.7 g/dL (13.0-17.5) Hematocrit 33.9 % (39.0-53.0) Mean Corpuscular Volume 78 fL (79-100) Mean Corpuscular Hemoglobin 25 pg (25-35) Mean Corpuscular Hemoglobin Concent 32 g/dL (31-37) Red Cell Distribution Width 15.8 % (11.5-14.5) Platelet Count 181 x10^3/uL (140-400) Neutrophils (%) (Auto) 60 % (31-73) Lymphocytes (%) (Auto) 31 % (24-48) Monocytes (%) (Auto) 7 % (0-9) Eosinophils (%) (Auto) 2 % (0-3) Basophils (%) (Auto) 1 % (0-3) Neutrophils # (Auto) 3.1 x10^3/uL (1.8-7.7) Lymphocytes # (Auto) 1.6 x10^3/uL (1.0-4.8) Monocytes # (Auto) 0.3 x10^3/uL (0.0-1.1) Eosinophils # (Auto) 0.1 x10^3/uL (0.0-0.7) Basophils # (Auto) 0.0 x10^3/uL (0.0-0.2) Sodium Level 141 mmol/L (136-145) Potassium Level 4.3 mmol/L (3.5-5.1) Chloride Level 102 mmol/L (98-107) Carbon Dioxide Level 30 mmol/L (21-32) Anion Gap 9 (6-14) Blood Urea Nitrogen 30 mg/dL (8-26) Creatinine 4.4 mg/dL (0.7-1.3) Estimated GFR (Cockcroft-Gault) 17.0 Glucose Level 97 mg/dL (70-99) Calcium Level 9.3 mg/dL (8.5-10.1) Phosphorus Level 2.6 mg/dL (2.6-4.7) Albumin 3.3 g/dL (3.4-5.0) Test 10/22/19 11:17 Glucose (Fingerstick) 210 mg/dL (70-99) Laboratory Tests Test 10/21/19 16:48 10/21/19 21:07 10/22/19 05:00 10/22/19 07:05 Glucose (Fingerstick) 88 mg/dL (70-99) 147 mg/dL (70-99) White Blood Count 5.1 x10^3/uL (4.0-11.0) Red Blood Count 4.33 x10^6/uL (4.30-5.70) Hemoglobin 10.7 g/dL (13.0-17.5) Hematocrit 33.9 % (39.0-53.0) Mean Corpuscular Volume 78 fL (79-100) Mean Corpuscular Hemoglobin 25 pg (25-35) Mean Corpuscular Hemoglobin Concent 32 g/dL (31-37) Red Cell Distribution Width 15.8 % (11.5-14.5) Platelet Count 181 x10^3/uL (140-400) Neutrophils (%) (Auto) 60 % (31-73) Lymphocytes (%) (Auto) 31 % (24-48) Monocytes (%) (Auto) 7 % (0-9) Eosinophils (%) (Auto) 2 % (0-3) Basophils (%) (Auto) 1 % (0-3) Neutrophils # (Auto) 3.1 x10^3/uL (1.8-7.7) Lymphocytes # (Auto) 1.6 x10^3/uL (1.0-4.8) Monocytes # (Auto) 0.3 x10^3/uL (0.0-1.1) Eosinophils # (Auto) 0.1 x10^3/uL (0.0-0.7) Basophils # (Auto) 0.0 x10^3/uL (0.0-0.2) Sodium Level 141 mmol/L (136-145) Potassium Level 4.3 mmol/L (3.5-5.1) Chloride Level 102 mmol/L (98-107) Carbon Dioxide Level 30 mmol/L (21-32) Anion Gap 9 (6-14) Blood Urea Nitrogen 30 mg/dL (8-26) Creatinine 4.4 mg/dL (0.7-1.3) Estimated GFR (Cockcroft-Gault) 17.0 Glucose Level 97 mg/dL (70-99) Calcium Level 9.3 mg/dL (8.5-10.1) Phosphorus Level 2.6 mg/dL (2.6-4.7) Albumin 3.3 g/dL (3.4-5.0) Test 10/22/19 08:16 10/22/19 11:17 Glucose (Fingerstick) 91 mg/dL (70-99) 210 mg/dL (70-99) Brief Hospital Course Mr Ellsworth is a 54yo M w/ PMHx ESRD on hemodialysis; peripheral neuropathy, type 2 diabetes, coronary artery disease, congestive heart failure, previous myocardial infarction, hyperlipidemia, hypertension, colon cancer, gastroesopha geal reflux admitted with shortness of breath, weakness. 2-3 day history of increasing shortness of breath, cough, congestion. He took some [id number] medications with no significant improvement. He has severe muscle aches and joint pain. His cough is mostly nonproductive. No documented fever, chills, nausea, vomiting. Allergic to influenza virus vaccine. He had influenza screen, which was positive for influenza A. Seen by pulm, ID, nephrology in consultation. 10/19 poor appetite, little intake so far 10/20 still weak, only fair intake 10/21: Today feeling weak. Cough, non-productive. He has not had a BM since 10/16/19 and has some abdominal firmness. Dialysis today. BM overnight. He has been refusing some therapies and medications over the past 24 hours. He is still coughing a bit, feels weak. Does not wish for therapy, asking if he can stay for dialysis here tomorrow. On PO augmentin. Had his last dose of tamiflu renally dosed. Problem List: A/P: Fever Viral sepsis Chronic kidney disease with end stage renal failure on dialysis Anemia in chronic kidney disease (CKD) Generalized weakness Influenza A+ ESRD on dialysis TTH S Anemia of ESRD Hypertension, Diabetes type 2 on insulin Myalgias, slow to resolve Greater than 30 minutes spent on d/c Discharge Information Condition at Discharge: Improved Follow Up: Weeks (1) Disposition/Orders: D/C to Home Scheduled Amlodipine Besylate (Norvasc) 10 Mg Tablet, 10 MG PO DAILY, (Reported) Entered as Reported by: ROSIO ANDERSEN on 03/16/16 1602 Last Action: Reviewed on 10/18/1917 by MOR PARR Amoxicillin/Potassium Clav (Amox Tr-K Clv 500-125 Mg Tab) 1 Each Tablet, 1 TAB PO DAILY for bronchitis for 5 Days, #5 Prescribed by: LUCAS MUNOZ MD on 10/22/19 1218 Aspirin (Aspirin Ec) 81 Mg Tablet., 81 MG PO DAILY for asprin, (Reported) Entered as Reported by: MOR PARR on 10/18/1917 Last Action: New Order on 10/18/1917 by MOR PARR Atorvastatin Calcium (Atorvastatin Calcium) 10 Mg Tablet, 10 MG PO HS for hld, (Reported) Entered as Reported by: MOR PARR on 10/18/1917 Last Action: New Order on 10/18/1917 by MOR PARR Carvedilol (Carvedilol) 25 Mg Tablet, 1 TAB PO BID, #180 Ref 1 (Reported) Entered as Reported by: JOHN WARE on 06/13/17 1112 Last Action: Reviewed on 10/18/1917 by MOR PARR Cetirizine Hcl (Cetirizine Hcl) 10 Mg Tablet, 10 MG PO DAILY for uri sxs, congestion MDD 1 for 7 Days, #7 Prescribed by: ANTON GRANDE on 01/22/19 104 Last Action: Continued on 10/17/191125 by IBIS RIVERA MD Fluticasone Propionate (Fluticasone Propionate Nasal [place]) 16 Gm [place].susp, 2 SPRAY NS DAILY for congestion MDD 1 for 7 Days, #1 Prescribed by: ANTON GRANDE on 01/22/19 104 Last Action: Continued on 10/17/191125 by IBIS RIVERA MD Folic Acid/Vitamin B Comp W-C (Renal Caps Softgel) 1 Mg Capsule, 1 CAP PO DAILY for renal , #30 Ref 5 (Reported) Entered as Reported by: MARIPOSA BOYD on 01/20/197 Last Action: Reviewed on 10/18/1917 by MOR PARR Furosemide (Lasix) 40 Mg Tablet, 1 TAB PO BID, #60 Ref 2 Prescribed by: TERE SHINE MD on 08/11/18 1316 Last Action: Reviewed on 10/18/1917 by MOR PARR Hydralazine Hcl (Hydralazine Hcl) 50 Mg Tablet, 50 MG PO TID for htn, (Reported) Entered as Reported by: MOR PARR on 10/18/1917 Last Action: New Order on 10/18/1917 by MOR PARR Insulin Glargine,Hum.rec.anlog (Lantus Solostar) 100 Unit/1 Ml Insuln.pen, 30 UNIT SQ QHS for dm for 30 Days, #1 Prescribed by: LUCAS MUNOZ MD on 10/22/19 1218 Insulin Lispro (Humalog) 100 Unit/1 Ml Vial, 15 UNIT SQ TIDWMEALS for dm, (Reported) Entered as Reported by: MOR APRR on 10/18/1923 Last Action: New Order on 10/18/1923 by MOR PARR Omeprazole (Omeprazole) 20 Mg Capsule.dr, 20 MG PO DAILY for gerd, (Reported) Entered as Reported by: MOR PARR on 10/18/1917 Last Action: Converted on 10/18/1923 by MOR PARR [guaiFENesin/CODEINE 100mg/10mg] 5 ML LIQUID, 10 ML PO QID for pleuritic CP when he coughs MDD 1 for 7 Days, #1 Prescribed by: ANTON GRANDE on 01/22/191039 Last Action: Converted on 10/17/191125 by IBIS RIVERA MD Discontinued Medications Oseltamivir Phosphate (Tamiflu) 30 Mg Capsule, 30 MG PO QMWF for flu A MDD 1 for 7 Days, #7 Prescribed by: ANTON GRANDE on 01/22/191039 Last Action: Continued on 10/17/191125 by MD TAMMY CHAPMAN CHRISTOPHER S MD Oct 22, 2019 12:24
[2019-10-22] MEDS ORDERED: HYDR5SYR PO (12:59)
--- NOTE | 2019-10-22 13:27 | NUR ---
Pt refused to sign paperwork and insulin. Esperanza RN gave discharge paperwork, and escorting patient out. Medications were given to patient that were in pharmacy.
== END 2019-10-22 14:00 | disposition home or self-care (01) | DRG 871 ==
LOC: ER 05:00 → 6 SOUTH 07:50
PROVIDERS: ADMIT Family Medicine; ATTEND Family Medicine
PROC: 5A1D70Z Performance of Urinary Filtration, Intermittent, Less than 6 Hours Per Day (ICD-10-PCS; principal; 2019-10-19)
PROC: 5A1D70Z Performance of Urinary Filtration, Intermittent, Less than 6 Hours Per Day (ICD-10-PCS; 2019-10-21)
DX: A41.89 Other specified sepsis (principal); N18.6 End stage renal disease; I13.2 Hypertensive heart and chronic kidney disease with heart failure and with stage 5 chronic kidney disease, or end stage renal disease; N25.81 Secondary hyperparathyroidism of renal origin; I42.0 Dilated cardiomyopathy; F41.9 Anxiety disorder, unspecified; K21.9 Gastro-esophageal reflux disease without esophagitis; E78.00 Pure hypercholesterolemia, unspecified; I25.10 Atherosclerotic heart disease of native coronary artery without angina pectoris; E11.22 Type 2 diabetes mellitus with diabetic chronic kidney disease; E78.5 Hyperlipidemia, unspecified; B97.89 Other viral agents as the cause of diseases classified elsewhere; D89.9 Disorder involving the immune mechanism, unspecified; I50.9 Heart failure, unspecified; E11.42 Type 2 diabetes mellitus with diabetic polyneuropathy; D63.1 Anemia in chronic kidney disease; J10.1 Influenza due to other identified influenza virus with other respiratory manifestations; Z79.4 Long term (current) use of insulin; Z93.3 Colostomy status; Z87.891 Personal history of nicotine dependence; Z85.038 Personal history of other malignant neoplasm of large intestine; I25.2 Old myocardial infarction; Z90.49 Acquired absence of other specified parts of digestive tract; Z99.2 Dependence on renal dialysis; Z88.7 Allergy status to serum and vaccine; Z88.8 Allergy status to other drugs, medicaments and biological substances; Z91.013 Allergy to seafood; Z83.3 Family history of diabetes mellitus; Z82.49 Family history of ischemic heart disease and other diseases of the circulatory system
CPT/HCPCS: 36415; 71045; 80053; 80069; 82962; 83605; 84145; 85007; 85025; 87040; 87804; 94640; 94760; 96374; 96375; J1644; J1815; J2405; J3010; J7620; 99285-25; G0378

== ENCOUNTER → 2021-08-20 | Day surgery (SDC) | payer MEDICARE, OTHER ==
[~2021-08-20] VITALS: Ht 167.6 cm; Wt 93.6 kg
[~2021-08-20] MED LIST changes: +ACET325T9 PO; +ACET500T33 PO; +AMLO-187 PO; -AMLO10TA8 PO; +AMOX1TAB10 PO; -ASPI-612 PO; +ASPI-886 PO; +ATOR10TA60 PO; +BUME2TAB3 PO; +CINA30TA24 PO; +CRESTOR40 MG PO; +DOCU100C28 PO; -DOXY100C2 PO; +DOXY100C3 PO; +ENAL10TA11 PO; +FENO48TA16 PO; +GLYCOPYRROLATE 1 MG/5 ML VIAL. ONE; +HYDR50CA2 PO; +HYDR5SYR PO; +INSU100I27 SQ; +INSU100V6 SQ; -ISOS30TA4 PO; +ISOS30TA68 PO; +IV NORMAL SALINE 1000ML BAG 1,000 ML IV ONE; +IV RINGERS,LACTATED 1000ML 1,000 ML IV SCH; +LIDOCAINE 2% PF 5 ML VIAL. ONE; -LISI1TAB20 PO; +LISI1TAB39 PO; +MULT-496 PO; +OMEP20CA16 PO; +PHENYLEPHRINE in 0.9% NACL PF 1 MG/10 ML SYRINGE. IV ONE; -POLY17PO28 PO; +POLY17PO52 PO; +PROPOFOL 10 MG/ML (20ML) VIAL. IV ONE; +SEVE800T9 PO; +ePHEDrine PF IN SALINE 50 MG/10 ML SYRINGE. IV ONE
[2021-08-20 10:37] VITALS: BP 179/86
--- NOTE | 2021-08-20 12:54 | PDOC1 ---
History and Physical Date of Admission Date of Admission DATE: 08/20/21 TIME: 12:47 Identification/Chief Complaint Chief Complaint Colon cancer surveillance Source Source: Chart review, Patient History of Present Illness History of Present Illness 56 y/o male with cecal cancer resected 2016. Favorable histology. Has not returned for surveillance until recently. Wants renal transplant and needs colonoscopy first. Only complaints are variable stools. EGD at time of diagnosis of colon cancer with mild GERD. Biopsies of stomach and duodenum normal. S/p betsy. Past Medical History Cardiovascular: HTN, Hyperlipidemia Pulmonary: No pertinent hx Heme/Onc: Anemia NOS Renal/: Chronic renal failure (on dialysis) Endocrine: Diabetes, Hyperparathyroidism Past Surgical History Past Surgical History: Cholecystectomy, Colon Resection Family History Family History: Diabetes, Hypertension Social History Smoke: No ALCOHOL: none Drugs: None Current Medications Current Medications Current Medications Ringer's Solution 1,000 ml @ 50 mls/hr Q20H IV ; Start 08/20/21 at 07:00; Stop 08/20/21 at 18:59 Sodium Chloride 1,000 ml @ 100 mls/hr 1X ONCE IV Last administered on 08/20/21at 11:27; Start 08/20/21 at 11:00; Stop 08/20/21 at 20:59 Propofol (Diprivan) 200 mg STK-MED ONCE IV ; Start 08/20/21 at 11:49; Stop 08/20/21 at 11:49; Status DC Lidocaine HCl (Lidocaine Pf 2% Vial) 5 ml STK-MED ONCE .ROUTE ; Start 08/20/21 at 11:49; Stop 08/20/21 at 11:49; Status DC Glycopyrrolate (Robinul) 1 mg STK-MED ONCE .ROUTE ; Start 08/20/21 at 11:50; Stop 08/20/21 at 11:50; Status DC Phenylephrine HCl (PHENYLEPHRINE in 0.9% NACL PF) 1 mg STK-MED ONCE IV ; Start 08/20/21 at 11:50; Stop 08/20/21 at 11:50; Status DC Ephedrine Sulfate (ePHEDrine PF IN SALINE SYRINGE) 50 mg STK-MED ONCE IV ; Start 08/20/21 at 11:52; Stop 08/20/21 at 11:52; Status DC Active Scripts Active Hydrocodone-Homatropine Syrup (Hydrocodone Bit/Homatrop Me-Br) 5 Ml Syrup 5 Ml PO Q4HRS 10 Days Reported Docusate Sodium 100 Mg Capsule 1 Cap PO BID 7 Days Tylenol (Acetaminophen) 325 Mg Tablet 1 Tab PO PRN Q4HRS Tricor (Fenofibrate Nanocrystallized) 48 Mg Tablet 1 Tab PO DAILY Sensipar (Cinacalcet Hcl) 30 Mg Tablet 1 Tab PO DAILY 30 Days Levemir Flextouch (Insulin Detemir) 100 Unit/1 Ml Insuln.pen 45 Unit SQ HS Daily Value (Multivitamin) 1 Each Tablet 1 Tab PO DAILY 30 Days Bumetanide 2 Mg Tablet 1 Tab PO BID Novolog Flexpen (Insulin Aspart) 100 Unit/1 Ml Insuln.pen 14 Unit SQ WITH MEALS Hydroxyzine Pamoate 50 Mg Capsule 1 Cap PO TID Crestor (Rosuvastatin Calcium) 40 Mg Tablet 20 Mg PO HS Tylenol Extra Strength (Acetaminophen) 500 Mg Tablet 500 Mg PO DAILY PRN Renvela (Sevelamer Carbonate) 800 Mg Tablet 1 Tab PO TID 30 Days Omeprazole 20 Mg Capsule.dr 20 Mg PO DAILY Aspirin Ec (Aspirin) 81 Mg Tablet.dr 81 Mg PO DAILY Hydralazine Hcl 50 Mg Tablet 50 Mg PO TID Carvedilol 25 Mg Tablet 1 Tab PO BID Norvasc (Amlodipine Besylate) 10 Mg Tablet 10 Mg PO DAILY Allergies Allergies: Coded Allergies: Influenza Virus Vaccines (Verified Allergy, Intermediate, Swelling, 08/20/21) shrimp (Verified Allergy, Intermediate, Swelling, 08/20/21) chlorhexidine (Verified Allergy, Mild, 08/20/21) Burning ROS Review of System Otherwise negative. Physical Exam General: Alert, Oriented X3, Cooperative, No acute distress HEENT: PERRLA, EOMI Lungs: Clear to auscultation Heart: S1S2, RRR, no gallops, no murmurs Abdomen: Normal bowel sounds, Soft, No tenderness, No hepatosplenomegaly, No masses Rectal Exam: deferred (to procedure) Extremities: No cyanosis, No edema Skin: No significant lesion Neuro: Normal speech, Strength at 5/5 X4 ext, Normal tone, Sensation intact, C ranial nerves 3-12 NL, Reflexes 2+ Psych/Mental Status: Mental status NL, Mood NL Vitals Vitals Vital Signs Date Time Temp Pulse Resp B/P (MAP) Pulse Ox O2 Delivery O2 Flow Rate FiO2 10/25/21 10:37 97.7 72 20 98 97.7 Labs Labs Laboratory Tests Test 08/20/21 10:40 08/20/21 10:56 SARS-CoV-2 Antigen (Rapid) Negative (NEGATIVE) Glucose (Fingerstick) 154 mg/dL (70-99) Laboratory Tests Test 08/20/21 10:40 08/20/21 10:56 SARS-CoV-2 Antigen (Rapid) Negative (NEGATIVE) Glucose (Fingerstick) 154 mg/dL (70-99) VTE Prophylaxis Ordered VTE Prophylaxis Devices: No VTE Pharmacological Prophylaxi: No Assessment/Plan Assessment/Plan IMP: H/o colon cancer, never f/u surveillance. Plan: Colonoscopy. WILBER JOHNSTON MD Aug 20, 2021 12:54
--- NOTE | 2021-08-20 13:20 | PDOC4 ---
PROCEDURE Procedure Colonoscopy Indication: h/o colon cancer; surveillance. Last 2015. Meds: per anesthesia Findings: LISSY--normal --'Scope advanced to ileocolostomy. Prep adequate for polyps <6mm. Mucosa seen normal. No diverticular disease. No polyps, masses, seen. IH's on retroflex. Zena. well. IMP: IH's S/p right hemicolectomy. REC: Repeat colonoscopy 5 years. February f/u with me prn. WILBER JOHNSTON MD Aug 20, 2021 13:20
[2021-08-20 13:41] VITALS: BP 157/67
== END | disposition home or self-care (01) ==
LOC: ENDOS 10:18
PROVIDERS: ATTEND Internal Medicine Gastroenterology
DX: R19.4 Change in bowel habit (principal); R19.7 Diarrhea, unspecified; K64.0 First degree hemorrhoids; K63.89 Other specified diseases of intestine; E66.3 Overweight; I13.2 Hypertensive heart and chronic kidney disease with heart failure and with stage 5 chronic kidney disease, or end stage renal disease; I50.9 Heart failure, unspecified; N18.6 End stage renal disease; E11.22 Type 2 diabetes mellitus with diabetic chronic kidney disease; K21.9 Gastro-esophageal reflux disease without esophagitis; I25.10 Atherosclerotic heart disease of native coronary artery without angina pectoris; E78.00 Pure hypercholesterolemia, unspecified; F41.9 Anxiety disorder, unspecified; Z85.038 Personal history of other malignant neoplasm of large intestine; Z99.2 Dependence on renal dialysis; Z79.4 Long term (current) use of insulin; Z79.899 Other long term (current) drug therapy; Z87.891 Personal history of nicotine dependence; Z90.49 Acquired absence of other specified parts of digestive tract; Z98.890 Other specified postprocedural states; Z88.8 Allergy status to other drugs, medicaments and biological substances; Z20.822 Contact with and (suspected) exposure to COVID-19; Z82.49 Family history of ischemic heart disease and other diseases of the circulatory system; Z83.3 Family history of diabetes mellitus
CPT/HCPCS: 45378; 82962; 87426; J2704; G0105; J2370; J3490